=== PATIENT | male | born 1985 | race Caucasian/White ===

== ENCOUNTER 2020-12-04 17:19 | Inpatient (IN) | payer BC, MEDICARE, MEDICAID, SELFPAY ==
--- NOTE | ~2020-12-04 | CT_ITS ---
EXAMINATION: CT CHEST WITHOUT CONTRAST CLINICAL INFORMATION: Follow up pneumothorax. Suspected right lower lobar pneumonia versus effusion. COMPARISON: CT of the chest done on 12/04/2020. TECHNIQUE: Multidetector volumetric CT imaging of the chest was done. Axial MIP volume rendering provided. Sagittal and coronal reformatted images were obtained. This CT examination was performed using dose optimization techniques as appropriate, variously including the following: *Automated exposure control *Adjustment of mA and/or kV according to patient size (this includes techniques or standardized protocols for targeted exams where dose is matched to indication/reason for exam; i.e. extremities or head) *Use of iterative reconstruction technique DLP: 603 mGy-cm FINDINGS: BASTING MARKER: The tip of the tracheostomy tube is seen 4.6 cm above the level of the julissa. LUNGS: Previously documented bibasilar airspace consolidation associated with air bronchogram (right greater than left) shows no significant interval change. Previously documented multiple scattered sub-5 mm tiny nodules appear unchanged. The tracheobronchial tree is patent. Specifically, no new abnormalities since 12/04/2020. MEDIASTINUM: Stable trace amount of pericardial effusion is noted. The heart size is within normal limits. No mediastinal or hilar lymphadenopathy or significant atherosclerotic disease, unchanged. PLEURA: Trace amount of nondrainable bilateral pleural effusions, unchanged. Previously documented right-sided pneumothorax appears improved without resolution. AXILLA: No lymphadenopathy. UPPER ABDOMEN: Unremarkable. OSSEOUS STRUCTURES: No suspicious focal lesion, unchanged. CT/CT chest wo con IMPRESSION: 1. Trace amount, nondrainable bilateral pleural effusions appears similar to prior study dated 12/04/2020. 2. Bibasilar airspace consolidation associated with air bronchogram, also appears stable since prior study. 3. The site of the right-sided pneumothorax appears smaller, without resolution. No other significant change.
--- NOTE | ~2020-12-04 | XR_ITS ---
EXAMINATION: XR CHEST CLINICAL INFORMATION: Follow-up pneumothorax. COMPARISON: Portable chest radiographs dated 10/06/2020 and 12/05/2020. TECHNIQUE: Frontal view of the chest was obtained. FINDINGS: Support devices: Tracheostomy tube in place. There is a persistent tiny right apical pneumothorax. Mild bibasilar opacification is seen. The left lung is clear. The heart and mediastinal structures are unremarkable without significant shift. XR/XR chest 1V IMPRESSION: 1. Persistent tiny right apical pneumothorax. 2. Mild opacification at the right lung base appears increased and could represent a developing small right pleural effusion.
--- NOTE | ~2020-12-04 | CT_ITS ---
EXAMINATION: CT SOFT TISSUE NECK WITHOUT CONTRAST CLINICAL INFORMATION: Increased resistance to suctioning. COMPARISON: None TECHNIQUE: Helical imaging was performed in the axial plane with generation of coronal and sagittal reformatted images. This CT examination was performed using dose optimization techniques as appropriate, variously including the following: *Automated exposure control *Adjustment of mA and/or kV according to patient size (this includes techniques or standardized protocols for targeted exams where dose is matched to indication/reason for exam; i.e. extremities or head) *Use of iterative reconstruction technique DLP: 1152 mGy-cm FINDINGS: Tracheostomy tube properly positioned within the trachea. Significant amount of secretions present above the tracheostomy tube within the subglottic trachea, as well as within the oropharynx. Laryngeal structures are unremarkable. No retropharyngeal collection is seen. No contour abnormality or pathologic enhancement within the oral cavity or pharyngeal mucosal space. Deep spaces of the neck are symmetric. Parapharyngeal fat is preserved.No extra mucosal soft tissue mass or fluid collection is seen. No cervical adenopathy is identified. The parotid glands are homogeneous in attenuation. The submandibular glands are normal. The carotid sheath vasculature opacify normally. The thyroid gland is normal. The mastoid air cells and visualized portions of the paranasal sinuses are well-aerated. The temporomandibular joints are normal. No periapical disease is identified. No acute osseous abnormalities are seen. Small endplate osteophytes present from C3 through C7. The imaged portions of the brain parenchyma are unremarkable. Small right pneumothorax. Please see dedicated report for the intrathoracic findings. CT/CT soft tissue neck wo con IMPRESSION: * Tracheostomy tube appropriately positioned within the trachea. * Secretions present above the tracheostomy tube within the subglottic trachea, oropharynx and nasopharynx. * No evidence of deep space infection or other abnormality within the neck. * Small right pneumothorax. Please see dedicated report for the CT of chest.
--- NOTE | ~2020-12-04 | CT_ITS ---
EXAMINATION: CT CHEST WITHOUT CONTRAST CLINICAL INFORMATION: Shortness of breath. COMPARISON: Chest radiograph done earlier today at 5:52 PM. TECHNIQUE: Multidetector volumetric CT imaging of the chest was done. Axial MIP volume rendering provided. Sagittal and coronal reformatted images were obtained. This CT examination was performed using dose optimization techniques as appropriate, variously including the following: *Automated exposure control *Adjustment of mA and/or kV according to patient size (this includes techniques or standardized protocols for targeted exams where dose is matched to indication/reason for exam; i.e. extremities or head) *Use of iterative reconstruction technique DLP: 504 mGy-cm FINDINGS: [employer]: Endotracheal tube terminating at 3 cm above the julissa. Low lung volumes with increased interstitial markings. Cardiomegaly. LUNGS: There are consolidative opacities in the right greater than left lung bases with internal air bronchograms and associated small pleural effusions. There is a small to moderate right pneumothorax. There are scattered subcentimeter pulmonary nodules for instance, a 3 mm right upper lobe pulmonary nodule (111, series 10), a 2 mm right upper lobe pulmonary nodule on image 116, a 3 mm pulmonary nodule more inferiorly in the right upper lobe on image 166, a 3 mm pulmonary nodule anteriorly in the right lower lobe on image 173, and a 3 mm left upper lobe pulmonary nodule on image 139. There are mucous secretions above the tracheostomy balloon which is inflated to about 2.5 cm in diameter. Otherwise, the main airways are patent. MEDIASTINUM: Normal heart size with trace amount of pericardial fluid. There are a few enlarged mediastinal and hilar lymph nodes without pathologic enlargement. Normal appearance of the thyroid gland. PLEURA: As above, small pleural effusions bilaterally and a small right pneumothorax. AXILLA: Anasarca. Gynecomastia. No lymphadenopathy. UPPER ABDOMEN: Unremarkable. OSSEOUS STRUCTURES: No acute or aggressive osseous abnormalities. CT/CT chest wo con IMPRESSION: There are bibasilar consolidative changes with associated pleural effusions, concerning for multifocal infection or aspiration. There is a small to moderate right pneumothorax. There are multiple subcentimeter pulmonary nodules of uncertain etiology, possibly infectious or inflammatory. A short-term follow-up is recommended to ensure resolution of these findings. This critical result was discussed with JORGE Martinez at 12/04/2020 10:31 PM and it was ascertained that the content and urgency of the report was understood at the time of direct communication.
--- NOTE | ~2020-12-04 | XR_ITS ---
EXAMINATION: XR CHEST CLINICAL INFORMATION: Low oxygen saturation. Follow up pneumothorax. COMPARISON: Most recent chest radiograph dated 12/05/2020. TECHNIQUE: Frontal view of the chest was obtained. FINDINGS: Redemonstration of a tracheostomy. Minimal persistent right apical pneumothorax, decreased when compared to the prior examination. No pleural effusion. No new airspace consolidation. Stable cardiomediastinal silhouette. XR/XR chest 1V IMPRESSION: Minimal right apical pneumothorax, decreased when compared to the prior examination. Additional chronic findings are unchanged.
--- NOTE | ~2020-12-04 | XR_ITS ---
EXAMINATION: XR CHEST CLINICAL INFORMATION: Follow-up pneumothorax and right pleural effusion. COMPARISON: Chest x-ray December 07, 2020 TECHNIQUE: Frontal view of the chest was obtained. FINDINGS: Tracheostomy tube is similar in appearance. Cardiac silhouette is normal in size. The lungs are mildly hypoinflated. Similar subtle opacity of the right lung base is most suggestive of a small layering pleural effusion. Previously identified pneumothorax not definitively visualized on today's radiograph. XR/XR chest 1V IMPRESSION: -Stable small suspected right-sided pleural effusion. -Right apical pneumothorax not clearly reidentified on today's radiograph.
--- NOTE | ~2020-12-04 | XR_ITS ---
EXAMINATION: XR CHEST CLINICAL INFORMATION: Low O2 sat. Dyspnea. Hypoxia. Question pneumonia. COMPARISON: Most recent CT chest dated 12/08/2020. TECHNIQUE: Frontal view of the chest was obtained. FINDINGS: Resolution of the previously seen small right-sided pleural effusion and right lower lobe airspace opacification. No new airspace consolidation. No pleural effusion or pneumothorax. Stable cardiomediastinal silhouette. Redemonstration of a tracheostomy in appropriate position. XR/XR chest 1V IMPRESSION: No acute cardiopulmonary findings.
--- NOTE | ~2020-12-04 | XR_ITS ---
EXAMINATION: XR CHEST CLINICAL INFORMATION: Question of evolving pneumothorax. COMPARISON: 12/04/2020 TECHNIQUE: Frontal view of the chest was obtained. FINDINGS: Endotracheal tube terminates 4.8 cm above the julissa. Stable small right apical pneumothorax. Bilateral lower lobe streaky airspace opacities redemonstrated, as better seen on the recent CT. Trace bilateral pleural effusions. Normal heart size. XR/XR chest 1V IMPRESSION: Stable small right apical pneumothorax. Bilateral lower lobe airspace opacities redemonstrated, as better seen on the previous CT.
--- NOTE | ~2020-12-04 | US_ITS ---
EXAM: Limited chest ultrasound INDICATION: Rule out right-sided pleural effusion COMPARISON: Chest x-ray earlier today FINDINGS: Ultrasound imaging of the right chest revealed no pleural effusion.
--- NOTE | ~2020-12-04 | XR_ITS ---
EXAMINATION: XR CHEST CLINICAL INFORMATION: Shortness of breath. COMPARISON: None. TECHNIQUE: AP view of the chest was obtained. FINDINGS: Normal appearance of the cardiomediastinal silhouette. There is a midline tracheostomy tube terminating at 4 cm above the julissa. Low lung volumes with diffuse bronchovascular crowding and hazy opacities in the lung bases. No pleural effusion or pneumothorax. No acute osseous findings. XR/XR chest 1V IMPRESSION: Interstitial prominence and somewhat hazy opacities in the lung bases are indeterminate and could be related with bronchovascular crowding and subsegmental atelectases in the setting of low lung volumes. However, multifocal infiltrates are difficult to exclude.
--- NOTE | ~2020-12-04 | US_ITS ---
EXAMINATION: US VENOUS WITH DOPPLER UPPER EXTREMITY, BILATERAL CLINICAL INFORMATION: Bilateral upper extremity swelling. COMPARISON: None TECHNIQUE: Ultrasound of the upper extremity is performed using compression sonography and color and pulse Doppler flow with assessment of augmentation of flow. There is also imaging and Doppler assessment of the jugular and subclavian veins. Spectral analysis with color-flow imaging is performed. Today's examination is limited due to patient immobility and numerous tubes and wires overlying the patient. FINDINGS: Neither internal jugular vein could be visualized due to tracheostomy tube securement straps. Bilateral subclavian and axillary veins are patent without evidence of thrombus. Bilateral brachial, basilic and cephalic veins are patent without evidence of thrombus. Bilateral radial and ulnar veins are patent without evidence of thrombus. US/US venous duplex UE BI IMPRESSION: No DVT demonstrated in the bilateral upper extremities.
--- NOTE | ~2020-12-04 | XR_ITS ---
EXAMINATION: XR CHEST CLINICAL INFORMATION: Status post tracheostomy tube change COMPARISON: December 04, 2020 and earlier on same day today. TECHNIQUE: AP portable view of the chest was obtained. FINDINGS: Tracheostomy tube seen in place. The tip is not readily identified. No pneumothorax identified. No significant pleural effusion. There is a similar appearance at the lung bases with some retrocardiac airspace disease. Heart normal size. No evidence of pulmonary edema. XR/XR chest 1V IMPRESSION: Tracheostomy tube in place with distal tip not readily being identified.. Bilateral lower lobe disease without significant change from prior days study..
[2020-12-04 17:26] VITALS: BP 139/79; PULSE 83; RESP 24; O2SAT 100; BMI 30.4
--- NOTE | 2020-12-04 17:26 | ECG_ITS ---
Test Reason : DYSPNEA Blood Pressure : / mmHG Vent. Rate : 080 BPM Atrial Rate : 080 BPM P-R Int : 148 ms QRS Dur : 090 ms QT Int : 372 ms P-R-T Axes : 052 043 000 degrees QTc Int : 429 ms Normal sinus rhythm Nonspecific T wave abnormality Abnormal ECG No previous ECGs available Referred By: Zion Redman Electronically Signed By:STEVIE CANO MD
--- NOTE | 2020-12-04 17:34 | ED.SOB ---
HPI - SOB/Dyspnea General Chief Complaint: Dyspnea Stated Complaint: VENT PROBLEMS Time Seen by Provider: 12/04/20 17:22 Source: family Mode of arrival: EMS Limitations: other (Status post tracheostomy) History of Present Illness HPI Narrative: Patient with history of ALS diagnose 10/2019 was on BiPAP at home status post tracheostomy and on vent since 10/12 had a complicated medical course was admitted to [facility] with pneumonia at home for last 3 weeks on home vent, for last 2 days having problems with increased mucus plug having high peak pressure ventilator going off frequently. No fever no vomiting patient has a G-tube also patient nonverbal secondary to tracheostomy uses visual lj for communication Related Data Allergies Allergy/AdvReac Type Severity Reaction Status Date / Time succinylcholine Allergy Unknown Verified 12/04/20 17:26 Review of Systems Review of Systems: Limited review of system is patient is nonverbal status post tracheostomy patient using visual lj for communication Yes Unobtainable due to mental condition PMFSH Past Medical History Attestation statement: The following information was validated with the patient. Source: old records reviewed and nursing notes reviewed Medical History ALS (amyotrophic lateral sclerosis) Tracheostomy care Social History Social History Advance Directives: Yes Advance Directives on File: Yes Advance Directives Date on File: 12/04/20 Physical Exam Vital Signs: Vital Signs: Last Vital Signs Temp 99.4 F 12/04/20 18:27 Pulse 80 12/04/20 18:27 Resp 20 12/04/20 18:27 BP 128/74 12/04/20 18:27 Pulse Ox 98 12/04/20 18:27 Body Mass Index 30.4 Appearance: Alert. And awake. In mild distress status post tracheostomy Eyes: PERRLA, No Nystagmus HEENT: Pharynx normal. Oral Mucosa moist Neck: Tracheostomy in place CVS: Normal heart rate and rhythm. Pulses normal. Respiratory: No respiratory distress. Equal air entry bilateral, no rales, full long expiration Abdomen: Soft and nontender. Bowel sounds are present, no mass palpable, no CVA tenderness Skin: Skin warm and dry. Normal skin color. Normal skin turgor. Extremities: No lower extremity edema. Neuro: Alert and awake, quadriparesis with no movements of upper extremity or lower extremity Const: General: cooperative Nutritional Appearance: average body habitus HENMT: Mouth: Normal oral and palatal mucosa present GI: Inspection: Yes normal to inspection Palpation (GI): Soft to palpation and nontender : General: Yes no CVA tenderness Back/Spine/Pelvis: Back: no CVA tenderness MDM - SOB/Dyspnea MDM Narrative Medical decision making narrative: Patient AL is status post tracheostomy on home ventilator which was showing high pressure with frequent alarms over 24 hours. Patient had neurologist at [facility] but will be following Dr. Perez here the [place]. When patient placed on ventilator it was without any alarms when we connected patient's ventilator here there was no problem. Patient has tracheostomy tube without inner cannula. Case discussed with supervisor extrusion plan to keep the patient for observation overnight has unable to get patient's ventilator checked. Will admit the patient for observation Medical Records Attestation: I reviewed the patient's medical records. Lab Data Attestation: I reviewed the patient's lab results. Result diagrams: 12/04/20 18:18 12/04/20 18:18 Labs: Lab Results 12/04/20 12/04/20 12/04/20 Range/Units 18:18 18:18 18:18 WBC 11.2 H (4.8-10.8) X10*3/uL RBC 4.14 L (4.60-5.80) X10*6/uL Hgb 12.3 L (14.0-18.0) g/dl Hct 37.6 L (42-52) % MCV 90.8 (80-98) fL MCH 29.7 (27.0-33.0) pg MCHC 32.7 (31.0-36.0) g/dl RDW 13.5 (11.0-16.0) % Plt Count 285 (160-400) X10*3/uL MPV 9.2 L (9.4-12.4) fL Immature Gran % (Auto) 0.2 (0.0-0.4) % Neut % (Auto) 79.9 H (45-73) % Lymph % (Auto) 14.5 L (20-40) % [place] % (Auto) 3.6 (2-11) % Eos % (Auto) 1.4 (0-4) % Baso % (Auto) 0.4 (0-2) % Lymph # (Auto) 1.6 (1.2-4.9) X10*3/uL Winona # (Auto) 0.4 (0.1-1.2) X10*3/uL Eos # (Auto) 0.2 (0.0-0.4) X10*3/uL Baso # (Auto) 0.0 (0.0-0.2) X10*3/uL Abs Immat Gran (auto) 0.02 (0.00-0.03) X10*3/uL Absolute Neuts (auto) 9.0 H (2.0-8.3) X10*3/uL Absolute Nucleated RBC 0.000 (0.0-0.012) X10*3/uL Nucleated RBC % (auto) 0.0 (0.0-0.2) /100WBC Sodium 138 (135-145) mmol/L Potassium 4.2 (3.3-5.1) mmol/L Chloride 104 (96-108) mmol/L Carbon Dioxide 22 (22-29) mmol/L Anion Gap 16 (12-20) BUN 13 (9-16) mg/dL Creatinine 0.47 L (0.5-1.4) mg/dL Estim Creat Clear Calc 244.5 Estimated GFR > 60 Random Glucose 99 (60-115) mg/dL Lactic Acid (0.5-2.0) mmol/L Calcium 9.4 (8.4-10.2) mg/dL Total Bilirubin 0.4 (0.0-1.0) mg/dL Direct Bilirubin 0.2 (0.0-0.5) mg/dL AST 12 (5-37) U/L ALT 16 (0-40) U/L Alkaline Phosphatase 105 (39-117) U/L Total Protein 6.9 (6.5-8.0) g/dL Albumin 4.1 (3.5-5.0) g/dL COVID-19 (GEORGINA) Negative (Negative) COVID-19 Clin Com See Note 12/04/20 Range/Units 18:18 WBC (4.8-10.8) X10*3/uL RBC (4.60-5.80) X10*6/uL Hgb (14.0-18.0) g/dl Hct (42-52) % MCV (80-98) fL MCH (27.0-33.0) pg MCHC (31.0-36.0) g/dl RDW (11.0-16.0) % Plt Count (160-400) X10*3/uL MPV (9.4-12.4) fL Immature Gran % (Auto) (0.0-0.4) % Neut % (Auto) (45-73) % Lymph % (Auto) (20-40) % Win[place] % (Auto) (2-11) % Eos % (Auto) (0-4) % Baso % (Auto) (0-2) % Lymph # (Auto) (1.2-4.9) X10*3/uL Win[place] # (Auto) (0.1-1.2) X10*3/uL Eos # (Auto) (0.0-0.4) X10*3/uL Baso # (Auto) (0.0-0.2) X10*3/uL Abs Immat Gran (auto) (0.00-0.03) X10*3/uL Absolute Neuts (auto) (2.0-8.3) X10*3/uL Absolute Nucleated RBC (0.0-0.012) X10*3/uL Nucleated RBC % (auto) (0.0-0.2) /100WBC Sodium (135-145) mmol/L Potassium (3.3-5.1) mmol/L Chloride (96-108) mmol/L Carbon Dioxide (22-29) mmol/L Anion Gap (12-20) BUN (9-16) mg/dL Creatinine (0.5-1.4) mg/dL Estim Creat Clear Calc Estimated GFR Random Glucose (60-115) mg/dL Lactic Acid 1.4 (0.5-2.0) mmol/L Calcium (8.4-10.2) mg/dL Total Bilirubin (0.0-1.0) mg/dL Direct Bilirubin (0.0-0.5) mg/dL AST (5-37) U/L ALT (0-40) U/L Alkaline Phosphatase (39-117) U/L Total Protein (6.5-8.0) g/dL Albumin (3.5-5.0) g/dL COVID-19 (GEORGINA) (Negative) COVID-19 Clin Com Imaging Data Chest x-ray: Attestation: I personally reviewed and interpreted this imaging study as follows: Radiologist's impression: FINDINGS: Normal appearance of the cardiomediastinal silhouette. There is a midline tracheostomy tube terminating at 4 cm above the julissa. Low lung volumes with diffuse bronchovascular crowding and hazy opacities in the lung bases. No pleural effusion or pneumothorax. No acute osseous findings. XR/XR chest 1V IMPRESSION: Interstitial prominence and somewhat hazy opacities in the lung bases are indeterminate and could be related with bronchovascular crowding and subsegmental atelectases in the setting of low lung volumes. However, multifocal infiltrates are difficult to exclude. Discharge Plan Discharge Clinical Impression: Chronic hypoxemic respiratory failure, ALS (amyotrophic lateral sclerosis) Patient Disposition: Admitted As Inpatient
[2020-12-04 17:56] VITALS: BP 134/74; PULSE 86; O2SAT 100
[2020-12-04 18:27] VITALS: BP 128/74; PULSE 80; RESP 20; TEMP 37.4; O2SAT 98
[2020-12-04 18:28] LABS: MANUAL DIFF FLAG NO
[2020-12-04 18:31] LABS: Basophils Percent Auto 0.4 % (0-2); Eosinophils Absolute Auto 0.2 X10*3/uL (0.0-0.4); Eosinophils Percent Auto 1.4 % (0-4); Hematocrit 37.6 % (42-52); Hemoglobin 12.3 g/dl (14.0-18.0); Imm Gran Abs Auto 0.02 X10*3/uL (0.00-0.03); Imm Gran Pct Auto 0.2 % (0.0-0.4); Lymphocytes Absolute Auto 1.6 X10*3/uL (1.2-4.9); Lymphocytes Percent Auto 14.5 % (20-40); Mean Corpuscular HGB Conc 32.7 g/dl (31.0-36.0); Mean Corpuscular Hemoglobin 29.7 pg (27.0-33.0); Mean Corpuscular Volume 90.8 fL (80-98); Mean Platelet Volume 9.2 fL (9.4-12.4); Monocytes Absolute Auto 0.4 X10*3/uL (0.1-1.2); Monocytes Percent Auto 3.6 % (2-11); Neutrophils Percent Auto 79.9 % (45-73); Platelet Count 285 X10*3/uL (160-400); Red Blood Count 4.14 X10*6/uL (4.60-5.80); Red Cell Distribution Width 13.5 % (11.0-16.0); White Blood Count 11.2 X10*3/uL (4.8-10.8)
[2020-12-04 18:40] LABS: Lactic Acid 1.4 mmol/L (0.5-2.0)
[2020-12-04 18:49] LABS: Alanine Aminotransferase 16 U/L (0-40); Albumin Level 4.1 g/dL (3.5-5.0); Alkaline Phosphatase 105 U/L (39-117); Anion Gap 16 (12-20); Aspartate Amino Transferase 12 U/L (5-37); Bilirubin Direct 0.2 mg/dL (0.0-0.5); Bilirubin Total 0.4 mg/dL (0.0-1.0); Blood Urea Nitrogen 13 mg/dL (9-16); Calcium 9.4 mg/dL (8.4-10.2); Carbon Dioxide 22 mmol/L (22-29); Chloride 104 mmol/L (96-108); Creatinine Clr Calc Pharmacy 244.5; Estimated Glomerular Filt Rate > 60; Glucose Random 99 mg/dL (60-115); Potassium 4.2 mmol/L (3.3-5.1); Sodium 138 mmol/L (135-145); Total Protein 6.9 g/dL (6.5-8.0)
[2020-12-04 18:50] LABS: COVID-19 Test Negative (Negative)
--- NOTE | 2020-12-04 20:17 | PC.NURSE ---
Jasmeet Blanco, ICU PA-C for pt to take home meds. Meds administered by caregiver at bedside via G-tube: hydromorphone, oxycodone, diazepam, gabapentin, ondansetron.
[2020-12-04 20:22] VITALS: O2SAT 98
--- NOTE | 2020-12-04 20:34 | P.HPCC_ITS ---
History of Present Illness Date of Service: 12/04/20 <Yvonne Nelson PA-C - Last Filed: 12/05/20 06:56> Attending physician on admission: Cesario Jarrett <Yvonne Nelson PA-C - Last Filed: 12/05/20 06:56> Chief Complaint: Hypoxic respiratory failure <Yvonne Nelson PA-C - Last Filed: 12/05/20 06:56> Patient is a 34-year-old male with a past medical history of SOD1 ALS who received a tracheostomy and G-tube in September 2020 at [facility] presents with acute on chronic respiratory failure secondary to his vents malfunctioning at home /high peak pressures. His hospital course was complicated by pneumonia in the end of September while in rehab, he had to return to [facility] (10/21-10/31) but was discharged and has been home for the past 3 weeks with his family managing his care. He is here with his fiancee and his father and they state he was having peak pressures up to low 40's for 90 minutes at a time, after irrigating several times, the peak pressures went down but eventually they came back up again. They tried the other vent and had the same cyclical issues and elevated peak pressures, so they were forced to bag the patient until they got him to the emergency room. They met a lot of resistance when they tried to push on the bag but eventually fluid came up out his mouth and they were able to bag some more. They state over the past week they were also having trouble passing suction catheter at all different levels, approx 6cm-24cm deep, and state they have seen some green sputum while doing trach care during the same time frame. Patient states he feels like there is a ?rock in his throat . They deny he has had fevers, increased secretions, vomiting or change in bladder or bowels. Patient is currently being treated with nystatin for oral thrush, family has been applying it to his tongue and suctioning it. Patient's neurologist is Dr. Christensen in the ALS Clinic at [facility], he was diagnosed in Oct 2019. 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 Finally, the trach was placed in September of 2020. He is followed by Dr Smart [place] [facility] [place]. Patients home vent settings are as follows: AC TV410, RR20, PEEP 8, itime 1.3, on room air. Labs revealed a slightly elevated WBC at 11.2, VSS, pt comfortable. PE revealed inability to pass suction catheter past 24 centimetres. Respiratory therapist informed me she was unable to pass it at approximately 6-8 centimetres when he initially arrived to the emergency department. He was not having high peak pressures and saline irrigation helped. Patient speaks via an eye gaze device and is very well informed of his care and is able to answer all questions appropriately. He is on a multitude of medications at home including lovenox, scheduled meds of oxycodone, hydromorphone, gabapentin and diazepam as well as atrovent and albuterol. Reviewed with patient and his family that he is a full code. Assessment and plan discussed with Dr. Jarrett. <Yvonne Nelson PA-C - Last Filed: 12/05/20 06:56> Review of Systems Review of Systems: Yes all other systems are reviewed and are negative <Yvonne Nelson PA-C - Last Filed: 12/05/20 06:56> [facility] Past Medical History Medical History: Medical History (Updated 12/06/20 @ 10:54 by Kristen Cunha MD) ALS (amyotrophic lateral sclerosis) Mucus plugging of bronchi Tracheostomy care <Yvonne Nelson PA-C - Last Filed: 12/05/20 06:56> Functional capacity: bed bound <Yvonne Nelson PA-C - Last Filed: 12/05/20 06:56> Social History Social History: Social History Currently Displaying Signs/Symptoms of Drug Intoxication Withdrawal: No Advance Directives: Yes Advance Directives on File: Yes Advance Directives Date on File: 12/04/20 Do you have thoughts of harming others: None Do you have a plan to hurt others: No Plan service: No Current occupational status: previously employed <KARMEN Martinez Last Filed: 12/05/20 06:56> Meds Allergies/Adverse reactions: Allergies Allergy/AdvReac Type Severity Reaction Status Date / Time succinylcholine Allergy Unknown Verified 12/04/20 17:26 <Yvonne Nelson PA-C - Last Filed: 12/05/20 06:56> Home medications: Home Medications Medication Instructions Recorded Confirmed Last Taken Type acetaminophen 500 mg/15 mL oral 650 mg FEEDING TUBE Q4H PRN 12/04/20 12/04/20 12/04/20 History liquid (Pain Relief Adult) albuterol sulfate 90 mcg/actuation 2 puff INHALATION Q6H 12/04/20 12/04/20 12/04/20 History aerosol inhaler baclofen 10 mg tablet 5 mg FEEDING TUBE Q8H 12/04/20 12/04/20 12/04/20 History cholecalciferol (vitamin D3) 25 1,000 unit FEEDING TUBE DAILY 12/04/20 12/04/20 12/04/20 History mcg (1,000 unit) tablet diazepam 5 mg/5 mL (1 mg/mL) oral 4 mg FEEDING TUBE Q6H PRN 12/04/20 12/06/20 12/04/20 History solution docusate sodium 50 mg/5 mL oral 100 mg FEEDING TUBE BID 12/04/20 12/04/20 Unknown History liquid (Silace) enoxaparin 40 mg/0.4 mL 40 mg SUBCUT DAILY 12/04/20 12/04/20 12/04/20 History subcutaneous syringe fentanyl 100 mcg/hr transdermal 1 patch TOPICAL Q3D 12/04/20 12/04/20 12/02/20 History patch gabapentin 250 mg/5 mL oral 600 mg FEEDING TUBE Q8H 12/04/20 12/04/20 12/04/20 History solution hydromorphone 1 mg/mL oral liquid 1.5 ml FEEDING TUBE Q3H PRN 12/04/20 12/04/20 12/04/20 History ipratropium bromide 17 2 puff INHALATION Q6H 12/04/20 12/04/20 12/04/20 History mcg/actuation HFA aerosol inhaler (Atrovent HFA) lidocaine 5 % topical patch 1 patch TOPICAL DAILY 12/04/20 12/04/20 12/04/20 History nicotine 14 mg/24 hr daily 1 patch TOPICAL DAILY 12/04/20 12/04/20 12/04/20 History transdermal patch nystatin 100,000 unit/mL oral 4 ml PO QID 12/04/20 12/04/20 12/04/20 History suspension ondansetron HCl 4 mg tablet 4 mg FEEDING TUBE Q6H PRN 12/04/20 12/04/20 12/04/20 History oxycodone 5 mg/5 mL oral solution 20 mg FEEDING TUBE Q3H PRN 12/04/20 12/04/20 12/04/20 History pantoprazole 40 mg tablet,delayed 1 tab PO DAILY 12/04/20 12/04/20 Unknown History release polyethylene glycol 3350 17 17 g FEEDING TUBE Q2D 12/04/20 12/04/20 12/04/20 History gram/dose oral powder sennosides 8.8 mg/5 mL oral syrup 5 - 10 ml FEEDING TUBE BEDTIME PRN 12/04/20 12/04/20 12/04/20 History (senna) thiamine mononitrate (vit B1) 100 100 mg FEEDING TUBE DAILY 12/04/20 12/04/20 History mg tablet (Vitamin B-1 (mononitrate)) trazodone 50 mg tablet 1 tab FEEDING TUBE BEDTIME PRN 12/04/20 12/04/20 Unknown History zinc sulfate 50 mg zinc (220 mg) 220 mg FEEDING TUBE DAILY 12/04/20 12/04/20 12/04/20 History capsule <Yvonne Nelson PA-C - Last Filed: 12/05/20 06:56> Physical Exam 2 Vital Signs: Vital Signs: Last Vital Signs Temp 99.4 F 12/04/20 18:27 Pulse 80 12/04/20 18:27 Resp 20 12/04/20 18:27 BP 128/74 12/04/20 18:27 Pulse Ox 98 12/04/20 18:27 Body Mass Index 30.4 <Yvonne Nelson PA-C - Last Filed: 12/05/20 06:56> Const: General: cooperative, healthy appearing, comfortable, no acute distress and well developed <Yvonne Nelson PA-C - Last Filed: 12/05/20 06:56> Orientation/consciousness: patient oriented x3 <Yvonne Nelson PA-C - Last Filed: 12/05/20 06:56> Limitations: no limitations <KARMEN Martinez Last Filed: 12/05/20 06:56> HENMT: Head: Yes normal to inspection <Yvonne Nelson PA-C - Last Filed: 12/05/20 06:56> Eyes: General: appearance normal, both eyes and all related structures <Yvonne Nelson PA-C - Last Filed: 12/05/20 06:56> Neck: Other: trach in place <Yvonne Nelson PA-C - Last Filed: 12/05/20 06:56> Neck: Yes full ROM <Yvonne Nelson PA-C - Last Filed: 12/05/20 06:56> Resp: Effort & Inspection: normal respiratory effort <Yvonne Nelson PA-C - Last Filed: 12/05/20 06:56> Auscultation: clear to auscultation bilaterally <Yvonne Nleson PA-C - Last Filed: 12/05/20 06:56> Cardio: Rate: regular rate <Yvonne Nelson PA-C - Last Filed: 12/05/20 06:56> Rhythm: regular rhythm <Yvonne Nelson PA-C - Last Filed: 12/05/20 06:56> Heart sounds: normal S1 and S2 <Yvonne Nelson PA-C - Last Filed: 12/05/20 06:56> GI: Inspection: Yes normal to inspection <KARMEN Martinez Last Filed: 12/05/20 06:56> Palpation (GI): Soft to palpation and nontender <Yvonne Nelson PA-C - Last Filed: 12/05/20 06:56> Skin: General skin exam: no rashes or lesions noted <MAURISIO Martinez - Last Filed: 12/05/20 06:56> Neuro: General: patient oriented x3 <Yvonne Nelson PA-C - Last Filed: 12/05/20 06:56> Extrem: General: Yes normal to inspection <KARMEN Martinez Last Filed: 12/05/20 06:56> Results Labs CBC and Chem 7: : 12/07/20 05:10 12/07/20 05:10 <KARMEN Martinez Last Filed: 12/05/20 06:56> Labs: Laboratory Results - last 24 hr 12/04/20 12/04/20 12/04/20 18:18 18:18 18:18 MCV 90.8 MCH 29.7 MCHC 32.7 RDW 13.5 Plt Count 285 MPV 9.2 L Immature Gran % (Auto) 0.2 Neut % (Auto) 79.9 H Lymph % (Auto) 14.5 L Stanton % (Auto) 3.6 Eos % (Auto) 1.4 Baso % (Auto) 0.4 Lymph # (Auto) 1.6 Stanton # (Auto) 0.4 Eos # (Auto) 0.2 Baso # (Auto) 0.0 Abs Immat Gran (auto) 0.02 Absolute Neuts (auto) 9.0 H Absolute Nucleated RBC 0.000 Nucleated RBC % (auto) 0.0 Anion Gap 16 Estim Creat Clear Calc 244.5 Estimated GFR > 60 Random Glucose 99 Lactic Acid Calcium 9.4 Total Bilirubin 0.4 Direct Bilirubin 0.2 AST 12 ALT 16 Alkaline Phosphatase 105 Total Protein 6.9 Albumin 4.1 COVID-19 (GEORGINA) Negative COVID-19 Clin Com See Note 12/04/20 18:18 MCV MCH MCHC RDW Plt Count MPV Immature Gran % (Auto) Neut % (Auto) Lymph % (Auto) [place] % (Auto) Eos % (Auto) Baso % (Auto) Lymph # (Auto) Stanton # (Auto) Eos # (Auto) Baso # (Auto) Abs Immat Gran (auto) Absolute Neuts (auto) Absolute Nucleated RBC Nucleated RBC % (auto) Anion Gap Estim Creat Clear Calc Estimated GFR Random Glucose Lactic Acid 1.4 Calcium Total Bilirubin Direct Bilirubin AST ALT Alkaline Phosphatase Total Protein Albumin COVID-19 (GEORGINA) COVID-19 Clin Com <Yvonne Nelson PA-C - Last Filed: 12/05/20 06:56> Imaging Radiologist's Impressions: Impressions Chest X-Ray 12/04/20 17:26 IMPRESSION: Interstitial prominence and somewhat hazy opacities in the lung bases are indeterminate and could be related with bronchovascular crowding and subsegmental atelectases in the setting of low lung volumes. However, multifocal infiltrates are difficult to exclude. CT/CT soft tissue neck wo con IMPRESSION: *? Tracheostomy tube appropriately positioned within the trachea. *? Secretions present above the tracheostomy tube within the subglottic trachea, oropharynx and nasopharynx. *? No evidence of deep space infection or other abnormality within the neck. CT/CT chest wo con IMPRESSION: There are bibasilar consolidative changes with associated pleural effusions, concerning for multifocal infection or aspiration. There is a small to moderate right pneumothorax. There are multiple subcentimeter pulmonary nodules of uncertain etiology, possibly infectious or inflammatory. A short-term follow-up is recommended to ensure resolution of these findings. <Yvonne Nelson PA-C - Last Filed: 12/05/20 06:56> Assessment and Plan (1) ALS (amyotrophic lateral sclerosis): Status: Acute <Yvonne Nelson PA-C - Last Filed: 12/05/20 06:56> Continue lovenox, nebs, pain meds, nebs and vitamins <Yvonne Nelson PA-C - Last Filed: 12/05/20 06:56> (2) Acute on chronic respiratory failure with hypoxia: Status: Acute <KARMEN Martinez Last Filed: 12/05/20 06:56> Patient to get neck CT and chest CT to look for further signs of pneumonia or inflammation, likely bronchoscopy tomorrow with Dr. Perez. Continue home vent settings. Per Dr Jarrett, no antibiotics indicated at this time. <Yvonne Nelson PA-C - Last Filed: 12/05/20 06:56> (3) Thrush, oral: Status: Acute <Yvonne Nelson PA-C - Last Filed: 12/05/20 06:56> Continue Nystatin swish and suction <Yvonne Nelson PA-C - Last Filed: 12/05/20 06:56> (4) Pneumothorax on right: Status: Acute <KARMEN Martinez Last Filed: 12/05/20 06:56> Small right sided, will monitor, consult to thoracic surgery, they will review CXR in the AM and stop by later in the day to see pt. <Yvonne Nelson PA-C - Last Filed: 12/05/20 06:56> (5) Bilateral pneumonia: Status: Acute <Yvonne Nelson PA-C - Last Filed: 12/05/20 06:56> Started Jordy and Patrice, will get sputum culture as well as records from [facility] for recent pneumonia admission. <Yvonne Nelson PA-C - Last Filed: 12/05/20 06:56> (6) Bilateral pleural effusion: Status: Acute <Yvonne Nelson PA-C - Last Filed: 12/05/20 06:56> Monitor, ? chronic as notes from [facility] show pt had them on 10/01/00 and 10/23/00 <Yvonne Nelson PA-C - Last Filed: 12/05/20 06:56>
[2020-12-04 20:49] VITALS: PULSE 76; O2SAT 97
--- NOTE | 2020-12-04 21:30 | PHA.MEDREC ---
Pharmacy Consult ? Medication Reconciliation Pharmacy has completed the medication reconciliation. Spoke with patients roxanne in ED who had a detailed list of home meds
[2020-12-04 21:48] VITALS: BP 125/73; O2SAT 95
--- NOTE | 2020-12-04 23:54 | PC.NURSE ---
Report given to VALET CASHIER, pt attached to portable monitor and transported in stable condition w/ all belongings via this RN and RT Herman. Sister remains at bedside
[2020-12-05] VITALS (36 sets, daily range): BP systolic 116–176; BP diastolic 54–93; PULSE 68–109; RESP 12–20; TEMP 35.4–37.1; O2SAT 91–100; BMI 30.4
[2020-12-05] MEDS: HYDROmorphone HCl 2 MG TABLET G-TUBE ×5 (00:12→20:17)
[2020-12-05] MEDS: Piperacillin Sodium/Tazobactam 4.5 GM in 0.9 % Sodium Chloride 100 ML IV ×2 (00:13→06:11)
[2020-12-05] MEDS: oxyCODONE HCl Immed Release 5 MG TABLET 20 MG G-TUBE ×5 (00:13→20:18)
[2020-12-05] MEDS: Albuterol/Iprat 2.5/0.5MG 3 ML AMPUL.NEB INHALE ×5 (00:21→20:53)
[2020-12-05] MEDS: diazePAM 5 MG TABLET 2.5 MG G-TUBE ×2 (01:04→20:17)
[2020-12-05] MEDS: vancomycin HCL 1,250 MG in 0.9 % Sodium Chloride 250 ML 166.67 MG IV (01:04)
--- NOTE | 2020-12-05 02:00 | ECG_ITS ---
Test Reason : BASE LINE EKG Blood Pressure : / mmHG Vent. Rate : 090 BPM Atrial Rate : 090 BPM P-R Int : 000 ms QRS Dur : 086 ms QT Int : 374 ms P-R-T Axes : 000 042 -24 degrees QTc Int : 457 ms Normal sinus rhythm [address] & T wave abnormality, consider inferior ischemia Abnormal ECG ST more depressed Inferior leads Lateral leads Referred By: Yvonne Nelson Electronically Signed By:STEVIE CANO MD
[2020-12-05 03:47] LABS: Appearance Urine HAZY; Color Urine YELLOW; Glucose Urine UA NEG (NEG); Leukocyte Esterase Urine NEG (NEG); Nitrite Urine NEG (NEG); Urine Blood NEG (NEG); Urine Ketones NEG (NEG); Urine Protein NEG (NEG-TRACE)
[2020-12-05 03:54] LABS: UACC Culture Trigger NO
[2020-12-05 05:30] LABS: VBG Base Excess -2.8 mmol/L; VBG HCO3 21 mmol/L (22-26); VBG pCO2 37 mmHg; VBG pH 7.37 (7.32-7.43); VBG pO2 88 mmHg
[2020-12-05 05:50] LABS: MANUAL DIFF FLAG NO
[2020-12-05 05:52] LABS: Basophils Absolute Auto 0.1 X10*3/uL (0.0-0.2); Basophils Percent Auto 0.5 % (0-2); Eosinophils Absolute Auto 0.1 X10*3/uL (0.0-0.4); Eosinophils Percent Auto 1.1 % (0-4); Hematocrit 36.9 % (42-52); Imm Gran Abs Auto 0.05 X10*3/uL (0.00-0.03); Imm Gran Pct Auto 0.4 % (0.0-0.4); Lymphocytes Absolute Auto 1.5 X10*3/uL (1.2-4.9); Lymphocytes Percent Auto 11.5 % (20-40); Mean Corpuscular HGB Conc 32.5 g/dl (31.0-36.0); Mean Corpuscular Hemoglobin 30.1 pg (27.0-33.0); Mean Corpuscular Volume 92.5 fL (80-98); Mean Platelet Volume 9.1 fL (9.4-12.4); Monocytes Absolute Auto 0.5 X10*3/uL (0.1-1.2); Neutrophils Absolute Auto 10.5 X10*3/uL (2.0-8.3); Neutrophils Percent Auto 82.5 % (45-73); Platelet Count 296 X10*3/uL (160-400); Red Blood Count 3.99 X10*6/uL (4.60-5.80); Red Cell Distribution Width 13.4 % (11.0-16.0); White Blood Count 12.8 X10*3/uL (4.8-10.8)
[2020-12-05 05:57] LABS: Venous Blood Gas Refer to POC result
[2020-12-05] MEDS: Ondansetron ODT 4 MG TAB.RAPDIS TRANSLINGU ×2 (06:11→09:29)
[2020-12-05] MEDS: Pantoprazole Sodium 40 MG/10 ML VIAL IVPUSH (06:11)
[2020-12-05 06:14] LABS: Anion Gap 14 (12-20); Blood Urea Nitrogen 13 mg/dL (9-16); Calcium 9.2 mg/dL (8.4-10.2); Carbon Dioxide 24 mmol/L (22-29); Chloride 106 mmol/L (96-108); Creatinine Clr Calc Pharmacy 239.4; Estimated Glomerular Filt Rate > 60; Glucose Random 108 mg/dL (60-115); Magnesium 2.1 mg/dL (1.6-2.6); Phosphorus 6.5 mg/dL (2.7-4.5); Potassium 4.4 mmol/L (3.3-5.1); Sodium 140 mmol/L (135-145)
[2020-12-05 06:22] LABS: Troponin-I High Sensitivity 3.7 ng/L (<3.5-35.0)
[2020-12-05 08:40] LABS: Procalcitonin 0.03 ng/mL
[2020-12-05] MEDS: Gabapentin 600 MG TABLET G-TUBE ×3 (08:58→20:16)
[2020-12-05] MEDS: Baclofen 10 MG TABLET 5 MG G-TUBE ×3 (08:58→20:16)
[2020-12-05] MEDS: Docusate Sodium 100 MG/10 ML LIQUID G-TUBE (08:59)
[2020-12-05] MEDS: Nicotine 14 MG PATCH.TD24 TRANSDERMA (09:00)
[2020-12-05] MEDS: Zinc Sulfate 220 MG CAPSULE G-TUBE (09:00)
[2020-12-05] MEDS: Lidocaine 4 % Patch ADH..PATCH 1 PATCH TRANSDERMA (09:01)
[2020-12-05] MEDS: Enoxaparin Sodium 40 MG/0.4 ML SYRINGE SUBCUT (09:02)
[2020-12-05 09:34] LABS: Glucose, Whole Blood 139 mg/dL (60-115)
[2020-12-05] MEDS: fentaNYL 100 MCG PATCH.TD72 TRANSDERMA (09:53)
--- NOTE | 2020-12-05 12:03 | MHC.CLN ---
Addendum entered by Chika Shaffer RD 12/05/20 12:07: AGREE WITH PROVIDER'S ASSESSMENT BELOW Original Note: PT IS AT INCREASED NUTRITION RISK R/T HOME TUBE FEEDING SECONDARY TO ALS AND LOW [employer]IMAEL PT'S HOME TUBE FEEDING PROVIDES 2358 KCALS (25.9 KCALS/KG), 102 GRAMS PROTEIN (1.12 G/KG), AND 1209 CC FREE WATER FROM FORMULA W/ 250 CC WATER FLUSHES Q 4 HOURS (29.8 CC/KG) RECOMMEND COMPARABLE TUBE FEEDING VITAL 1.5 AT MAX GOAL RATE 65 ML/HR TO PROVIDE 2340 KCALS (25.7 KCALS/KG), 105 GRAMS PROTEIN (1.15 G/KG), AND 1192 CC FREE WATER FROM FORMULA W/ 240 CC WATER FLUSHES Q 4 HOURS (29 CC/KG) MONITOR TOLERANCE AND LYTES
[2020-12-05] MEDS: Lidocaine HCl 2 % MPF 5 ML VIAL INTRACAMER (13:00)
[2020-12-05] MEDS: cefEPime HCl 2 GM in 0.9 % Sodium Chloride 50 ML IV ×2 (13:17→20:16)
[2020-12-05] MEDS: Acetaminophen Oral Liquid 650 MG/20.3 ML SOLUTION G-TUBE (13:32)
[2020-12-05] MEDS: Metoclopramide HCl 10 MG/2 ML VIAL IVPUSH (14:00)
--- NOTE | 2020-12-05 14:05 | PM.CNGS ---
History of Present Illness Consult details Consult date: 12/05/20 Reason for consult: other (Right pneumothorax) Narrative: Patient is a 34 y.o. male with a PMH of SOD1 ALS who [facility] chronic [facility] failure with hypoxia. Patient's family reportedly was having difficulty suctioning tracheostomy and peak pressures in the low 40's for approx 90 minutes at a time. Due to this, they brought the patient in for further evaluation and ended up bagging him prior to arrival dislodging some fluid out of his mouth. On arrival, patient had a CXR done which showed small right apical PTX which was then followed with a chest CT scan. Chest CT showed bibasilar consolidative changes with associated pleural effusions, concerning for multifocal infection or aspiration, a small to moderate right pneumothorax, and multiple subcentimeter pulmonary nodules of uncertain etiology, possibly infectious or inflammatory. Patient subsequently started on IV abx for PNA, had a bronchoscopy performed by Dr. Perez today, and a repeat CXR was performed this am which again showed stable small right-sided pneumothorax. Thoracic surgery consulted for further management of right pneumothorax. Patient seen and examined this afternoon with father at bedside. Nonverbal, uses computer to communicate. Denies any worsening SOB, resp distress, cough, fevers, or chills. Feels ok. Review of Systems Review of Systems: Yes all other systems are reviewed and are negative Constitutional: Constitutional: Reports no additional constitutional complaints Eyes: Eyes: Reports as per HPI ENT: Reports system reviewed and no additional complaints, except as documented Cardiovascular: Cardiovascular: Reports no additional cardiovascular complaints Respiratory: Respiratory: Reports no additional respiratory complaints Gastrointestinal: Gastrointestinal: Reports no additional gastrointestinal complaints Genitourinary: Genitourinary: Reports no additional male genitourinary complaints Musculoskeletal: Musculoskeletal: Reports no additional musculoskeletal complaints Neurologic: Reports system reviewed and no additional complaints, except as documented Psychiatric: Psychiatric: Reports no additional psychiatric complaints Endocrine: Endocrine: Reports no additional endocrine complaints REPLACED BY [facility] Past Medical History Medical History (Updated 12/26/20 @ 13:03 by Ladarius Perez MD) ALS (amyotrophic lateral sclerosis) Chronic hypercapnic respiratory failure Mucus plugging of bronchi Pneumothorax Tracheostomy care Functional capacity: bed bound Social History Social History (Updated 12/26/20 @ 10:20 by SUNDAR Tan) Patient Tobacco Use Status: Former Tobacco user Tobacco use type: Cigarette Years Smoked: 20 years Advance Directives Date on File: 12/04/20 service: No Current occupational status: previously employed Meds Allergies Allergy/AdvReac Type Severity Reaction Status Date / Time succinylcholine Allergy Severe Cardiac Verified 12/26/20 10:15 Arrest Active Medications: Current Medications Acetaminophen (Acetaminophen Oral Liquid 650 Mg/20.3 Ml Solution) 650 mg G-TUBE Q4H PRN PRN Reason: Pain (Scale Score 1-3) Last Admin: 12/05/20 13:32 Dose: 650 mg Documented by: Albuterol/Ipratropium (Albuterol/Iprat 2.5/0.5mg 3 Ml Ampul.Neb) 3 ml INHALE RQ6H [facility] Last Admin: 12/05/20 11:11 Dose: 3 ml Documented by: Baclofen (Baclofen 10 Mg Tablet) 5 mg G-TUBE TID [facility] Last Admin: 12/05/20 08:58 Dose: 5 mg Documented by: Diazepam (Diazepam 5 Mg Tablet) 2.5 mg G-TUBE Q6H PRN PRN Reason: Muscle Spasm Last Admin: 12/05/20 01:04 Dose: 2.5 mg Documented by: Docusate Sodium (Docusate Sodium 100 Mg/10 Ml Liquid) 100 mg G-TUBE BID [facility] Last Admin: 12/05/20 08:59 Dose: 100 mg Documented by: Enoxaparin Sodium (Enoxaparin Sodium 40 Mg/0.4 Ml Syringe) 40 mg SUBCUT DAILY [facility] Last Admin: 12/05/20 09:02 Dose: 40 mg Documented by: Fentanyl (Fentanyl 100 Mcg Patch.Td72) 100 mcg TRANSDERMA Q3D [facility] Last Admin: 12/05/20 09:53 Dose: 100 mcg Documented by: Gabapentin (Gabapentin 600 Mg Tablet) 600 mg G-TUBE TID [facility] Last Admin: 12/05/20 08:58 Dose: 600 mg Documented by: Hydromorphone HCl (Hydromorphone Hcl 2 Mg Tablet) 2 mg G-TUBE Q3H PRN PRN Reason: Pain (Scale Score 4-6) Last Admin: 12/05/20 09:04 Dose: 2 mg Documented by: Cefepime HCl 2 gm/ Sodium (Chloride) 50 mls @ 100 mls/hr IV Q8H [facility] Last Admin: 12/05/20 13:17 Dose: 100 mls/hr Documented by: Lidocaine (Lidocaine 4 % Patch Adh..Patch) 1 patch TRANSDERMA DAILY [facility] Last Admin: 12/05/20 09:01 Dose: 1 patch Documented by: Nicotine (Nicotine 14 Mg Patch.Td24) 14 mg TRANSDERMA DAILY [facility] Last Admin: 12/05/20 09:00 Dose: 14 mg Documented by: Nystatin (Nystatin Oral Susp 500,000 Unit/5 Ml Oral.Susp) 400,000 unit PO QID [facility]; Protocol Last Admin: 12/05/20 13:18 Dose: Not Given Documented by: Ondansetron HCl (Ondansetron Odt 4 Mg Tab.Rapdis) 4 mg TRANSLINGU Q6H PRN PRN Reason: Nausea Last Admin: 12/05/20 09:29 Dose: 4 mg Documented by: Ondansetron HCl (Ondansetron Hcl 4 Mg/2 Ml Vial) 4 mg IVPUSH Q8H PRN PRN Reason: Nausea Oxycodone HCl (Oxycodone Hcl Immed Release 5 Mg Tablet) 20 mg G-TUBE Q3H PRN PRN Reason: Pain (Scale Score 4-6) Last Admin: 12/05/20 09:03 Dose: 20 mg Documented by: Pantoprazole Sodium (Pantoprazole Sodium 40 Mg/10 Ml Vial) 40 mg IVPUSH DAILY@0630 [facility] Last Admin: 12/05/20 06:11 Dose: 40 mg Documented by: Pharmacy Consult (Consult Rx Vancomycin Dosing) 1 each MISCELLANE DAILY PRN PRN Reason: Consult order Polyethylene Glycol (Polyethylene Glycol 3350 17 Gm Powd.Pack) 17 gm G-TUBE Q2D@0900 [facility] Senna (Senna [place] Extract Oral Syrup 15 Ml Syrup) 15 ml G-TUBE BEDTIME PRN PRN Reason: Constipation Thiamine HCl (Thiamine Hcl 100 Mg Tablet) 100 mg G-TUBE DAILY [facility] Last Admin: 12/05/20 11:10 Dose: Not Given Documented by: Trazodone HCl (Trazodone Hcl 50 Mg Tablet) 50 mg G-TUBE BEDTIME PRN PRN Reason: Sleep Vitamin D (Cholecalciferol (Vitamin D3) 25 Mcg Tablet) 25 mcg G-TUBE DAILY [facility] Last Admin: 12/05/20 11:10 Dose: Not Given Documented by: Zinc Sulfate (Zinc Sulfate 220 Mg Capsule) 220 mg G-TUBE DAILY [facility] Last Admin: 12/05/20 09:00 Dose: 220 mg Documented by: Home Medications Medication Instructions Recorded Confirmed Last Taken Type acetaminophen 500 mg/15 mL oral 650 mg FEEDING TUBE Q4H PRN 12/04/20 12/04/20 12/04/20 History liquid (Pain Relief Adult) albuterol sulfate 90 mcg/actuation 2 puff INHALATION Q6H 12/04/20 12/04/20 12/04/20 History aerosol inhaler baclofen 10 mg tablet 5 mg FEEDING TUBE Q8H 12/04/20 12/04/20 12/04/20 History cholecalciferol (vitamin D3) 25 1,000 unit FEEDING TUBE DAILY 12/04/20 12/04/20 12/04/20 History mcg (1,000 unit) tablet diazepam 5 mg/5 mL (1 mg/mL) oral 4 mg FEEDING TUBE Q6H PRN 12/04/20 12/06/20 12/04/20 History solution docusate sodium 50 mg/5 mL oral 100 mg FEEDING TUBE BID 12/04/20 12/04/20 Unknown History liquid (Silace) enoxaparin 40 mg/0.4 mL 40 mg SUBCUT DAILY 12/04/20 12/04/20 12/04/20 History subcutaneous syringe fentanyl 100 mcg/hr transdermal 1 patch TOPICAL Q3D 12/04/20 12/04/20 12/02/20 History patch gabapentin 250 mg/5 mL oral 600 mg FEEDING TUBE Q8H 12/04/20 12/04/20 12/04/20 History solution lidocaine 5 % topical patch 1 patch TOPICAL DAILY 12/04/20 12/04/20 12/04/20 History nicotine 14 mg/24 hr daily 1 patch TOPICAL DAILY 12/04/20 12/04/20 12/04/20 History transdermal patch ondansetron HCl 4 mg tablet 4 mg FEEDING TUBE Q6H PRN 12/04/20 12/04/20 12/04/20 History oxycodone 5 mg/5 mL oral solution 20 mg FEEDING TUBE Q3H PRN 12/04/20 12/04/20 12/04/20 History polyethylene glycol 3350 17 17 g FEEDING TUBE Q2D 12/04/20 12/04/20 12/04/20 History gram/dose oral powder sennosides 8.8 mg/5 mL oral syrup 5 - 10 ml FEEDING TUBE BEDTIME PRN 12/04/20 12/04/20 12/04/20 History (senna) thiamine mononitrate (vit B1) 100 100 mg FEEDING TUBE DAILY 12/04/20 12/04/20 12/04/20 History mg tablet (Vitamin B-1 (mononitrate)) trazodone 50 mg tablet 1 tab FEEDING TUBE BEDTIME PRN 12/04/20 12/04/20 Unknown History zinc sulfate 50 mg zinc (220 mg) 220 mg FEEDING TUBE DAILY 12/04/20 12/04/20 12/04/20 History capsule bupropion HCl 100 mg tablet mg PO 12/26/20 Unknown History famotidine 20 mg tablet 20 mg PO BID 12/26/20 Unknown History fluconazole 40 mg/mL oral mg PO 12/26/20 Unknown History suspension Physical Exam Vital Signs: Vital Signs: Last Vital Signs Temp 95.8 F L 12/05/20 07:53 Pulse 3 L 12/05/20 13:00 Resp 18 12/05/20 13:00 BP 158/89 H 12/05/20 13:00 Pulse Ox 100 12/05/20 13:00 Oxygen Flow Rate 21 12/04/20 20:22 Body Mass Index 30.4 Const: General: cooperative, healthy appearing, comfortable and no acute distress Nutritional Appearance: well nourished Orientation/consciousness: oriented to person, oriented to place, oriented to time and patient oriented x3 Limitations: other limitations (ALS, communicates with computer device) HENMT: Head: Yes normal to inspection, Yes normocephalic and Yes atraumatic Mouth: Normal oral and palatal mucosa present Eyes: Visual Hawk: normal visual hawk by confrontation Alignment and Position: alignment normal Periorbital: periorbital findings normal Conjunctivae: conjunctivae normal Sclerae: sclerae normal Pupils: Pupil accommodation reflex normal EOM: EOMs intact bilaterally Neck: Neck: Yes normal visual inspection, Yes full ROM, Yes no lymphadenopathy, Yes trachea midline, Yes supple, No lymphadenopathy, No tender, No tracheal deviation and Yes tracheostomy present Lymphatic: no lymphadenopathy noted Chest: Chest palpation & inspection: normal inspection of the chest and no crepitus Resp: Other: Lungs CTA with fine crackles to bilat bases. Tracheostomy in place. Patient on ventilator. Chest expansion is symmetrical. No SQ air palpated Effort & Inspection: normal respiratory effort, able to speak in complete sentences, normal respiratory pattern, no audible wheezes, no cough, no pursed lip breathing, no respiratory distress, no stridor, not tachypneic and no tracheal deviation Auscultation: clear to auscultation bilaterally Cardio: Jugular venous distension: no JVD Palpation: normal PMI Rate: regular rate Rhythm: regular rhythm Heart sounds: S1 normal heart sound present, S2 normal heart sound present, no click, no gallops, no murmurs and no rubs GI: Inspection: Yes normal to inspection Auscultation: normal bowel sounds : General: Yes no CVA tenderness Back/Spine/Pelvis: Back: no CVA tenderness Thoracic/Lumbar Spine: thoracic and lumbar spine normal to inspection Skin: General skin exam: no rashes or lesions noted and dry skin Lesions: no lesions Rashes: no rashes Neuro: General: oriented to person, oriented to place, oriented to time and patient oriented x3 Extrem: General: Yes capillary refill normal and Yes no clubbing, cyanosis or edema Psych: Appearance: grossly normal and well kempt Mental Status: mental status grossly normal Speech and movement: Normal speech and movement present and Clear speech present Affect: normal affect Attitude: cooperative Thought process: Normal thought process present Thought content: Normal thought content present Results Labs Result diagrams: 12/11/20 05:09 12/11/20 05:09 Labs: Abnormal lab results 12/04/20 12/04/20 12/05/20 Range/Units 18:18 18:18 05:23 WBC 11.2 H 12.8 H (4.8-10.8) X10*3/uL RBC 4.14 L 3.99 L (4.60-5.80) X10*6/uL Hgb 12.3 L 12.0 L (14.0-18.0) g/dl Hct 37.6 L 36.9 L (42-52) % MPV 9.2 L 9.1 L (9.4-12.4) fL Neut % (Auto) 79.9 H 82.5 H (45-73) % Lymph % (Auto) 14.5 L 11.5 L (20-40) % Abs Immat Gran (auto) 0.05 H (0.00-0.03) X10*3/uL Absolute Neuts (auto) 9.0 H 10.5 H (2.0-8.3) X10*3/uL VBG HCO3 (22-26) mmol/L Creatinine 0.47 L (0.5-1.4) mg/dL POC Glucose (60-115) mg/dL Phosphorus (2.7-4.5) mg/dL 12/05/20 12/05/20 12/05/20 Range/Units 05:23 05:23 09:30 WBC (4.8-10.8) X10*3/uL RBC (4.60-5.80) X10*6/uL Hgb (14.0-18.0) g/dl Hct (42-52) % MPV (9.4-12.4) fL Neut % (Auto) (45-73) % Lymph % (Auto) (20-40) % Abs Immat Gran (auto) (0.00-0.03) X10*3/uL Absolute Neuts (auto) (2.0-8.3) X10*3/uL VBG HCO3 21 L (22-26) mmol/L Creatinine 0.48 L (0.5-1.4) mg/dL POC Glucose 139 H (60-115) mg/dL Phosphorus 6.5 H (2.7-4.5) mg/dL Short CBC 12/04/20 12/05/20 Range/Units 18:18 05:23 WBC 11.2 H 12.8 H (4.8-10.8) X10*3/uL Hgb 12.3 L 12.0 L (14.0-18.0) g/dl Hct 37.6 L 36.9 L (42-52) % Plt Count 285 296 (160-400) X10*3/uL BMP 12/04/20 12/05/20 18:18 05:23 Sodium 138 140 Potassium 4.2 4.4 Chloride 104 106 Carbon Dioxide 22 24 BUN 13 13 Creatinine 0.47 L 0.48 L Calcium 9.4 9.2 Liver Function 12/04/20 Range/Units 18:18 Total Bilirubin 0.4 (0.0-1.0) mg/dL Direct Bilirubin 0.2 (0.0-0.5) mg/dL AST 12 (5-37) U/L ALT 16 (0-40) U/L Alkaline Phosphatase 105 (39-117) U/L Albumin 4.1 (3.5-5.0) g/dL Urine 12/05/20 Range/Units 03:38 Urine Color YELLOW Urine Appearance HAZY Urine pH 6.0 (5.0-8.0) Ur Specific [place] 1.010 (1.005-1.025) Urine Protein NEG (NEG-TRACE) MG/DL Urine Glucose (UA) NEG (NEG) MG/DL All other labs normal. Imaging Chest x-ray: report reviewed and image reviewed CT scan - chest: report reviewed and image reviewed Assessment and Plan (1) Pneumothorax on right: Status: Resolved Patient is a 34 y.o. male with a PMH of SOD1 ALS who [facility] failure with hypoxia who was found to have a small right pneumothorax. Right pneumothorax: 1st occurence of small right apical PTX noted on CXR and chest CT scan. Too small for bedside tube and remains stable at this time. Pneumothorax likely related to increased intrathoracic pressure during manual ambu-bagging of patient prior to arrival to ER If right pneumothorax increases, would recommend IR pigtail chest tube placement. Recommend repeating CXR in am. If stable, no plan for intervention. Spoke with Dr. Jarrett and he is in agreement. Cough, deep breathe, supplemental O2 Tracheostomy suctioning Multiple pulmonary nodules found on CT: Unsure of etiology at this time but would recommend a short-term chest CT scan in 3 months to assess resolution. Likely inflammatory in nature. Patient may follow-up with pulmonary in the outpatient setting seeing as he is already followed by Dr. Perez to discuss findings of chest CT scan Case discussed with Dr. Luong. Thank you for this consult. Procedures Date of Service Date of Service: 12/05/20
--- NOTE | 2020-12-05 14:39 | MHC.CM.PN ---
Addendum entered by Debi Carey 12/05/20 14:45: HCP scanned into EMR Original Note: Pt with ALS in ICU with respiratory distress/ recurrent PNA. Pt has a trach collar and a home vent. Pt sleeping during CM visit: information obtained from pt's family: austin Cooper and review of EMR and discussions with care team. Pt resides at home with 24/7 family care. [facility] however, according to Allison, service has not yet started d/t 'staffing and training issues'. Pt has all adaptive equipment and uses a sight board to communicate. He requires ALS transport d/t need for trach care. Family is interested in having [facility] services [facility] - broad referrals agreed upon with family knowing barriers to [facility]: staffing, trach training, payor contracts. CM to follow
[2020-12-05] MEDS: fentaNYL citrate/PF 100 MCG/2 ML VIAL IVPUSH (14:45)
[2020-12-05] MEDS: ondansetron HCL 4 MG/2 ML VIAL IVPUSH ×3 (15:00→20:34)
--- NOTE | 2020-12-05 15:05 | PM.CCPN ---
Subjective Subjective Date of Service: 12/05/20 Interval History: Mr. Valencia is a 34 yo M with ALS and chronic respiratory failure who was admitted to the ICU last night because of tracheostomy problems and ventilatory failure. The patient is followed by Dr. Christensen in the ALS Clinic at [facility].? He was diagnosed in October 2019. 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 Finally, a tracheostomy and PEG were placed 10/01/20 at [facility].? Following that, he went to rehab for about a week, got transferred back to [facility] with pneumonia a week later, was in the ICU at [facility] for another 2 weeks, then went back to rehab for about another week, then went home, to be followed by Dr. Perez from [facility].? He?s been home for about the last 3 weeks. The patient lives in a house with his fiancee.? He has additional outstanding family support from his sister, parents, and hoist cylinder loader.? He is ventilated at home on the following settings:? AC 20, Vt 410cc, PEEP 8cm, insp time 1.3 sec. ?They do not have oxygen at home at this time, although they have a prescription for it that is pending.? The patient has a low volume TTS trach cuff that is water filled. Patient speaks via an eye gaze computer and is very well informed of his care and is able to answer all questions appropriately.? He is on a multitude of medications at home including lovenox, scheduled meds of oxycodone, hydromorphone, gabapentin and diazepam as well as atrovent and albuterol. The patient was BIBA last night bec his ventilator was signaling high peak pressures, up to low 40's for 90 minutes at a time.? After irrigating several times, the peak pressures went down but eventually they came back up again. They tried their second ventilator and had the same problems, so they were forced to bag the patient until they got him to the emergency room. ?Over the past week they were also having trouble passing the suction catheter.? The patient himself noted that he feelt like there was a ?rock in his throat .? The patient has had no fevers, increased secretions, vomiting or change in bladder or bowels.? Patient is currently being treated with nystatin for oral thrush, family has been applying it to his tongue and suctioning it. In the ED, the patient was afebrile, with Sat 96% on room air.? He was comfortable.? He was ventilated in the ED with normal pressures.? The suction catheter was only able to be passed about 10?.? Labs in the ED revealed a slightly elevated WBC at 11.2.? Chemistries were unremarkable.? Chest x-ray showed prominent interstitial markings and somewhat hazy opacities in lung bases.? The x-ray also shows a small apical pneumothorax on the right, which the radiologist missed, and which was noted on the subsequent CT scan.? The CT scan also shows a right basilar pneumonia, and also some minor infiltrate in the left base. Patient was admitted to the ICU and ventilated overnight on room air with sats running mostly in the high 90s.? Because of the CT scan and white count, he was started on empiric Vanco and Zosyn. This morning, the patient is completely awake and able to communicate via his eye gaze computer.? He has been a bit diaphoretic and has been complaining of nausea, which he has frequently, but responds readily to Zofran.? On AC 20/400/24%/+8, his? RR is 20, Ve 8L, PIP 16-20, ETCO2 56, Sat 97%.? VBG this morning showed 7.37/37/-2.? HR 89, SR.? BP 158/89.? No JVD at 20-30?.? Chest is CTA w normal exp phase.? RRR, normal-sounding S1 and S2, with no murmur or gallops.? The abdomen is flat and benign.? When we suctioned his PEG tube, we got out 800 cc primarily tube feed.? No edema. I watched Dr. Perez do bronchoscopy.? The lumen of the trach tube was narrowed by secretions.? Otherwise, there was mild tracheobronchitis but no sign of severe pneumonia. Tracheobronchial anatomy was normal. LABORATORY DATA:? As below.? Chemistries are unremarkable, other than phosphorus of 6.5. MICROBIOLOGY:? Sputum Gram stain from early this morning showed 4+ polys with 2+ Gram-negative rods and 1+ yeast. IMPRESSION:? 34 yo young man with ALS. 1. ALS 2. Trach tube occluded by inspisated secretions.? We?ll change to a 7.0 or 8.0 Portex DIC. 3. RLL pneumonia.? Last time he was at [facility] in early October, he grew Pseudomonas out of a respiratory culture that had intermediate resistance to Zosyn, and apparent sensitivity to cefepime.? We will discontinue the Vanco and Zosyn and put him on cefepime. ?We?re trying to get the exact sensitivity pattern from [facility]. 4. High residuals.? CT does not show a gastric dil.? We?ll give him one dose of Reglan, see how he does. ADDENDUM at 14:50:? I assisted Dr. Perez in changing the trach tube to a Portex DIC 8.0 trach.? Post-procedure CXR shows good positioning.? The right-sided apical pneumothorax is still there, same size as it was this morning.? I changed his vent setting to AC 20/400/22%/+6. Critical care time (including extensive review of [facility] records and mult extended d/w family): ?2+ hrs. Critical Care Time (minutes): 120 Physical Exam Vital Signs: Vital Signs: Last Vital Signs Temp 95.8 F L 12/05/20 07:53 Pulse 86 12/05/20 14:00 Resp 20 12/05/20 14:00 BP 159/92 H 12/05/20 14:00 Pulse Ox 95 12/05/20 14:00 Oxygen Flow Rate 21 12/04/20 20:22 Body Mass Index 30.4 Objective Data Labs CBC & Chem 7: 12/05/20 05:23 12/05/20 05:23 Labs: Laboratory Results - last 24 hr 12/04/20 12/04/20 12/04/20 18:18 18:18 18:18 WBC 11.2 H RBC 4.14 L Hgb 12.3 L Hct 37.6 L MCV 90.8 MCH 29.7 MCHC 32.7 RDW 13.5 Plt Count 285 MPV 9.2 L Immature Gran % (Auto) 0.2 Neut % (Auto) 79.9 H Lymph % (Auto) 14.5 L [place] % (Auto) 3.6 Eos % (Auto) 1.4 Baso % (Auto) 0.4 Lymph # (Auto) 1.6 [place] # (Auto) 0.4 Eos # (Auto) 0.2 Baso # (Auto) 0.0 Abs Immat Gran (auto) 0.02 Absolute Neuts (auto) 9.0 H Absolute Nucleated RBC 0.000 Nucleated RBC % (auto) 0.0 VBG pH VBG pCO2 VBG pO2 VBG HCO3 VBG O2 Saturation VBG Base Excess Sodium 138 Potassium 4.2 Chloride 104 Carbon Dioxide 22 Anion Gap 16 BUN 13 Creatinine 0.47 L Estim Creat Clear Calc 244.5 Estimated GFR > 60 POC Glucose Random Glucose 99 Lactic Acid Calcium 9.4 Phosphorus Magnesium Total Bilirubin 0.4 Direct Bilirubin 0.2 AST 12 ALT 16 Alkaline Phosphatase 105 Troponin I High Sens Total Protein 6.9 Albumin 4.1 Procalcitonin Urine Color Urine Appearance Urine pH Ur Specific [place] Urine Protein Urine Glucose (UA) Urine Ketones Urine Blood Urine Nitrite Ur Leukocyte Esterase COVID-19 ([facility]) Negative COVID-19 Clin Com See Note 12/04/20 12/05/20 12/05/20 18:18 03:38 05:23 WBC 12.8 H RBC 3.99 L Hgb 12.0 L Hct 36.9 L MCV 92.5 MCH 30.1 MCHC 32.5 RDW 13.4 Plt Count 296 MPV 9.1 L Immature Gran % (Auto) 0.4 Neut % (Auto) 82.5 H Lymph % (Auto) 11.5 L [place] % (Auto) 4.0 Eos % (Auto) 1.1 Baso % (Auto) 0.5 Lymph # (Auto) 1.5 [place] # (Auto) 0.5 Eos # (Auto) 0.1 Baso # (Auto) 0.1 Abs Immat Gran (auto) 0.05 H Absolute Neuts (auto) 10.5 H Absolute Nucleated RBC 0.000 Nucleated RBC % (auto) 0.0 VBG pH VBG pCO2 VBG pO2 VBG HCO3 VBG O2 Saturation VBG Base Excess Sodium Potassium Chloride Carbon Dioxide Anion Gap BUN Creatinine Estim Creat Clear Calc Estimated GFR POC Glucose Random Glucose Lactic Acid 1.4 Calcium Phosphorus Magnesium Total Bilirubin Direct Bilirubin AST ALT Alkaline Phosphatase Troponin I High Sens Total Protein Albumin Procalcitonin Urine Color YELLOW Urine Appearance HAZY Urine pH 6.0 Ur Specific [place] 1.010 Urine Protein NEG Urine Glucose (UA) NEG Urine Ketones NEG Urine Blood NEG Urine Nitrite NEG Ur Leukocyte Esterase NEG COVID-19 ([facility]) COVID-19 Clin Com 12/05/20 12/05/20 12/05/20 05:23 05:23 05:23 WBC RBC Hgb Hct MCV MCH MCHC RDW Plt Count MPV Immature Gran % (Auto) Neut % (Auto) Lymph % (Auto) [place] % (Auto) Eos % (Auto) Baso % (Auto) Lymph # (Auto) [place] # (Auto) Eos # (Auto) Baso # (Auto) Abs Immat Gran (auto) Absolute Neuts (auto) Absolute Nucleated RBC Nucleated RBC % (auto) VBG pH VBG pCO2 VBG pO2 VBG HCO3 VBG O2 Saturation VBG Base Excess Sodium 140 Potassium 4.4 Chloride 106 Carbon Dioxide 24 Anion Gap 14 BUN 13 Creatinine 0.48 L Estim Creat Clear Calc 239.4 Estimated GFR > 60 POC Glucose Random Glucose 108 Lactic Acid Calcium 9.2 Phosphorus 6.5 H Magnesium 2.1 Total Bilirubin Direct Bilirubin AST ALT Alkaline Phosphatase Troponin I High Sens 3.7 Total Protein Albumin Procalcitonin 0.03 Urine Color Urine Appearance Urine pH Ur Specific [place] Urine Protein Urine Glucose (UA) Urine Ketones Urine Blood Urine Nitrite Ur Leukocyte Esterase COVID-19 ([facility]) COVID-19 Clin Com 12/05/20 12/05/20 05:23 09:30 WBC RBC Hgb Hct MCV MCH MCHC RDW Plt Count MPV Immature Gran % (Auto) Neut % (Auto) Lymph % (Auto) [place] % (Auto) Eos % (Auto) Baso % (Auto) Lymph # (Auto) [place] # (Auto) Eos # (Auto) Baso # (Auto) Abs Immat Gran (auto) Absolute Neuts (auto) Absolute Nucleated RBC Nucleated RBC % (auto) VBG pH 7.37 VBG pCO2 37 VBG pO2 88 VBG HCO3 21 L VBG O2 Saturation 96.0 VBG Base Excess -2.8 Sodium Potassium Chloride Carbon Dioxide Anion Gap BUN Creatinine Estim Creat Clear Calc Estimated GFR POC Glucose 139 H Random Glucose Lactic Acid Calcium Phosphorus Magnesium Total Bilirubin Direct Bilirubin AST ALT Alkaline Phosphatase Troponin I High Sens Total Protein Albumin Procalcitonin Urine Color Urine Appearance Urine pH Ur Specific [place] Urine Protein Urine Glucose (UA) Urine Ketones Urine Blood Urine Nitrite Ur Leukocyte Esterase COVID-19 ([facility]) COVID-19 Clin Com Microbiology Microbiology Results: Microbiology 12/05/20 00:59 Sputum - Suctioned Gram Stain - Final Quality Stroke Does the patient have a stroke diagnosis?: No VTE Prior VTE?: No VTE Risk Level:: Medical - low VTE Device Contraindication: Treatment Not Indicated VTE Drug Contraindication: Treatment Not Indicated Critical Care Time Critical Care Time (minutes): 120
[2020-12-05] MEDS: lisinopriL 5 MG TABLET G-TUBE (15:15)
--- NOTE | 2020-12-05 15:20 | PC.RT ---
12/05/20 trach changed at bedside to 8.0 Portex DIC
--- NOTE | 2020-12-05 16:36 | P.CONPL_ITS ---
History of Present Illness History of Present Illness Consult date: 12/05/20 Chief complaint: Hypoxic resp failure Narrative: I SAW THIS 34 YEARS OLD MALE , THIS MORNING IN THE INTENSIVE CARE UNIT. HE IS ADMITTED SINCE LAST NIGHT, WITH THE HER RESPIRATORY DISTRESS , HIGH PEAK PRESSURE NOTED IN THE RESPIRATORY SYSTEM. AND HYPOXEMIA REQUIRING OXYGEN SUPPLEMENTATION. THE HISTORY IS QUITE SAD, THIS THE YOUNG MALE WAS DIAGNOSED TO HAVE ACUTE IS AMYOTROPHIC LATERAL SCLEROSIS, AFFECTING HIS RESPIRATORY MUSCLE, DIAGNOSED 1ST TIME IN 2019. HE HAD BEEN STARTED ON NON VENTILATORY SUPPORT AT NIGHT WITH BIPAP. IN SEPTEMBER 2020 PATIENT REQUIRED TRACHEOSTOMY AND GASTRIC TUBE PLACEMENT, WHICH WAS DONE AT [facility]. FOR HIS SEVERE VENTILATORY FAILURE HE WAS STARTED ON VENTILATOR WITH THE TIDAL VOLUME 410, RESPIRATORY RATE 20, PEEP OF 8 CM HE WAS NOT REQUIRING OXYGEN. HE SPENT SEVERAL WEEKS AT A REHAB FACILITY AND THEN WAS DISCHARGED HOME, HIS FAMILY TAKING CARE OF THE RESPIRATOR WELL SUCTIONING, WITH THE HELP OF JOB CHANGE CREW MEMBER. AND HE SHE IS ALSO ON GASTRIC FEEDINGS THROUGH THE TUBE. HAS HISTORY DAY THE FAMILY NOTED THAT HIS PEAK PRESSURE SCOTT QUITE FREQUENTLY TO 40-90 CM SUCTIONING BECAME DIFFICULT, AND A BLOCKAGE WAS FELT TO BELOW THE TRACH TUBE . THE PATIENT FELT LIKE A BALL IN HIS THROAT. HE DID NOT HAVE FEVER OR CHILLS, OR ANY CHEST PAIN. Review of Systems Review of Systems: Yes Unobtainable due to mental condition PMFSH Past Medical History Medical History (Updated 12/05/20 @ 16:48 by Kristen Cunha MD) ALS (amyotrophic lateral sclerosis) Mucus plugging of bronchi Tracheostomy care Functional capacity: bed bound Social History Social History Currently Displaying Signs/Symptoms of Drug Intoxication Withdrawal: No Advance Directives: Yes Advance Directives on File: Yes Advance Directives Date on File: 12/04/20 Do you have thoughts of harming others: None Do you have a plan to hurt others: No Plan service: No Current occupational status: previously employed Meds Allergies Allergy/AdvReac Type Severity Reaction Status Date / Time succinylcholine Allergy Unknown Verified 12/04/20 17:26 Active Medications: Current Medications Acetaminophen (Acetaminophen Oral Liquid 650 Mg/20.3 Ml Solution) 650 mg G-TUBE Q4H PRN PRN Reason: Pain (Scale Score 1-3) Last Admin: 12/05/20 13:32 Dose: 650 mg Documented by: Albuterol/Ipratropium (Albuterol/Iprat 2.5/0.5mg 3 Ml Ampul.Neb) 3 ml INHALE RQ6H [facility] Last Admin: 12/05/20 11:11 Dose: 3 ml Documented by: Baclofen (Baclofen 10 Mg Tablet) 5 mg G-TUBE TID [facility] Last Admin: 12/05/20 14:08 Dose: 5 mg Documented by: Diazepam (Diazepam 5 Mg Tablet) 2.5 mg G-TUBE Q6H PRN PRN Reason: Muscle Spasm Last Admin: 12/05/20 01:04 Dose: 2.5 mg Documented by: Docusate Sodium (Docusate Sodium 100 Mg/10 Ml Liquid) 100 mg G-TUBE BID [facility] Last Admin: 12/05/20 08:59 Dose: 100 mg Documented by: Enoxaparin Sodium (Enoxaparin Sodium 40 Mg/0.4 Ml Syringe) 40 mg SUBCUT DAILY [facility] Last Admin: 12/05/20 09:02 Dose: 40 mg Documented by: Fentanyl (Fentanyl 100 Mcg Patch.Td72) 100 mcg TRANSDERMA Q3D [facility] Last Admin: 12/05/20 09:53 Dose: 100 mcg Documented by: Gabapentin (Gabapentin 600 Mg Tablet) 600 mg G-TUBE TID [facility] Last Admin: 12/05/20 14:10 Dose: 600 mg Documented by: Hydromorphone HCl (Hydromorphone Hcl 2 Mg Tablet) 2 mg G-TUBE Q3H PRN PRN Reason: Pain (Scale Score 4-6) Last Admin: 12/05/20 14:25 Dose: 2 mg Documented by: Cefepime HCl 2 gm/ Sodium (Chloride) 50 mls @ 100 mls/hr IV Q8H [facility] Last Infusion: 12/05/20 14:11 Dose: Infused Documented by: Lidocaine (Lidocaine 4 % Patch Adh..Patch) 1 patch TRANSDERMA DAILY [facility] Last Admin: 12/05/20 09:01 Dose: 1 patch Documented by: Nicotine (Nicotine 14 Mg Patch.Td24) 14 mg TRANSDERMA DAILY [facility] Last Admin: 12/05/20 09:00 Dose: 14 mg Documented by: Nystatin (Nystatin Oral Susp 500,000 Unit/5 Ml Oral.Susp) 400,000 unit PO QID [facility]; Protocol Last Admin: 12/05/20 15:05 Dose: Not Given Documented by: Ondansetron HCl (Ondansetron Odt 4 Mg Tab.Rapdis) 4 mg TRANSLINGU Q6H PRN PRN Reason: Nausea Last Admin: 12/05/20 09:29 Dose: 4 mg Documented by: Ondansetron HCl (Ondansetron Hcl 4 Mg/2 Ml Vial) 4 mg IVPUSH Q8H PRN PRN Reason: Nausea Oxycodone HCl (Oxycodone Hcl Immed Release 5 Mg Tablet) 20 mg G-TUBE Q3H PRN PRN Reason: Pain (Scale Score 4-6) Last Admin: 12/05/20 14:24 Dose: 20 mg Documented by: Pantoprazole Sodium (Pantoprazole Sodium 40 Mg/10 Ml Vial) 40 mg IVPUSH DAILY@0630 [facility] Last Admin: 12/05/20 06:11 Dose: 40 mg Documented by: Pharmacy Consult (Consult Rx Vancomycin Dosing) 1 each MISCELLANE DAILY PRN PRN Reason: Consult order Polyethylene Glycol (Polyethylene Glycol 3350 17 Gm Powd.Pack) 17 gm G-TUBE Q2D@0900 [facility] Senna (Senna [place] Extract Oral Syrup 15 Ml Syrup) 15 ml G-TUBE BEDTIME PRN PRN Reason: Constipation Thiamine HCl (Thiamine Hcl 100 Mg Tablet) 100 mg G-TUBE DAILY [facility] Last Admin: 12/05/20 11:10 Dose: Not Given Documented by: Trazodone HCl (Trazodone Hcl 50 Mg Tablet) 50 mg G-TUBE BEDTIME PRN PRN Reason: Sleep Vitamin D (Cholecalciferol (Vitamin D3) 25 Mcg Tablet) 25 mcg G-TUBE DAILY [facility] Last Admin: 12/05/20 11:10 Dose: Not Given Documented by: Zinc Sulfate (Zinc Sulfate 220 Mg Capsule) 220 mg G-TUBE DAILY [facility] Last Admin: 12/05/20 09:00 Dose: 220 mg Documented by: Home Medications Medication Instructions Recorded Confirmed Last Taken Type acetaminophen 500 mg/15 mL oral 650 mg FEEDING TUBE Q4H PRN 12/04/20 12/04/20 12/04/20 History liquid (Pain Relief Adult) albuterol sulfate 90 mcg/actuation 2 puff INHALATION Q6H 12/04/20 12/04/20 12/04/20 History aerosol inhaler baclofen 10 mg tablet 5 mg FEEDING TUBE Q8H 12/04/20 12/04/20 12/04/20 History cholecalciferol (vitamin D3) 25 1,000 unit FEEDING TUBE DAILY 12/04/20 12/04/20 12/04/20 History mcg (1,000 unit) tablet diazepam 5 mg/5 mL (1 mg/mL) oral 2.5 mg FEEDING TUBE Q6H PRN 12/04/20 12/04/20 12/04/20 History solution docusate sodium 50 mg/5 mL oral 100 mg FEEDING TUBE BID 12/04/20 12/04/20 Unknown History liquid (Silace) enoxaparin 40 mg/0.4 mL 40 mg SUBCUT DAILY 12/04/20 12/04/20 12/04/20 History subcutaneous syringe fentanyl 100 mcg/hr transdermal 1 patch TOPICAL Q3D 12/04/20 12/04/20 12/02/20 History patch gabapentin 250 mg/5 mL oral 600 mg FEEDING TUBE Q8H 12/04/20 12/04/20 12/04/20 History solution hydromorphone 1 mg/mL oral liquid 1.5 ml FEEDING TUBE Q3H PRN 12/04/20 12/04/20 12/04/20 History ipratropium bromide 17 2 puff INHALATION Q6H 12/04/20 12/04/20 12/04/20 History mcg/actuation HFA aerosol inhaler (Atrovent HFA) lidocaine 5 % topical patch 1 patch TOPICAL DAILY 12/04/20 12/04/20 12/04/20 History nicotine 14 mg/24 hr daily 1 patch TOPICAL DAILY 12/04/20 12/04/20 12/04/20 History transdermal patch nystatin 100,000 unit/mL oral 4 ml PO QID 12/04/20 12/04/20 12/04/20 History suspension ondansetron HCl 4 mg tablet 4 mg FEEDING TUBE Q6H PRN 12/04/20 12/04/20 12/04/20 History oxycodone 5 mg/5 mL oral solution 20 mg FEEDING TUBE Q3H PRN 12/04/20 12/04/20 12/04/20 History pantoprazole 40 mg tablet,delayed 1 tab PO DAILY 12/04/20 12/04/20 Unknown History release polyethylene glycol 3350 17 17 g FEEDING TUBE Q2D 12/04/20 12/04/20 12/04/20 History gram/dose oral powder sennosides 8.8 mg/5 mL oral syrup 5 - 10 ml FEEDING TUBE BEDTIME PRN 12/04/20 12/04/20 12/04/20 History (senna) thiamine mononitrate (vit B1) 100 100 mg FEEDING TUBE DAILY 12/04/20 12/04/20 12/04/20 History mg tablet (Vitamin B-1 (mononitrate)) trazodone 50 mg tablet 1 tab FEEDING TUBE BEDTIME PRN 12/04/20 12/04/20 Unknown History zinc sulfate 50 mg zinc (220 mg) 220 mg FEEDING TUBE DAILY 12/04/20 12/04/20 12/04/20 History capsule Physical Exam Vital Signs: Vital Signs: Last Vital Signs Temp 98.8 F 12/05/20 16:00 Pulse 99 12/05/20 16:00 Resp 16 12/05/20 16:00 BP 156/93 H 12/05/20 16:00 Pulse Ox 96 12/05/20 16:00 Oxygen Flow Rate 21 12/04/20 20:22 Body Mass Index 30.4 Const: Other: PATIENT IS NONCOMMUNICATIVE, AT THE TIME OF MY EXAM DOES NOT SEEM TO BE IN ACUTE DISTRESS. HENMT: Other: NOT EXAMINABLE Eyes: General: appearance normal, both eyes and all related structures Neck: Other: TRACH TUBE IN PLACE Chest: Chest palpation & inspection: normal inspection of the chest, normal palpation of entire chest wall and no tenderness Resp: Other: PERCUSSION NOTE IS RESONANT. BREATH SOUNDS DECREASED OVER THE LOWER LOBES. A FEW INSPIRATORY CRACKLES ARE HEARD OVER BOTH BASES Cardio: Rhythm: regular rhythm Heart sounds: no gallops and no murmurs GI: Other: G-TUBE IN PLACE Back/Spine/Pelvis: Other: COULD NOT EXAMINE Skin: General skin exam: no rashes or lesions noted Results Laboratory Findings CBC and BMP: 12/05/20 05:23 12/05/20 05:23 Abnormal lab findings: Abnormal Labs 12/04/20 12/04/20 12/05/20 18:18 18:18 05:23 WBC 11.2 H 12.8 H RBC 4.14 L 3.99 L Hgb 12.3 L 12.0 L Hct 37.6 L 36.9 L MPV 9.2 L 9.1 L Neut % (Auto) 79.9 H 82.5 H Lymph % (Auto) 14.5 L 11.5 L Abs Immat Gran (auto) 0.05 H Absolute Neuts (auto) 9.0 H 10.5 H VBG HCO3 Creatinine 0.47 L POC Glucose Phosphorus 12/05/20 12/05/20 12/05/20 05:23 05:23 09:30 WBC RBC Hgb Hct MPV Neut % (Auto) Lymph % (Auto) Abs Immat Gran (auto) Absolute Neuts (auto) VBG HCO3 21 L Creatinine 0.48 L POC Glucose 139 H Phosphorus 6.5 H Microbiology: Microbiology 12/05/20 00:59 Sputum - Suctioned Gram Stain - Final Diagnostic Findings Chest x-ray: report reviewed and image reviewed CT scan - chest: report reviewed and image reviewed Assessment and Plan (1) ALS (amyotrophic lateral sclerosis): Status: Acute (2) Acute on chronic respiratory failure with hypoxia: Status: Acute PATIENT HAS CHRONIC VENTILATORY FAILURE, DUE TO NEUROMUSCULAR DISEASE. BEING MANAGED WITH PERMANENT TRACHEOSTOMY AND A VENTILATOR AT HOME. HAS DEVELOPED ACUTE ON CHRONIC RESPIRATORY FAILURE MAINLY DUE TO MUCUS PLUGGING. (3) Pneumothorax on right: Status: Acute HAS A VERY SMALL PNEUMOTHORAX, MAY BE DUE TO SUDDEN INCREASED INTRATH ORACIC PRESSURE. IT IS NOT SIGNIFICANT ENOUGH AT THIS TIME. EXPECTED TO RESOLVE BY ITSELF. (4) Bilateral pneumonia: Status: Acute CT SCAN OF THE CHEST , SHOWS CONSOLIDATION IN THE RIGHT LOWER LOBE AND ALSO A SMALLER AREA OF CONSOLIDATION IN THE LEFT LOWER LOBE. PATIENT MAY HAVE HAD PULMONARY ASPIRATION, OR MUCOUS RETENTION, CAUSING THE BILATERAL PNEUMONIA. TX ; CONTINUE ON [employer]AGE (5) Bilateral pleural effusion: Status: Acute BILATERAL EFFUSIONS ARE SMALL, SLIGHTLY BIGGER ON THE RIGHT SIDE. WILL NEED TO BE MONITORED. (6) Mucus plugging of bronchi: Status: Acute THIS SEEMS TO BE HIS MAJOR ISSUE AT THIS TIME, I HAVE REQUESTED MY PARTNER DR. CODY TO DO A QUICK BRONCHOSCOPY , AND SUCTIONING NEEDED . Procedures Date of Service Date of Service: 12/05/20
[2020-12-05] MEDS: Dextrose 5 % and Lactated Ring 1,000 ML 250 ML IVCONT (16:45)
[2020-12-05 16:57] LABS: Glucose, Whole Blood 140 mg/dL (60-115)
--- NOTE | 2020-12-05 19:18 | MHC.SHP ---
Pre-Procedural Eval Section A Date of Service: 12/05/20 The patient is an INPATIENT: Yes Section B Chief Complaint: Hypoxic resp failure Allergies: Allergies Allergy/AdvReac Type Severity Reaction Status Date / Time succinylcholine Allergy Unknown Verified 12/04/20 17:26 Plan I have reviewed the history and physical and performed a pertinent physical examination on my patient. No changes have occurred unless specified.
--- NOTE | 2020-12-05 19:19 | PM.OP ---
Brief Operative Note Date of Service: 12/05/20 Pre-op diagnosis: pneumonia Post-op diagnosis: other (occluded tracheostomy, pneumonia) Procedure: bronchoscopy Surgeon: Ladarius Perez MD Anesthesia: local Was an Telephone Clerk [employer] Office used for this Procedure?: No Estimated blood loss (mL): 0 Pathology: none sent Condition: stable Disposition: no change
--- NOTE | 2020-12-05 19:21 | P.EN_ITS ---
Event Note Date of Service: 12/05/20 Event Note: Tracheostomy changed at the bedside. The patient has #8 Portex T TS. This was replaced with a #8 Cuffed Portex DIC at the bedside without any apparent complications. Once it was exchanged it was confirmed with a suction catheter placed into the trachea. the tracheostomy cuff was inflated and maintain good adequate volumes. No apparent complications. Chest x-ray done.
--- NOTE | 2020-12-05 20:18 | PC.NURSE ---
Addendum entered by Justin Whiteside RN 12/05/20 20:28: Patient had frequent episodes of difficulty breathing, which were improved with deep suctioning. Patient with frequent diaphroesis. blood sugar checked POC WNL. Patient requiring constant ice packs over whole body for comfort. Original Note: assumed care from RACHELE Khan; Patient with ALS, total care, communicates through eyegaze, alert and oriented x4. chronic vent requiring some changes, patient with shortness of breath this morning, MD at bedside to brielle. RT at bedside. Patient had bedside bronch, had trach changed to #8 portex with air balloon, well tolerated. Had lidocaine intra-pulmonically during bronch, had 100 mcg IVP fentanyl during trach change, has fentanyl patch to right upper chest, has PRN oxycodone with PRN dilaudid per g-tube often for pain that is difficult to describe by patient even with eyegaze. Patient with 2 large BMs today, still with 850 ccs residual on TF, held TF per MD, x4 hours, got 10 mg IV reglan per MD, reassess at 16:00 with 200 ccs residual, restarted TF at 20 cc per hour with 250 cc Q4 hour for H2O flushes.nausea continues all day, frequent use of zofran/ sl dose ineffective per patient, Md ordered 4 mg q4 hours, pharmacy questioned dose; nursing questioned pharmacy, dose oked per Mariela in pharmacy, nausea continues despite zofran. patient with home TF feeding, and home equipment for TF. Patient family engaged in discussion with nursing regarding using home TF pump and willingness to show nursing staff how to use and to be available at their home number for troubleshooting pump; patient family reluctant to sign agreement, some investigation of our equipment that might facilitate use of their home TF in our equipment. Patient has not yet signed any agreement to that effect, and scroll assembler nursing to follow up, aware of plan and policy.
[2020-12-05] MEDS: Ketorolac Tromethamine 15 MG/ML VIAL IVPUSH (21:24)
[2020-12-06] VITALS (32 sets, daily range): BP systolic 117–159; BP diastolic 50–92; PULSE 89–117; RESP 16–20; TEMP 36.3–37.5; O2SAT 91–100
[2020-12-06] MEDS: oxyCODONE HCl Immed Release 5 MG TABLET 20 MG G-TUBE ×3 (03:05→20:54)
[2020-12-06] MEDS: HYDROmorphone HCl 2 MG TABLET G-TUBE ×4 (03:05→20:53)
[2020-12-06] MEDS: cefEPime HCl 2 GM in 0.9 % Sodium Chloride 50 ML IV ×3 (03:05→20:25)
[2020-12-06] MEDS: Albuterol/Iprat 2.5/0.5MG 3 ML AMPUL.NEB INHALE ×4 (05:05→19:27)
--- NOTE | 2020-12-06 05:47 | PC.NURSE ---
AM labs cancelled per MD Stemp.
[2020-12-06] MEDS: Pantoprazole Sodium 40 MG/10 ML VIAL IVPUSH (06:18)
[2020-12-06] MEDS: Acetaminophen Oral Liquid 650 MG/20.3 ML SOLUTION G-TUBE ×2 (06:20→16:24)
--- NOTE | 2020-12-06 08:58 | MHC.CM.PN ---
Addendum entered by Debi Carey 12/06/20 16:03: Pt has been accepted by [facility] for skilled RN visits with a start date of 12/09. [facility] RN's for service initiation and are waiting on confirmation of start date. They will continue to search for button riveter. Call placed to pt's HCP/sister Tanvir who verbalized concern with no skilled RN services until Wednesday - family would have to be responsible for all care needs as they have been doing. Updated MD on service start dates - he states pt is not feeling well and he may hold a weekend d/c. When pt does d/c, please fax the d/c summary to Monie freed of [facility] at [phone]. The main office number is [phone] and Monie's direct number is [phone]. 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 Call placed to Monie Owens at [facility]. She has accepted the referral and is in the process of finding button riveter. She will contact this administrative underwriter by 3pm today with her findings. Pt has also been tentatively accepted by the [facility]. Per Dmitra, pt's CCM program will pay for multiple agencies or covending to ensure pt has care at home. FINAL INSPECTOR TRUCK TRAILER hours have not been filled at this time. Clinical faxed to Monie at [phone]. Message left with pt's HCP/sister Tanvir at [phone] to update her on progress thus far. CM to follow. MD considering 48 additional hours of IV ATB prior to returning to home. He will consult ID. Original Note: Call placed to pt's sister, Tanvir who states pt was supposed to start VNA service when he was d/c'd from [facility] in October but the agency, [facility], has not been able to begin d/t staffing issues. Family has been providing 24/7 care and are in need of assistance. Pt has Gtube feeds and new trach with vent support if needed. Pt also has [employer] provided through his former employer which expires at the end of this year. He is active with Medicare and Medicaid and has a director of community education through Medicaid, Hua at [phone].
[2020-12-06] MEDS: Baclofen 10 MG TABLET 5 MG G-TUBE ×3 (10:26→20:25)
[2020-12-06] MEDS: Gabapentin 600 MG TABLET G-TUBE ×3 (10:37→20:25)
[2020-12-06] MEDS: Zinc Sulfate 220 MG CAPSULE G-TUBE (10:37)
[2020-12-06] MEDS: Enoxaparin Sodium 40 MG/0.4 ML SYRINGE SUBCUT (10:37)
[2020-12-06] MEDS: Cholecalciferol (Vitamin D3) 25 MCG TABLET G-TUBE (10:37)
[2020-12-06] MEDS: polyethylene glycoL 3350 17 GM POWD.PACK G-TUBE (10:38)
[2020-12-06] MEDS: Lidocaine 4 % Patch ADH..PATCH 1 PATCH TRANSDERMA (10:38)
[2020-12-06] MEDS: Nicotine 14 MG PATCH.TD24 TRANSDERMA (10:38)
[2020-12-06] MEDS: Thiamine HCL 100 MG TABLET G-TUBE (10:39)
--- NOTE | 2020-12-06 10:45 | PM.PNPUL ---
Subjective Subjective Date of Service: 12/06/20 Principal diagnosis: pneumonia/ mucous plugging Interval history: Patient is did improved, post bronchoscopy and, change of tracheostomy, has improved his ventilatory status. Remains afebrile. Doing well on his usual vent settings. Sputum culture has grown Pseudomonas species, sensitivities pending. Objective Data Labs CBC & Chem 7: 12/05/20 05:23 12/05/20 05:23 Labs: Laboratory Results - last 24 hr 12/05/20 16:53 POC Glucose 140 H Microbiology Microbiology Results: Microbiology 12/05/20 00:59 Sputum - Suctioned Gram Stain - Final 12/05/20 00:59 Sputum - Suctioned Sputum Culture - Preliminary Pseudomonas species 12/04/20 18:19 Blood - Venous Blood Culture - Preliminary No growth after 24 hours. 12/04/20 18:19 Blood - Venous Blood Culture - Preliminary No growth after 24 hours. Physical Exam Vital Signs: Vital Signs: Last Vital Signs Temp 97.4 F 12/06/20 08:00 Pulse 94 12/06/20 10:00 Resp 16 12/06/20 10:00 BP 122/62 12/06/20 10:00 Pulse Ox 100 12/06/20 10:00 Oxygen Flow Rate 21 12/04/20 20:22 Body Mass Index 30.4 Const: Other: Fairly comfortable on his current vent setting, or are 16 per minute Neck: Other: Trach tube in place, no infection around the trach stoma. Chest: Chest palpation & inspection: normal inspection of the chest, normal palpation of entire chest wall and no tenderness Resp: Other: Patient does have good aeration on both sides except over the right lower lobe, There are a few inspiratory crepitations over the right lower lobe. Cardio: Rate: regular rate Rhythm: regular rhythm Heart sounds: no gallops and no murmurs GI: Palpation (GI): Soft to palpation, nontender and no masses Procedures Date of Service Date of Service: 12/06/20 Assessment and Plan Assessment and plan (1) Mucus plugging of bronchi: Problem details: Status post bronchoscopy and change of the trach tube, No active mucus plugging at this time. Status: Acute (2) Bilateral pneumonia: Problem details: Radiologically patient has consolidation of the right lower lobe and minimal infiltrate in the left lower lobe Patient has chronic mucus retention, Sputum culture growing Pseudomonas species, this is probably a chronic problem in his case. Recommend treating him with IV cefepime , for a course of 5-7 days. Status: Acute (3) Acute on chronic respiratory failure with hypoxia: Problem details: Patient is the on vent support, 24 hours a day. Doing well on his current vent settings, and will continue to use the vent even at home. Status: Acute (4) ALS (amyotrophic lateral sclerosis): Problem details: Patient is being followed up at [facility] ALS clinic Status: Acute Time Spent With Patient Time: Total time spent is greater than 50% in coordination of care (as documented) at patient's floor/unit and/or counseling patient: Time with patient: 15 - 24 minutes Progress Note: Quality Stroke Does the patient have a stroke diagnosis?: No
[2020-12-06] MEDS: diazePAM 5 MG TABLET 2.5 MG G-TUBE (10:52)
[2020-12-06] MEDS: ondansetron HCL 4 MG/2 ML VIAL IVPUSH ×2 (10:56→16:24)
--- NOTE | 2020-12-06 13:08 | MHC.CLN ---
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 TF IS APPROPRIATE AND PROVIDES ADEQUATE KCALS/PROTEIN AND FREE WATER TO MEET PT'S NEEDS PT HAD SOME HIGH RESIDUALS OVER NIGHT PER NSG BUT TOLERATING NOW PT IS MOVING HIS BOWELS PER NSG PT RECEIVING KATEFARMS 1.4 AT 70ML/HR WITH 250CC FREE WATER FLUSHES Q 4HRS PROVIDES 2352 KCALS (25.9 KCALS/KG BASED ON ABW), 103.4 GRAMS PROTEIN (1.1 G/KG), AND 2709 CC TOTAL FREE WATER FROM FORMULA AND FLUSHES (30 CC/KG) MONITOR TOLERANCE, RESIDUALS, AND LYTES
--- NOTE | 2020-12-06 14:11 | P.PNCC_ITS ---
Subjective Subjective Date of Service: 12/06/20 Interval History: Mr. Valencia is a 34 yo M with ALS and chronic respiratory failure who was admitted to the ICU on Dec 04 because of tracheostomy problems and ventilatory failure. The patient is followed by Dr. Christensen in the ALS Clinic at [facility].? He was diagnosed in October 2019. 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 Finally, a tracheostomy and PEG were placed 10/01/20 at [facility].? Following that, he went to rehab for about a week, got transferred back to [facility] with pneumonia a week later, was in the ICU at [facility] for another 2 weeks, then went back to rehab for about another week, then went home, to be followed by Dr. Perez from [facility] pulmonary.? He?s been home for about the last 3 weeks. The patient lives in a house in [place] with his fiancee.? He has additional outstanding family support from his sister, parents, and manager of business.? He is ventilated at home on the following settings:? AC 20, Vt 410cc, PEEP 8cm, insp time 1.3 sec. ?They do not have oxygen at home at this time, although they have a prescr iption for it that is pending.? The patient had a low volume TTS trach cuff that was water filled. The patient speaks via an eye gaze computer and is very well informed of his care and is able to answer all questions appropriately.? He is on a multitude of medications at home including lovenox, scheduled meds of oxycodone, hydromorphone, gabapentin and diazepam as well as atrovent and albuterol. The patient was BIBA on Dec 04 bec his ventilator was signaling high peak pressures, up to low 40's for 90 minutes at a time.? After irrigating several times, the peak pressures went down but eventually they came back up again. They tried their second ventilator and had the same problems, so they were forced to bag the patient until they got him to the emergency room. ?Over the prior week they were also having trouble passing the suction catheter.? The patient had no fevers, increased secretions, vomiting or change in bladder or bowels. In the ED, the patient was afebrile, with Sat 96% on room air.? He was comfortable.? He was ventilated in the ED with normal pressures.? The suction catheter was only able to be passed about 10?.? Labs in the ED revealed a slightly elevated WBC at 11.2.? Chemistries were unremarkable.? Chest x-ray showed prominent interstitial markings and somewhat hazy opacities in the lung bases.? The CXR also showed a small apical Rt pneumothorax, which the radiologist missed, and which was noted on the subsequent CT scan.? The CT scan also shows a right basilar pneumonia, and also some minor infiltrate in the left base. The patient was admitted to the ICU and ventilated overnight on room air with sats running mostly in the high 90s.? Because of the CT scan and white count, he was started on empiric Vanco and Zosyn. The next day (yesterday), the patient is completely awake and able to communicate via his eye gaze computer.? He was complaining of nausea, responded to Zofran.? Residuals in his Gtube were high, so he was given Relan.? He un derwent bronchoscopy by Dr. juliet sky, which showed inspissated secretions lining his tracheostomy tube.? Otherwise, there was mild tracheobronchitis, but no sign of severe pneumonia, and no tracheaobronchial anatomic abnormalities. ?The trach tube was changed to a Portex DIC size 8.0 trach tube without incident.? Subsequent to that, there were no troubles with ventilation or suctioning.? We changed his vent settting to AC 16/450/24%/+6.? On that, he was running an ETCO2 of 56. Today he remains fully arousable, appropriate, and communicative.? He still feels nauseous sometimes.? Residuals have been in the 200s range.? On AC 20/450/28%/+6, his? RR is 20, PIP 20, ETCO2 55, Sat 96%.? HR 92, SR.? BP 134/76.? No JVD at 20-30?.? Chest is CTA w normal exp phase.? RRR, normal- sounding S1 and S2, with no murmur or gallops.? The abdomen is flat and benign.? No edema. LABORATORY DATA:? None today. IMAGING:? CXR shows small apical right PTX, maybe sl. smaller than yesterday.? Slightly blunted right costophrenic angle. MICROBIOLOGY:? Sputum Gram stain from 12/05 showed 4+ polys with 2+ Gram- negative rods and 1+ yeast.? Culture is growing 4+ pseudomonas IMPRESSION:? 34 yo young man with ALS. 1. ALS 2. Trach tube occluded by inspisated secretions.? Trach was changed to an 8.0 Portex DIC. 3. RLL pneumonia.? Last time he was at [facility] in early October, he grew Pseudomonas out of a respiratory culture that had intermediate sensitivity to Zosyn, and good sensitivity to cefepime, Cipro, and meropenam.? We have him on cefepime pending sensitivities here. 4. Rt Pneumothorax.? Check CXR tomorrow morning. 5. High residuals.? CT does not show a gastric dil.? Rx Reglan prn. Plan at this time is d/c home on Wednesday, 12/09. Time (including extensive discussions with family re current care and home care):? [id number] Critical Care Time (minutes): 0 Physical Exam Vital Signs: Vital Signs: Last Vital Signs Temp 98.8 F 12/06/20 12:00 Pulse 111 H 12/06/20 13:00 Resp 20 12/06/20 13:00 BP 137/76 12/06/20 13:00 Pulse Ox 99 12/06/20 13:00 Oxygen Flow Rate 21 12/04/20 20:22 Body Mass Index 30.4 Objective Data Labs CBC & Chem 7: 12/05/20 05:23 12/05/20 05:23 Labs: Laboratory Results - last 24 hr 12/05/20 16:53 POC Glucose 140 H Microbiology Microbiology Results: Microbiology 12/05/20 00:59 Sputum - Suctioned Gram Stain - Final 12/05/20 00:59 Sputum - Suctioned Sputum Culture - Preliminary Pseudomonas species 12/04/20 18:19 Blood - Venous Blood Culture - Preliminary No growth after 24 hours. 12/04/20 18:19 Blood - Venous Blood Culture - Preliminary No growth after 24 hours. Quality Stroke Does the patient have a stroke diagnosis?: No VTE Prior VTE?: No VTE Risk Level:: Medical - low VTE Device Contraindication: Treatment Not Indicated VTE Drug Contraindication: Treatment Not Indicated
[2020-12-06] MEDS: diazePAM 2 MG TABLET 4 MG G-TUBE (16:28)
--- NOTE | 2020-12-06 17:05 | PM.PNTS ---
Subjective Subjective Date of Service: 12/06/20 Interval history: Patient was seen examined this morning. This is a late entry from that examination. Patient informs me that he had felt his popping sensation in the right side of his chest while he was being bagged for mucus plugging. Patient wondering if this was the on set of his pneumothorax. States that he no longer has right-sided chest discomfort. Physical Exam Vital Signs: Vital Signs: Last Vital Signs Temp 99.5 F 12/06/20 15:00 Pulse 91 12/06/20 17:00 Resp 20 12/06/20 17:00 BP 152/87 H 12/06/20 17:00 Pulse Ox 96 12/06/20 17:00 Oxygen Flow Rate 21 12/04/20 20:22 Body Mass Index 30.4 Const: General: cooperative, healthy appearing, comfortable and no acute distress Nutritional Appearance: well nourished Orientation/consciousness: patient oriented x3 Limitations: no limitations and other limitations (ALS, communicates with computer device) HENMT: Head: Yes normal to inspection, Yes normocephalic and Yes atraumatic Mouth: Normal oral and palatal mucosa present Eyes: General: appearance normal, both eyes and all related structures Alignment and Position: alignment normal Conjunctivae: conjunctivae normal Sclerae: sclerae normal EOM: EOMs intact bilaterally Neck: Neck: Yes normal visual inspection, Yes full ROM, Yes no lymphadenopathy, Yes trachea midline, Yes supple, No lymphadenopathy, No tender, No tracheal deviation and Yes tracheostomy present Lymphatic: no lymphadenopathy noted Chest: Chest palpation & inspection: normal inspection of the chest, normal palpation of entire chest wall, no crepitus and no tenderness Resp: Effort & Inspection: normal respiratory effort, able to speak in complete sentences, normal respiratory pattern, no audible wheezes, no cough, no pursed lip breathing, no respiratory distress, no stridor, not tachypneic and no tracheal deviation Auscultation: clear to auscultation bilaterally Cardio: Jugular venous distension: no JVD Palpation: normal PMI Rate: regular rate Rhythm: regular rhythm Heart sounds: S1 normal heart sound present, S2 normal heart sound present, no click, no gallops, no murmurs, no rubs and normal S1 and S2 GI: Inspection: Yes normal to inspection Auscultation: normal bowel sounds Neuro: General: patient oriented x3 Extrem: General: Yes normal to inspection, Yes capillary refill normal and Yes no clubbing, cyanosis or edema Psych: Appearance: grossly normal and well kempt Mental Status: mental status grossly normal Affect: normal affect Attitude: cooperative Thought process: Normal thought process present Procedures Date of Service Date of Service: 12/06/20 Progress Note: A&P Assessment and plan (1) Mucus plugging of bronchi: Status: Acute (2) Bilateral pneumonia: Status: Acute (3) Acute on chronic respiratory failure with hypoxia: Status: Acute (4) ALS (amyotrophic lateral sclerosis): Status: Acute (5) Pneumothorax on right: Status: Acute Assessment and Plan: Patient is a 34 y.o. male with a PMH of SOD1 ALS who [facility] with hypoxia who was found to have a small right pneumothorax. Right pneumothorax: 1st occurence of small right apical PTX noted on CXR and chest CT scan. Too small for bedside tube and remains stable at this time. Pneumothorax likely related to increased intrathoracic pressure during manual ambu-bagging of patient prior to arrival to ER If right pneumothorax increases, would recommend IR pigtail chest tube placement. Morning chest x-ray shows decrease in small right-sided pneumothorax. No surgical intervention is recommended. Cough, deep breathe, supplemental O2 Tracheostomy suctioning Multiple pulmonary nodules found on CT: Unsure of etiology at this time but would recommend a short-term chest CT scan in 3 months to assess resolution. Likely inflammatory in nature. Patient may follow-up with pulmonary in the outpatient setting seeing as he is already followed by Dr. Perez to discuss findings of chest CT scan Case discussed with Dr. Luong. Thoracic surgery will be signing off at this time Thank you for this consult. Fall Risk Details Current Medications: Current Medications Acetaminophen (Acetaminophen Oral Liquid 650 Mg/20.3 Ml Solution) 650 mg G-TUBE Q4H PRN PRN Reason: Pain (Scale Score 1-3) Last Admin: 12/06/20 16:24 Dose: 650 mg Documented by: Albuterol/Ipratropium (Albuterol/Iprat 2.5/0.5mg 3 Ml Ampul.Neb) 3 ml INHALE RQ6H KRISH Last Admin: 12/06/20 11:07 Dose: 3 ml Documented by: Albuterol/Ipratropium (Albuterol/Iprat 2.5/0.5mg 3 Ml Ampul.Neb) 3 ml INHALE RQ4H PRN PRN Reason: Shortness of Breath Last Admin: 12/06/20 13:59 Dose: 3 ml Documented by: Baclofen (Baclofen 10 Mg Tablet) 5 mg G-TUBE TID [facility] Last Admin: 12/06/20 13:49 Dose: 5 mg Documented by: Diazepam (Diazepam 2 Mg Tablet) 4 mg G-TUBE Q6H PRN PRN Reason: Muscle Spasm Last Admin: 12/06/20 16:28 Dose: 4 mg Documented by: Docusate Sodium (Docusate Sodium 100 Mg/10 Ml Liquid) 100 mg G-TUBE BID [facility] Last Admin: 12/06/20 10:37 Dose: Not Given Documented by: Enoxaparin Sodium (Enoxaparin Sodium 40 Mg/0.4 Ml Syringe) 40 mg SUBCUT DAILY [facility] Last Admin: 12/06/20 10:37 Dose: 40 mg Documented by: Fentanyl (Fentanyl 100 Mcg Patch.Td72) 100 mcg TRANSDERMA Q3D [facility] Last Admin: 12/05/20 09:53 Dose: 100 mcg Documented by: Gabapentin (Gabapentin 600 Mg Tablet) 600 mg G-TUBE TID [facility] Last Admin: 12/06/20 13:48 Dose: 600 mg Documented by: Hydromorphone HCl (Hydromorphone Hcl 2 Mg Tablet) 2 mg G-TUBE Q3H PRN PRN Reason: Pain (Scale Score 4-6) Last Admin: 12/06/20 13:52 Dose: 2 mg Documented by: Cefepime HCl 2 gm/ Sodium (Chloride) 50 mls @ 100 mls/hr IV Q8H [facility] Last Infusion: 12/06/20 11:50 Dose: Infused Documented by: Lidocaine (Lidocaine 4 % Patch Adh..Patch) 1 patch TRANSDERMA DAILY [facility] Last Admin: 12/06/20 10:38 Dose: 1 patch Documented by: Nicotine (Nicotine 14 Mg Patch.Td24) 14 mg TRANSDERMA DAILY [facility] Last Admin: 12/06/20 10:38 Dose: 14 mg Documented by: Nystatin (Nystatin Oral Susp 500,000 Unit/5 Ml Oral.Susp) 400,000 unit PO QID [facility]; Protocol Last Admin: 12/06/20 13:42 Dose: Not Given Documented by: Ondansetron HCl (Ondansetron Odt 4 Mg Tab.Rapdis) 4 mg TRANSLINGU Q6H PRN PRN Reason: Nausea Last Admin: 12/05/20 09:29 Dose: 4 mg Documented by: Ondansetron HCl (Ondansetron Hcl 4 Mg/2 Ml Vial) 4 mg IVPUSH Q4H PRN PRN Reason: Nausea Last Admin: 12/06/20 16:24 Dose: 4 mg Documented by: Oxycodone HCl (Oxycodone Hcl Immed Release 5 Mg Tablet) 20 mg G-TUBE Q3H PRN PRN Reason: Pain (Scale Score 4-6) Last Admin: 12/06/20 13:47 Dose: 20 mg Documented by: Pantoprazole Sodium (Pantoprazole Sodium 40 Mg/10 Ml Vial) 40 mg IVPUSH DAILY@0630 [facility] Last Admin: 12/06/20 06:18 Dose: 40 mg Documented by: Pharmacy Consult (Consult Rx Vancomycin Dosing) 1 each MISCELLANE DAILY PRN PRN Reason: Consult order Polyethylene Glycol (Polyethylene Glycol 3350 17 Gm Powd.Pack) 17 gm G-TUBE Q2D@0900 [facility] Last Admin: 12/06/20 10:38 Dose: 17 gm Documented by: Senna (Senna [place] Extract Oral Syrup 15 Ml Syrup) 15 ml G-TUBE BEDTIME PRN PRN Reason: Constipation Thiamine HCl (Thiamine Hcl 100 Mg Tablet) 100 mg G-TUBE DAILY [facility] Last Admin: 12/06/20 10:39 Dose: 100 mg Documented by: Trazodone HCl (Trazodone Hcl 50 Mg Tablet) 50 mg G-TUBE BEDTIME PRN PRN Reason: Sleep Vitamin D (Cholecalciferol (Vitamin D3) 25 Mcg Tablet) 25 mcg G-TUBE DAILY [facility] Last Admin: 12/06/20 10:37 Dose: 25 mcg Documented by: Zinc Sulfate (Zinc Sulfate 220 Mg Capsule) 220 mg G-TUBE DAILY [facility] Last Admin: 12/06/20 10:37 Dose: 220 mg Documented by: Time Spent With Patient Time: Total time spent is greater than 50% in coordination of care (as documented) at patient's floor/unit and/or counseling patient: Time with patient: 15 - 24 minutes Quality Stroke Does the patient have a stroke diagnosis?: No VTE Prior VTE?: No VTE Risk Level:: Medical - low VTE Device Contraindication: Treatment Not Indicated VTE Drug Contraindication: Treatment Not Indicated
--- NOTE | 2020-12-06 19:35 | OP_ITS ---
SURGEON: Ladarius Perez MD INDICATIONS: Pneumonia and elevated ventilator pressures. PREOPERATIVE DIAGNOSIS: POSTOPERATIVE DIAGNOSIS: PROCEDURE PERFORMED: Bronchoscopy. ESTIMATED BLOOD LOSS: COMPLICATIONS: ANESTHESIA: Local. ASSISTANTS: None. SPECIMENS: POSTOPERATIVE DIAGNOSES: Occluded tracheostomy and pneumonia. DESCRIPTION OF PROCEDURE: After the patient was anesthetized with lidocaine, the bronchoscope was inserted via the tracheostomy up to the level of the trachea. The trachea appeared to be inflamed suggesting some degree of tracheitis. However, #8 Bivona Byprp-Pm-Gnblr tracheostomy was occluded with very thick brown mucus, difficult to pass the bronchoscope. This is likely causing a near complete occlusion of the tracheostomy. After instilling additional lidocaine, the bronchoscope was then passed to the entire tracheobronchial tree that was examined to the segmental level. No evidence of any significant plugs or foreign bodies. The patient did have some mucoid secretions primarily in the right lower lobe that were suctioned. Saline was administered just to clear some mucus. Specimens were not collected as the patient already had a sputum culture sent. The bronchoscope was then removed. The total endoscopic time approximately about 5 minutes. The patient tolerated the procedure well. INTERPRETATION: Diagnostic bronchoscopy demonstrating near complete occlusion of the tracheostomy, likely resulting in the elevated peak pressures and likely resulting in barotrauma. No evidence of any complications post procedure x-ray without any new complications. Ladarius Perez MD MR/MODVelma / [id number]
--- NOTE | 2020-12-06 19:39 | PC.NURSE ---
tmax 99.2, VSS. Pt able to use tablet to make needs known. Vent settings AC 20, TV 450, peep 6, FIO2 28%. Suctioned inline as asked, scant thick white secretions inline. [place] cath draining, offered to wash pt several times, pt kept saying later SR/ST on tele. Tube feedings stopped per pt request for not feeling good, zofran given. Pt said he felt like , asked what exactly didnt feel good, pt stated he had a headache, nausea, body aches, and sweaty. tylenol given, ice packs applied, and valium given for anxiety. aware, when rechecking pt, pt was resting comfortably. pt repo per request, offered pain medications throughout day.
--- NOTE | 2020-12-06 19:47 | PC.NURSE ---
family stated the needed orders for vent change and inner canula to be sent to their respiratory team, they also dont feel comfortable being d/c 12/07. Md aware and spoke with family.
[2020-12-07] VITALS (33 sets, daily range): BP systolic 96–150; BP diastolic 41–95; PULSE 83–111; RESP 20; TEMP 37.2–37.4; O2SAT 93–97
[2020-12-07] MEDS: HYDROmorphone HCl 2 MG TABLET G-TUBE ×4 (00:49→21:11)
[2020-12-07] MEDS: oxyCODONE HCl Immed Release 5 MG TABLET 20 MG G-TUBE ×4 (00:49→21:10)
[2020-12-07] MEDS: Acetaminophen Oral Liquid 650 MG/20.3 ML SOLUTION G-TUBE (00:50)
[2020-12-07] MEDS: Metoclopramide HCl 10 MG/2 ML VIAL IVPUSH ×2 (00:51→23:10)
[2020-12-07] MEDS: cefEPime HCl 2 GM in 0.9 % Sodium Chloride 50 ML IV ×3 (05:01→20:53)
[2020-12-07] MEDS: Albuterol/Iprat 2.5/0.5MG 3 ML AMPUL.NEB INHALE ×3 (05:11→17:27)
[2020-12-07 05:22] LABS: Hemoglobin 10.6 g/dl (14.0-18.0); Mean Corpuscular HGB Conc 31.2 g/dl (31.0-36.0); Mean Corpuscular Hemoglobin 29.1 pg (27.0-33.0); Mean Corpuscular Volume 93.4 fL (80-98); Mean Platelet Volume 8.9 fL (9.4-12.4); Platelet Count 269 X10*3/uL (160-400); Red Blood Count 3.64 X10*6/uL (4.60-5.80); Red Cell Distribution Width 13.2 % (11.0-16.0); White Blood Count 9.5 X10*3/uL (4.8-10.8)
[2020-12-07 05:27] LABS: VBG Base Excess 5.5 mmol/L; VBG HCO3 30 mmol/L (22-26); VBG pCO2 43 mmHg; VBG pH 7.44 (7.32-7.43); VBG pO2 132 mmHg
[2020-12-07 05:40] LABS: Venous Blood Gas Refer to POC result
[2020-12-07 05:49] LABS: Albumin Level 3.6 g/dL (3.5-5.0); Anion Gap 11 (12-20); Blood Urea Nitrogen 10 mg/dL (9-16); Carbon Dioxide 28 mmol/L (22-29); Chloride 106 mmol/L (96-108); Creatinine Clr Calc Pharmacy 294.6; Estimated Glomerular Filt Rate > 60; Glucose Random 94 mg/dL (60-115); Phosphorus 2.1 mg/dL (2.7-4.5); Potassium 3.5 mmol/L (3.3-5.1); Sodium 141 mmol/L (135-145)
[2020-12-07] MEDS: Lactated Ringers 1,000 ML 999 ML IV (06:21)
[2020-12-07] MEDS: Pantoprazole Sodium 40 MG/10 ML VIAL IVPUSH (06:22)
[2020-12-07] MEDS: ondansetron HCL 4 MG/2 ML VIAL IVPUSH ×3 (06:22→21:16)
--- NOTE | 2020-12-07 08:42 | PC.NURSE ---
tube feed restarted at 20ml/hr per pt request. pt would like to recieve tf for approx 1 hr to ensure not taking medications empty stomach per pt request. message sent to cm regarding dc respiratory questions.
[2020-12-07] MEDS: Baclofen 10 MG TABLET 5 MG G-TUBE ×3 (09:56→20:59)
[2020-12-07] MEDS: Thiamine HCL 100 MG TABLET G-TUBE (09:56)
[2020-12-07] MEDS: Zinc Sulfate 220 MG CAPSULE G-TUBE (09:56)
[2020-12-07] MEDS: Cholecalciferol (Vitamin D3) 25 MCG TABLET G-TUBE (09:56)
[2020-12-07] MEDS: Gabapentin 600 MG TABLET G-TUBE ×3 (09:56→20:58)
[2020-12-07] MEDS: Nystatin Oral Susp 500,000 UNIT/5 ML ORAL.SUSP 400000 UNIT PO ×2 (09:56→13:06)
[2020-12-07] MEDS: Docusate Sodium 100 MG/10 ML LIQUID G-TUBE ×2 (09:57→21:05)
[2020-12-07] MEDS: Nicotine 14 MG PATCH.TD24 TRANSDERMA (09:57)
[2020-12-07] MEDS: Enoxaparin Sodium 40 MG/0.4 ML SYRINGE SUBCUT (10:15)
--- NOTE | 2020-12-07 13:45 | P.PNCC_ITS ---
Subjective Subjective Date of Service: 12/07/20 Interval History: Mr. Valencia is a 34 yo M with ALS and chronic respiratory failure who was admitted to the ICU on Dec 04 because of tracheostomy problems and ventilatory failure. The patient is followed by Dr. Christensen in the ALS Clinic at [facility].? He was diagnosed in October 2019. 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 Finally, a tracheostomy and PEG were placed 10/01/20 at [facility].? Following that, he went to rehab for about a week, got transferred back to [facility] with pneumonia a week later, was in the ICU at [facility] for another 2 weeks, then went back to rehab for about another week, then went home, to be followed by Dr. Perez from [facility].? He?s been home for about the last 3 weeks. The patient lives in a house in [place] with his fiancee.? He has additional outstanding family support from his sister, parents, and prekindergarten teacher.? He is ventilated at home on the following settings:? AC 20, Vt 410cc, PEEP 8cm, insp time 1.3 sec. ?They do not have oxygen at home at this time, although they have a prescr iption for it that is pending.? The patient had a low volume TTS trach cuff that was water filled. The patient speaks via an eye gaze computer and is very well informed of his care and is able to answer all questions appropriately.? He is on a multiple medications at home including lovenox, scheduled meds of oxycodone, hydromorphone, gabapentin and diazepam as well as atrovent and albuterol. The patient was BIBA on Dec 04 bec his ventilator was signaling high peak pressures, up to low 40's for 90 minutes at a time.? After irrigating several times, the peak pressures went down but eventually they came back up again. They tried their second ventilator and had the same problems, so they were forced to bag the patient until they got him to the emergency room. ?Over the prior week they were also having trouble passing the suction catheter.? The patient had no fevers, increased secretions, vomiting or change in bladder or bowels.? The patient?s family did tell us that he?s been having recurrent nausea since he?s been home. In the ED, the patient was afebrile, with Sat 96% on room air.? He was comfortable.? He was ventilated in the ED with normal pressures.? The suction catheter was only able to be passed about 10?.? Labs in the ED revealed a slightly elevated WBC at 11.2.? Chemistries were unremarkable.? Chest x-ray showed prominent interstitial markings and somewhat hazy opacities in the lung bases.? The CXR also showed a small apical Rt pneumothorax, which the radiologist missed, and which was noted on the subsequent CT scan.? The CT scan also shows a right basilar pneumonia, and also some minor infiltrate in the left base. The patient was admitted to the ICU and ventilated overnight on room air with sats running mostly in the high 90s.? Because of the CT scan and white count, he was started on empiric Vanco and Zosyn. The next day Dec 05, the patient was completely awake and able to communicate via his eye gaze computer.? He was complaining of nausea, responded to Zofran.? Residuals in his Gtube were high, so he was given Relan.? He underwent [facility] hoscopy by Dr. Perez, which showed inspissated secretions lining his tracheostomy tube.? Otherwise, there was mild tracheobronchitis, but no sign of severe pneumonia, and no tracheaobronchial anatomic abnormalities.? The trach tube was changed to a Portex DIC size 8.0 trach tube without incident.? Subsequent to that, there were no troubles with ventilation or suctioning.? We changed his vent settting to AC 16/450/24%/+6.? He felt more comfortable on a higher rate so we put the rate back up to 20.? On that, he was running an ETCO2 of 50-52. Today he remains fully arousable, appropriate, and very communicative.? He still feels nauseous sometimes.? Residuals have been minimal.? On AC 20/450/24%/+6, his RR is 20, PIP 20, ETCO2 52, Sat 95%.? Peripheral venous blood gas this morning showed 7.44/43/+5. ?HR 92, SR.? BP 130/80.? No JVD at 20-30?.? Normal exp phase.? The abdomen is flat and benign.? Seems to have some minimal central pitting edema. LABORATORY DATA:? As below.? Notably, white count is down, BUN/creatinine are down to 10/0.3, albumin is down 3.6. IMAGING:? Repeat chest x-ray shows smaller residual apical right PTX.? Larger blunted right costophrenic angle, suggestive of pleural effusion. MICROBIOLOGY:? Sputum Gram stain from 12/05 showed 4+ polys with 2+ Gram- negative rods and 1+ yeast.? Culture is growing 4+ pseudomonas, sensitivities not reported yet. IMPRESSION:? 34 yo young man with ALS. 1. ALS 2. Trach tube occluded by inspisated secretions.? Trach was changed to an 8.0 Portex DIC. 3. RLL pneumonia.? Last time he was at [facility] in early October, he grew Pseudomonas out of a respiratory culture that had intermediate sensitivity to Zosyn, and good sensitivity to cefepime, Cipro, and meropenam.? We have him on cefepime pending sensitivities here. 4. Rt Pneumothorax.? Smaller every day. 5. High residuals.? CT does not show a gastric dil.? We are going to change his formula to Vital HN 1.5, see if he absorbs that better.? If not, we?ll try Reglan. 6. Rt. pleural effusion.? By all indications, he could tolerate some diuresis.? If that doesn?t improve his pleural effusion, then he might need a repeat CT scan and possibly a thoracentesis to make sure it?s not an empyema.? But at this moment, there are no suggestions of the latter (e.g. no fever, WBC, or worsening hypoxemia). I called [facility] to see what they need in preparation for discharge.? [phone]. Time (including extensive discussions with patient and family re current care and home care, extensive d/w wellness educator, extensive phone d/w RT from [facility]):? 90 min ([id number] [phone]) Critical Care Time (minutes): 0 Physical Exam Vital Signs: Vital Signs: Last Vital Signs Temp 99.1 F 12/07/20 12:00 Pulse 106 H 12/07/20 13:00 Resp 20 12/07/20 13:00 BP 146/89 H 12/07/20 13:00 Pulse Ox 94 12/07/20 13:00 Oxygen Flow Rate 21 10/13/21 20:22 Body Mass Index 30.4 Objective Data Labs CBC & Chem 7: 12/07/20 05:10 12/07/20 05:10 Labs: Laboratory Results - last 24 hr 12/07/20 12/07/20 12/07/20 05:10 05:10 05:21 WBC 9.5 RBC 3.64 L Hgb 10.6 L Hct 34.0 L MCV 93.4 MCH 29.1 MCHC 31.2 RDW 13.2 Plt Count 269 MPV 8.9 L Absolute Nucleated RBC 0.000 Nucleated RBC % (auto) 0.0 VBG pH 7.44 H VBG pCO2 43 VBG pO2 132 VBG HCO3 30 H VBG O2 Saturation 99.0 VBG Base Excess 5.5 Sodium 141 Potassium 3.5 D Chloride 106 Carbon Dioxide 28 Anion Gap 11 L BUN 10 Creatinine 0.39 L Estim Creat Clear Calc 294.6 Estimated GFR > 60 Random Glucose 94 Calcium 9.0 Phosphorus 2.1 L Magnesium 2.0 Albumin 3.6 Microbiology Microbiology Results: Microbiology 12/05/20 00:59 Sputum - Suctioned Gram Stain - Final 12/05/20 00:59 Sputum - Suctioned Sputum Culture - Preliminary Pseudomonas species 12/04/20 18:19 Blood - Venous Blood Culture - Preliminary No growth after 48 hours. 12/04/20 18:19 Blood - Venous Blood Culture - Preliminary No growth after 48 hours. Quality Stroke Does the patient have a stroke diagnosis?: No VTE Prior VTE?: No VTE Risk Level:: Medical - low VTE Device Contraindication: Treatment Not Indicated VTE Drug Contraindication: Treatment Not Indicated
--- NOTE | 2020-12-07 15:31 | MHC.CLN ---
F/U DISCUSSED CASE WITH PT C/O NAUSEA WITH CURRENT TF SINCE ADMISSION PT AND FAMILY IN AGREEMENT TO TRIAL ELEMENTAL FORMULA RECOMMEND TUBE FEEDING VITAL 1.5 AT MAX GOAL RATE 65 ML/HR TO PROVIDE 2340 KCALS (25.7 KCALS/KG), 105 GRAMS PROTEIN (1.15 G/KG), AND 1192 CC FREE WATER FROM FORMULA START TF AT 20ML/HR AND INCREASE BY 10ML Q 4 HRS UNTIL MAX GOAL IS ACHIEVED MONITOR TOLERANCE, RESIDUALS AND LYTES
--- NOTE | 2020-12-07 15:57 | MHC.CM.PN ---
Addendum entered by Kenna Arrington 12/08/20 11:01: Received message on Case Management voicemail on 12/07 at 14:20 from patient's sister, Tanvir, requesting same info as Allison. Referral made in [employer] to [facility] to relay all of this info. Original Note: Received notification that patient's ariadnaanceAllison is requesting to speak to Case Management. T/W met with patient and Allison. Patient's respiratory company is [employer]. They're requesting a prescription for inner cannulas and current vent settings. T/w is attempting to get cannula brand and size from resp therapist. Dr Jarrett aware. Continue to monitor for d/c needs.
[2020-12-07] MEDS: Furosemide 20 MG/2 ML VIAL IVPUSH (16:04)
[2020-12-07] MEDS: Sodium,Potassium Phosphates POWD.PACK 2 PACKET G-TUBE ×2 (16:05→23:08)
[2020-12-07] MEDS: diazePAM 2 MG TABLET 4 MG G-TUBE (18:39)
[2020-12-07] MEDS: Lactated Ringers 1,000 ML 500 ML IV (21:30)
[2020-12-08] VITALS (33 sets, daily range): BP systolic 110–162; BP diastolic 63–104; PULSE 82–103; RESP 20; TEMP 31.6–36.5; O2SAT 91–100
[2020-12-08] MEDS: Albuterol/Iprat 2.5/0.5MG 3 ML AMPUL.NEB INHALE ×2 (00:17→06:09)
[2020-12-08] MEDS: oxyCODONE HCl Immed Release 5 MG TABLET 20 MG G-TUBE ×4 (04:52→23:51)
[2020-12-08] MEDS: cefEPime HCl 2 GM in 0.9 % Sodium Chloride 50 ML IV ×3 (04:58→19:56)
[2020-12-08] MEDS: Pantoprazole Sodium 40 MG/10 ML VIAL IVPUSH (06:32)
[2020-12-08] MEDS: Docusate Sodium 100 MG/10 ML LIQUID G-TUBE ×2 (08:02→19:55)
[2020-12-08] MEDS: Nicotine 14 MG PATCH.TD24 TRANSDERMA (08:02)
[2020-12-08] MEDS: polyethylene glycoL 3350 17 GM POWD.PACK G-TUBE (08:02)
[2020-12-08] MEDS: Lidocaine 4 % Patch ADH..PATCH 1 PATCH TRANSDERMA (08:02)
[2020-12-08] MEDS: Thiamine HCL 100 MG TABLET G-TUBE (08:03)
[2020-12-08] MEDS: Cholecalciferol (Vitamin D3) 25 MCG TABLET G-TUBE (08:03)
[2020-12-08] MEDS: Zinc Sulfate 220 MG CAPSULE G-TUBE (08:03)
[2020-12-08] MEDS: Gabapentin 600 MG TABLET G-TUBE ×3 (08:03→19:56)
[2020-12-08] MEDS: Enoxaparin Sodium 40 MG/0.4 ML SYRINGE SUBCUT (08:03)
[2020-12-08] MEDS: Baclofen 10 MG TABLET 5 MG G-TUBE ×3 (08:04→19:59)
[2020-12-08] MEDS: fentaNYL 100 MCG PATCH.TD72 TRANSDERMA (08:06)
[2020-12-08 08:13] LABS: VBG Base Excess 8.1 mmol/L; VBG HCO3 33 mmol/L (22-26); VBG pCO2 46 mmHg; VBG pH 7.45 (7.32-7.43); VBG pO2 115 mmHg
[2020-12-08 08:38] LABS: Venous Blood Gas Refer to POC result
[2020-12-08 08:50] LABS: Anion Gap 12 (12-20); Blood Urea Nitrogen 9 mg/dL (9-16); Calcium 9.3 mg/dL (8.4-10.2); Carbon Dioxide 31 mmol/L (22-29); Chloride 104 mmol/L (96-108); Creatinine Clr Calc Pharmacy 310.5; Estimated Glomerular Filt Rate > 60; Glucose Random 100 mg/dL (60-115); Magnesium 1.9 mg/dL (1.6-2.6); Phosphorus 3.3 mg/dL (2.7-4.5); Potassium 3.7 mmol/L (3.3-5.1); Sodium 143 mmol/L (135-145)
[2020-12-08 08:53] LABS: B Type Natriuretic Peptide < 10 pg/mL (<100)
[2020-12-08] MEDS: Metoclopramide HCl 10 MG/2 ML VIAL IVPUSH (09:13)
--- NOTE | 2020-12-08 09:47 | PC.NURSE ---
Pt A&Ox3, denies pain or SOB. Vented through trach ACVC rate 20, PEEP 6, FiO2 24%, Vt 450, EtCO2 54 SaO2 96%, lungs clear, small thick white secretion, on cefepime for pseudomonas species in sputum, susceptible in C&S. Comminicating well with eye gaze eyepad, able to move head and eyes, flaccid everywhere else. NSR w/ unchanged ST depression lead II, no chest pain or SOB, BP stable, 2+ pulses x4 extremities, -960ml fluid balance from IV lasix given last night. Tube feeds have been at 50ml/hr since 0400, 0900 residulas 125ml without nausea. When residual was replaced, and PEG tube meds were given, pt did become nauseous and 10mg reglan IVP was given with positive therapeutic effect, remains at 50ml/hr. Pt requested to talk to preist, racing secretary and handicapper called and left a message as no one picked up. Bed locked and in lowest posiition, semi fowlers, call schreiber in reach. Amina' at bedside.
--- NOTE | 2020-12-08 11:05 | P.PNCC_ITS ---
Subjective Subjective Date of Service: 12/08/20 Critical Care Time (minutes): 0 Comment: Mr. Valencia is a 34 yo M with ALS and chronic respiratory failure who was admitted to the ICU on Dec 04 because of tracheostomy problems and ventilatory failure. The patient is followed by Dr. Christensen in the ALS Clinic at [facility].? He was diagnosed in October 2019. 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 Finally, a tracheostomy and PEG were placed 10/01/20 at [facility].? Following that, he went to rehab for about a week, got transferred back to [facility] with pneumonia a week later, was in the ICU at [facility] for another 2 weeks, then went back to rehab for about another week, then went home, to be followed by Dr. Perez from [facility].? He?s been home for about the last 3 weeks. The patient lives in a house in [place] with his fiancee.? He has additional outstanding family support from his sister, parents, and incinerator plant supervisor.? He is ventilated at home on the following settings:? AC 20, Vt 410cc, PEEP 8cm, insp time 1.3 sec. ?They do not have oxygen at home at this time, although they have a prescription for it that is pending.? The patient had a low volume TTS trach cuff that was water filled. The patient speaks via an eye gaze computer and is very well informed of his care and is able to answer all questions appropriately.? He is on a multiple medications at home including lovenox, scheduled meds of oxycodone, hydromorphone, gabapentin and diazepam as well as atrovent and albuterol. The patient was BIBA on Dec 04 bec his ventilator was signaling high peak pressures, up to low 40's for 90 minutes at a time.? After irrigating several times, the peak pressures went down but eventually they came back up again. They tried their second ventilator and had the same problems, so they were forced to bag the patient until they got him to the emergency room. ?Over the prior week they were also having trouble passing the suction catheter.? The patient had no fevers, increased secretions, vomiting or change in bladder or bowels.? The patient?s family did tell us that he?s been having recurrent nausea since he?s been home. In the ED, the patient was afebrile, with Sat 96% on room air.? He was comfortable.? He was ventilated in the ED with normal pressures.? The suction catheter was only able to be passed about 10?.? Labs in the ED revealed a slightly elevated WBC at 11.2.? Chemistries were unremarkable.? Chest x-ray showed prominent interstitial markings and somewhat hazy opacities in the lung bases.? The CXR also showed a small apical Rt pneumothorax, which the radiologist missed, and which was noted on the subsequent CT scan.? The CT scan also shows a right basilar pneumonia, and also some minor infiltrate in the left base. The patient was admitted to the ICU and ventilated overnight on room air with sats running mostly in the high 90s.? Because of the CT scan and white count, he was started on empiric Vanco and Zosyn, subsequently changed to cefepime. The next day Dec 05, he underwent bronchoscopy by Dr. Perez, which showed inspissated secretions lining his tracheostomy tube.? Otherwise, there was mild tracheobronchitis, but no sign of severe pneumonia, and no tracheaobronchial anatomic abnormalities.? The trach tube was changed to a Portex DIC size 8.0 trach tube without incident.? Subsequent to that, there were no troubles with ventilation or suctioning.? We changed his vent settting to AC 16/450/24%/+6.? He felt more comfortable on a higher rate so we put the rate back up to 20.? On that, he was running an ETCO2 of 50-56. Since then the main symptomatic issue we?ve addressed has been his feeding.? He?s been c/o nausea since he left the [facility].? He didn?t tolerate Jevity at rehab, so he was put on his current formula which is the [employer] standard organic formula. Recent evidence implicates abnormalities of autonomic function in ALS including problems with gastrointestinal (GI) motility. GI complaints reported by ALS pa tients such as constipation, diffuse abdominal pain, and a feeling of fullness or nausea may be attributed to autonomic involvement. Imani et al. found delayed gastric emptying in most ALS patients, indicating autonomic dysfunction (Gastrointestinal dysfunction in amyotrophic lateral sclerosis. Amyotrophic Lateral Sclerosis Other Motor Neuron Disord 1999; 1:15-19). The same authors also reported markedly prolonged colon transit time in ALS (Imani et al: Delayed colonic transit times in amyotrophic lateral sclerosis assessed with radio-opaque markers. Eur J Med Res 1997; 2:473-476).? There is a current trial going on looking at gastrointestinal motility in patients with ALS ( ttps://clinicaltrials.gov/ct2/show/WAW14053823 ). Because of the above, we started him on an elemental tube feed, Vital HN 1.5.? We?ve also stopped the free water flushes that he was getting.? We have also deliberately withheld giving him any Reglan so we can tell if he has a symptomatic improvement from the day elemental formula.? He tells us that his stomach feels much better and his nausea is much better than it was with the old formula, so he would like to continue with the Vital HN. Since we started with the Vital, residuals have been on the order of 100cc or less.? Today, on AC 20/450/21%/+6, his RR is 20, PIP 20, ETCO2 52-55, Sat 94%.? Peripheral venous blood gas this morning showed 7.45/46/+8.? HR 94, SR.? BP 150/89.? He?s been afebrile the entire hospital stay.? No JVD at about 30?.? Chest is completely clear to auscultation, with a normal exp phase.? Heart rate and rhythm are regular, with normal-sounding S1 and S2, with no murmur or gallops.? The abdomen is flat and benign.? He has some minimal central pitting edema. LABORATORY DATA:? As below.? Notably, sodium is up to 143, BUN/creatinine are steady. IMAGING:? Repeat chest x-ray shows no PTX.? RLL opacity w blunted right costophrenic angle is unchanged. - Bilat UE duplex US -- No DVT. - Rt chest US -- no pleural fluid. - Repeat chest CT (bec of worse RLL on CXR) -- no signif pleural eff, RLL infiltrate unchanged from prev CT, LLL infiltrate improved, and much smaller, tiny residual right apical PTX. MICROBIOLOGY:? Sputum Gram stain from 12/05 showed 4+ polys with 2+ Gram- negative rods and 1+ yeast.? Culture is growing 4+ pseudomonas, two different species, both tucker sensitive. IMPRESSION:? 34 yo young man with ALS. 1. ALS 2. Trach tube occluded by inspisated secretions.? Trach was changed to an 8.0 Portex DIC. 3. RLL pneumonia.? Last time he was at [facility] in early October, he grew Pseudomonas out of a respiratory culture that had intermediate sensitivity to Zosyn, and good sensitivity to cefepime, Cipro, and meropenam.? We have him on cefepime now.? Could go home on oral Cipro, +/- nebulized aminoglycoside.? Will be arranged by Dr. Perez. 4. Rt Pneumothorax.? Smaller every day. 5. High residuals.? CT does not show a gastric dil.? Changed his formula to Vital HN 1.5, symptomatically much better tolerated. I spoke with an RT from [facility] to see what they need in preparation for discharge.? [phone].? An RT from their service will come to the hospital tomorrow morning in preparation for discharge. Time (including extensive discussions with patient and family re current care a nd home care, and extensive d/w Dr. Perez):? 90 min ([id number] + [id number]) Physical Exam Vital Signs: Vital Signs: Last Vital Signs Temp 90 F L 12/08/20 09:00 Pulse 94 12/08/20 11:00 Resp 20 12/08/20 11:00 BP 150/89 H 12/08/20 11:00 Pulse Ox 93 12/08/20 11:00 Oxygen Flow Rate 21 12/04/20 20:22 Body Mass Index 30.4 Objective Data Labs CBC & Chem 7: 12/07/20 05:10 12/08/20 08:06 Labs: Laboratory Results - last 24 hr 12/08/20 12/08/20 12/08/20 08:06 08:06 08:07 VBG pH 7.45 H VBG pCO2 46 VBG pO2 115 VBG HCO3 33 H VBG O2 Saturation 99.0 VBG Base Excess 8.1 Sodium 143 Potassium 3.7 Chloride 104 Carbon Dioxide 31 H Anion Gap 12 BUN 9 Creatinine 0.37 L Estim Creat Clear Calc 310.5 Estimated GFR > 60 Random Glucose 100 Calcium 9.3 Phosphorus 3.3 Magnesium 1.9 B-Natriuretic Peptide < 10 Microbiology Microbiology Results: Microbiology 12/05/20 00:59 Sputum - Suctioned Gram Stain - Final 12/05/20 00:59 Sputum - Suctioned Sputum Culture - Final Pseudomonas aeruginosa#2 Pseudomonas aeruginosa 12/04/20 18:19 Blood - Venous Blood Culture - Preliminary No growth after 48 hours. 12/04/20 18:19 Blood - Venous Blood Culture - Preliminary No growth after 48 hours. Quality Stroke Does the patient have a stroke diagnosis?: No VTE Prior VTE?: No VTE Risk Level:: Medical - low VTE Device Contraindication: Treatment Not Indicated VTE Drug Contraindication: Treatment Not Indicated
[2020-12-08] MEDS: Acetaminophen Oral Liquid 650 MG/20.3 ML SOLUTION G-TUBE (12:24)
[2020-12-08] MEDS: HYDROmorphone HCl 2 MG TABLET G-TUBE ×3 (12:24→23:50)
[2020-12-08] MEDS: Magnesium Sulfate/D5W 1 GM/100 ML PIGGYBACK IV (17:10)
[2020-12-08] MEDS: Potassium Chloride Packet 20 MEQ PACKET 40 MEQ G-TUBE (17:10)
[2020-12-08] MEDS: Albuterol Sulfate 90 MCG 8 GM INHALER 4 PUFF INHALE ×2 (17:37→21:23)
[2020-12-08] MEDS: Ipratropium Bromide 1 PUFF/17 MCG INHALER 2 PUFF INHALE ×2 (17:37→21:24)
[2020-12-08] MEDS: Lactulose 20 GM/30 ML SOLUTION PO ×3 (17:45→23:51)
[2020-12-08] MEDS: Lactated Ringers 500 ML IV (21:00)
[2020-12-09] VITALS (32 sets, daily range): BP systolic 119–176; BP diastolic 77–110; PULSE 86–119; RESP 20–21; TEMP 36.7–37.4; O2SAT 92–100; BMI 31.1
[2020-12-09] MEDS: Pantoprazole Sodium 40 MG/10 ML VIAL IVPUSH (04:53)
[2020-12-09] MEDS: cefEPime HCl 2 GM in 0.9 % Sodium Chloride 50 ML IV ×3 (04:54→19:54)
[2020-12-09] MEDS: Lactulose 20 GM/30 ML SOLUTION PO (04:54)
[2020-12-09] MEDS: Ipratropium Bromide 1 PUFF/17 MCG INHALER 2 PUFF INHALE (05:03)
[2020-12-09] MEDS: Albuterol Sulfate 90 MCG 8 GM INHALER 4 PUFF INHALE (05:03)
[2020-12-09] MEDS: HYDROmorphone HCl 2 MG TABLET G-TUBE ×2 (05:06→13:19)
[2020-12-09] MEDS: oxyCODONE HCl Immed Release 5 MG TABLET 20 MG G-TUBE (05:09)
[2020-12-09 05:17] LABS: VBG Base Excess 4.9 mmol/L; VBG HCO3 27 mmol/L (22-26); VBG pCO2 35 mmHg; VBG pO2 90 mmHg
[2020-12-09] MEDS: Metoclopramide HCl 10 MG/2 ML VIAL IVPUSH (05:21)
[2020-12-09 05:25] LABS: Venous Blood Gas Refer to POC result
[2020-12-09 05:33] LABS: Hemoglobin 12.2 g/dl (14.0-18.0); Mean Corpuscular HGB Conc 31.3 g/dl (31.0-36.0); Mean Corpuscular Volume 92.6 fL (80-98); Mean Platelet Volume 8.8 fL (9.4-12.4); Platelet Count 330 X10*3/uL (160-400); Red Blood Count 4.21 X10*6/uL (4.60-5.80); Red Cell Distribution Width 13.3 % (11.0-16.0); White Blood Count 9.4 X10*3/uL (4.8-10.8)
[2020-12-09 05:46] LABS: Anion Gap 13 (12-20); Blood Urea Nitrogen 9 mg/dL (9-16); Calcium 9.6 mg/dL (8.4-10.2); Carbon Dioxide 29 mmol/L (22-29); Chloride 106 mmol/L (96-108); Creatinine Clr Calc Pharmacy 273.6; Estimated Glomerular Filt Rate > 60; Glucose Random 101 mg/dL (60-115); Magnesium 2.1 mg/dL (1.6-2.6); Phosphorus 3.6 mg/dL (2.7-4.5); Potassium 4.4 mmol/L (3.3-5.1); Sodium 144 mmol/L (135-145)
[2020-12-09] MEDS: Thiamine HCL 100 MG TABLET G-TUBE (07:47)
[2020-12-09] MEDS: Cholecalciferol (Vitamin D3) 25 MCG TABLET G-TUBE (07:47)
[2020-12-09] MEDS: Zinc Sulfate 220 MG CAPSULE G-TUBE (07:47)
[2020-12-09] MEDS: Enoxaparin Sodium 40 MG/0.4 ML SYRINGE SUBCUT (07:48)
[2020-12-09] MEDS: Baclofen 10 MG TABLET 5 MG G-TUBE ×3 (07:48→19:55)
[2020-12-09] MEDS: Gabapentin 600 MG TABLET G-TUBE ×3 (07:48→19:55)
[2020-12-09] MEDS: Nicotine 14 MG PATCH.TD24 TRANSDERMA (07:49)
[2020-12-09] MEDS: Lidocaine 4 % Patch ADH..PATCH 1 PATCH TRANSDERMA (08:57)
[2020-12-09] MEDS: levoFLOXacin/D5W 750 MG/150 ML PIGGYBACK 100 MG IV (09:11)
[2020-12-09] MEDS: Docusate Sodium 100 MG/10 ML LIQUID G-TUBE ×2 (09:13→19:54)
--- NOTE | 2020-12-09 10:27 | MHC.CM.PN ---
Met with pt and sister Tanvir. [facility] vent rep Bharathi in room and will ensure pt's home vent is set up with his new settings in anticipation of 12/10 d/c Per discussion with MD in rounds, pt has been started on a new tube feed better formulated for patients with ALS. He is tolerating this well although his residuals remain elevated. As pt did not have services at home, residuals were never tested, therefore, there isn't a baseline. Referral placed to [facility] (pt's existing TF vendor) notifiying them of the change. Script will be completed by and then faxed to [facility]. Referred to [facility] for covending RN visit status. Awaiting correspondance.
--- NOTE | 2020-12-09 11:06 | MHC.CLN ---
F/U PT WITH IMPROVED TOLERANCE ON VITAL HN AND NAUSEA RESOLVED PER PT, ALTHOUGH RESIDUALS ELEVATED THIS MORNING PER NSG REGLAN GIVEN & TF ON HOLD DISCUSSED CASE WITH MD AND CM AT ROUNDS PT RECEIVING VITAL 1.5 AT MAX GOAL RATE 65 ML/HR PROVIDES 2340 KCALS (25.7 KCALS/KG), 105 GRAMS PROTEIN (1.15 G/KG), AND 1192 CC FREE WATER FROM FORMULA IF FREE WATER FLUSHES NEEDED; RECOMMEND 240CC Q 4 HRS TO PROVIDE 2632CC TOTAL WATER FROM FORMULA AND FLUSHES (29CC/KG) MONITOR TOLERANCE, RESIDUALS AND LYTES
--- NOTE | 2020-12-09 15:00 | PM.PNPUL ---
Subjective Subjective Date of Service: 12/09/20 Principal diagnosis: pneumonia/ mucous plugging Interval history: The patient was seen and examined. Currently ventilator. Settings of tidal volume of 450 her respiratory are 20 and a PEEP of 6. Patient did have a blood gas demonstrating a pH 7.5 and a pCO2 35. Patient also had a CT scan of the chest that was personally by me demonstrating significant improvement of the pneumothorax only with a trace along with interval improvement in the right lower lobe consolidation. Yesterday the patient did have some right-sided chest discomfort and we opted on stopping the cough assist device. Will give a break today. I did talk to his respiratory company was able to decrease the assist pressures down to 20 cm. The patient continues to be on antibiotics for the Pseudomonas pneumonia. He is doing well with [place] DIC tracheostomy. I did speak to the patient and also his sister and was able to answer some questions for the father as well. Objective Data Labs CBC & Chem 7: 12/09/20 05:06 12/09/20 05:06 Labs: Laboratory Results - last 24 hr 12/09/20 12/09/20 12/09/20 05:06 05:06 05:11 WBC 9.4 RBC 4.21 L Hgb 12.2 L Hct 39.0 L MCV 92.6 MCH 29.0 MCHC 31.3 RDW 13.3 Plt Count 330 MPV 8.8 L Absolute Nucleated RBC 0.000 Nucleated RBC % (auto) 0.0 VBG pH 7.50 H VBG pCO2 35 VBG pO2 90 VBG HCO3 27 H VBG O2 Saturation 97.0 VBG Base Excess 4.9 Sodium 144 Potassium 4.4 Chloride 106 Carbon Dioxide 29 Anion Gap 13 BUN 9 Creatinine 0.42 L Estim Creat Clear Calc 273.6 Estimated GFR > 60 Random Glucose 101 Calcium 9.6 Phosphorus 3.6 Magnesium 2.1 Microbiology Microbiology Results: Microbiology 12/05/20 00:59 Sputum - Suctioned Gram Stain - Final 12/05/20 00:59 Sputum - Suctioned Sputum Culture - Final Pseudomonas aeruginosa#2 Pseudomonas aeruginosa 12/04/20 18:19 Blood - Venous Blood Culture - Preliminary No growth after 48 hours. 12/04/20 18:19 Blood - Venous Blood Culture - Preliminary No growth after 48 hours. Review of Systems Constitutional: Denies night sweats Denies lip swelling and Denies tongue swelling Cardiovascular: Reports chest pain Respiratory: Reports as per HPI, Denies hemoptysis and Denies excessive phlegm production Gastrointestinal: Denies abdominal pain Allergic/Immunologic: Denies lip swelling and Denies tongue swelling Physical Exam Vital Signs: Vital Signs: Last Vital Signs Temp 98.5 F 12/09/20 08:00 Pulse 101 H 12/09/20 14:00 Resp 20 12/09/20 14:00 BP 159/97 H 12/09/20 14:00 Pulse Ox 96 12/09/20 14:00 Oxygen Flow Rate 21 12/04/20 20:22 Body Mass Index 31.1 Const: General: alert Neck: Neck: Yes normal visual inspection, No full ROM and Yes other (Tracheostomy midline, but angled up. adjusted with wash cloth) Chest: Chest palpation & inspection: normal inspection of the chest Resp: Auscultation: diminished lung sounds Cardio: Rate: regular rate Rhythm: regular rhythm Heart sounds: S1 normal heart sound present and S2 normal heart sound present GI: Palpation (GI): Soft to palpation and nontender Auscultation: normal bowel sounds Skin: General skin exam: rashes and/or lesions noted Procedures Date of Service Date of Service: 12/09/20 Assessment and Plan Assessment and plan (1) Bilateral pneumonia: Problem details: Radiologically patient has consolidation of the right lower lobe and minimal infiltrate in the left lower lobe Patient has chronic mucus retention, Sputum culture growing Pseudomonas species, this is probably a chronic problem in his case. Recommend treating him with IV cefepime , for a course of 5-7 days. Status: Acute (2) Pneumothorax on right: Status: Acute (3) Acute on chronic respiratory failure with hypoxia: Problem details: Patient is the on vent support, 24 hours a day. Doing well on his current vent settings, and will continue to use the vent even at home. Status: Acute (4) ALS (amyotrophic lateral sclerosis): Problem details: Patient is being followed up at [facility] ALS clinic Status: Acute Assessment and Plan: Decrease VE with respiratory alkolosis Hold cough assist today cont levaquin x 14 days repeat CXR Time Spent With Patient Time: Total time spent is greater than 50% in coordination of care (as documented) at patient's floor/unit and/or counseling patient: Time with patient: 15 - 24 minutes Progress Note: Quality Stroke Does the patient have a stroke diagnosis?: No
--- NOTE | 2020-12-09 15:27 | MHC.CM.PN ---
Script for new tube feeds faxed to [facility] at [phone] as well as via [employer] in anticipation of d/c to home on 12/10. Clinical updates faxed to [facility], one of pt's covended [facility] services at [phone]. Confirmed receipt with Roc at [phone] and informed him of pt's tentative d/c date of 12/10. Will contact Roc via phone on 12/10 after ICU rounds to confirm d/c time so [facility] can initiate service intake. Updates sent to [facility] via [employer] in anticipation of 12/10 d/c to home. [facility] was in to pt's room to assist with new home vent settings - they will ensure pt's home vents are programmed in anticipation of pt's d/c. Updated pt's sister, Tanvir and pt on above plans. Pt will need ALS transport to return to home: This will be arranged on 12/10 once a d/c order has been placed.
[2020-12-09] MEDS: Metoclopramide HCl 5 MG TABLET PO ×2 (15:32→19:55)
--- NOTE | 2020-12-09 16:15 | P.PNCC_ITS ---
Subjective Subjective Date of Service: 12/09/20 Interval History: 34-year-old with a rapidly progressive form of AL S and his sole movement is with his eyes and that is how he communicates and presented with a community-acquired pneumonia and of course psych can not rule out aspiration as a potential mechanism but he is on home ventilator with a tracheostomy that did not have a inner cannula and apparently developed inspissated be secretions there creating a obstruction and he also had from the trauma of forced positive-pressure breathing with a bag mechanism a pneumothorax of about 10% and have pleuritic pain as well as hypoxemic respiratory failure from this pneumonia and apparently growing 2 species of Pseudomonas with a degree of susceptibility to cefepime which she has been on but seemingly more sensitive to Levaquin which I am adding as a short-term adjunct and possible l kye-term oral use at home The other problem is is that he is developing significant gastric residuals on his tube feedings and initially was nauseous with tube feedings until the elemental diet which was vital 1.5 was started in the nausea subsided but the residuals remained We offered the possibility of advancing a jejunal tube through the gastric tube and seeing if that would enable him to tolerate full nutritional volume that he needs because currently we reduced his volume but he is thinking about it at this point Critical Care Time (minutes): 45 Physical Exam Vital Signs: Vital Signs: Last Vital Signs Temp 98.1 F 12/09/20 16:00 Pulse 99 12/09/20 16:00 Resp 20 12/09/20 16:00 BP 165/105 H 12/09/20 16:00 Pulse Ox 94 12/09/20 16:00 Oxygen Flow Rate 21 12/04/20 20:22 Body Mass Index 31.1 Awake and alert an oriented and has absolutely no physical movement Abdomen is is soft with no organomegaly nontender Chest without adventitious sounds Cardiac exam without neck vein distension and good bilateral carotid upstrokes Skin is intact without breakdown Objective Data Labs CBC & Chem 7: 12/09/20 05:06 12/09/20 05:06 Labs: Laboratory Results - last 24 hr 12/09/20 12/09/20 12/09/20 05:06 05:06 05:11 WBC 9.4 RBC 4.21 L Hgb 12.2 L Hct 39.0 L MCV 92.6 MCH 29.0 MCHC 31.3 RDW 13.3 Plt Count 330 MPV 8.8 L Absolute Nucleated RBC 0.000 Nucleated RBC % (auto) 0.0 VBG pH 7.50 H VBG pCO2 35 VBG pO2 90 VBG HCO3 27 H VBG O2 Saturation 97.0 VBG Base Excess 4.9 Sodium 144 Potassium 4.4 Chloride 106 Carbon Dioxide 29 Anion Gap 13 BUN 9 Creatinine 0.42 L Estim Creat Clear Calc 273.6 Estimated GFR > 60 Random Glucose 101 Calcium 9.6 Phosphorus 3.6 Magnesium 2.1 Microbiology Microbiology Results: Microbiology 12/05/20 00:59 Sputum - Suctioned Gram Stain - Final 12/05/20 00:59 Sputum - Suctioned Sputum Culture - Final Pseudomonas aeruginosa#2 Pseudomonas aeruginosa 12/04/20 18:19 Blood - Venous Blood Culture - Preliminary No growth after 48 hours. 12/04/20 18:19 Blood - Venous Blood Culture - Preliminary No growth after 48 hours. Quality Stroke Does the patient have a stroke diagnosis?: No VTE Prior VTE?: No VTE Risk Level:: Medical - low VTE Device Contraindication: Treatment Not Indicated VTE Drug Contraindication: Treatment Not Indicated Progress Note: A&P Assessment and plan (1) Mucus plugging of bronchi: Status: Acute (2) Bilateral pleural effusion: Status: Acute (3) Bilateral pneumonia: Status: Acute (4) Pneumothorax on right: Status: Acute (5) Thrush, oral: Status: Acute (6) Acute on chronic respiratory failure with hypoxia: Status: Acute (7) Chronic hypoxemic respiratory failure: Status: Acute (8) ALS (amyotrophic lateral sclerosis): Status: Acute (9) Gastric atonia: Status: Acute Assessment and Plan: Offered placement of a jejunal feeding tube through the gastric tube which he is going to consider and were using Levaquin as an adjunct for his Pseudomonas respiratory infection
[2020-12-09] MEDS: diazePAM 2 MG TABLET 4 MG G-TUBE ×2 (17:00→19:54)
--- NOTE | 2020-12-09 17:25 | P.CNGI_ITS ---
History of Present Illness Data of Consult Service Date: 12/09/20 Primary Care Provider: Bindu Moncada MD HPI Reason for consult: high residuals 34-year-old male with hx of ALS s/p tracheostomy and G-tube in September 2020 at [facility] who I am seeing for assessment of high residuals with tube feeds. He initially presented with acute on chronic respiratory failure secondary vent issues. During his stay he was c/o nausea and was noted to have high residuals for which he was given a few doses of prn reglan and trial of elemental diet but still had high residuals. He has also been on narcotics with dilaudid and fentanyl patch. He denies fevers, worsening SOB, abdominal pain or reflux sx. Review of Systems Review of Systems: Yes all other systems are reviewed and are negative Constitutional: Constitutional: Reports no additional constitutional complaints and Denies night sweats Eyes: Eyes: Reports as per HPI ENT: Reports system reviewed and no additional complaints, except as document ed, Denies lip swelling and Denies tongue swelling Cardiovascular: Cardiovascular: Reports no additional cardiovascular complaints and Reports chest pain Respiratory: Respiratory: Reports as per HPI, Reports no additional respiratory complaints, Denies hemoptysis and Denies excessive phlegm production Gastrointestinal: Gastrointestinal: Reports no additional gastrointestinal complaints and Denies abdominal pain Genitourinary: Genitourinary: Reports no additional male genitourinary complaints Musculoskeletal: Musculoskeletal: Reports no additional musculoskeletal complaints Neurologic: Reports system reviewed and no additional complaints, except as documented Psychiatric: Psychiatric: Reports no additional psychiatric complaints Endocrine: Endocrine: Reports no additional endocrine complaints Allergic/Immunologic: Allergic/Immunologic: Denies lip swelling and Denies tongue swelling PMF Past Medical History Medical History (Updated 12/09/20 @ 16:21 by Lucila Smith MD) ALS (amyotrophic lateral sclerosis) Mucus plugging of bronchi Tracheostomy care Functional capacity: bed bound Social History Social History Currently Displaying Signs/Symptoms of Drug Intoxication Withdrawal: No Advance Directives: Yes Advance Directives on File: Yes Advance Directives Date on File: 12/04/20 Do you have thoughts of harming others: None Do you have a plan to hurt others: No Plan service: No Current occupational status: previously employed Meds Allergies Allergy/AdvReac Type Severity Reaction Status Date / Time succinylcholine Allergy Unknown Verified 12/04/20 17:26 Active Medications: Current Medications Acetaminophen (Acetaminophen Oral Liquid 650 Mg/20.3 Ml Solution) 650 mg G-TUBE Q4H PRN PRN Reason: Pain (Scale Score 1-3) Last Admin: 12/08/20 12:24 Dose: 650 mg Documented by: Albuterol/Ipratropium (Albuterol/Iprat 2.5/0.5mg 3 Ml Ampul.Neb) 3 ml INHALE RQ4H PRN PRN Reason: Shortness of Breath Last Admin: 12/06/20 13:59 Dose: 3 ml Documented by: Baclofen (Baclofen 10 Mg Tablet) 5 mg G-TUBE TID [facility] Last Admin: 12/09/20 15:32 Dose: 5 mg Documented by: Diazepam (Diazepam 2 Mg Tablet) 4 mg G-TUBE Q6H PRN PRN Reason: Muscle Spasm Last Admin: 12/09/20 17:00 Dose: 4 mg Documented by: Docusate Sodium (Docusate Sodium 100 Mg/10 Ml Liquid) 100 mg G-TUBE BID [facility] Last Admin: 12/09/20 09:13 Dose: 100 mg Documented by: Enoxaparin Sodium (Enoxaparin Sodium 40 Mg/0.4 Ml Syringe) 40 mg SUBCUT DAILY [facility] Last Admin: 12/09/20 07:48 Dose: 40 mg Documented by: Fentanyl (Fentanyl 100 Mcg Patch.Td72) 100 mcg TRANSDERMA Q3D [facility] Last Admin: 12/08/20 08:06 Dose: 100 mcg Documented by: Gabapentin (Gabapentin 600 Mg Tablet) 600 mg G-TUBE TID [facility] Last Admin: 12/09/20 15:31 Dose: 600 mg Documented by: Hydromorphone HCl (Hydromorphone Hcl 2 Mg Tablet) 2 mg G-TUBE Q3H PRN PRN Reason: Pain (Scale Score 4-6) Last Admin: 12/09/20 13:19 Dose: 2 mg Documented by: Cefepime HCl 2 gm/ Sodium (Chloride) 50 mls @ 100 mls/hr IV Q8H [facility] Last Infusion: 12/09/20 13:40 Dose: Infused Documented by: Levofloxacin (Levaquin) 750 mg in 150 mls @ 100 mls/hr IV Q24H [facility] Stop: 12/10/20 08:29 Last Infusion: 12/09/20 10:41 Dose: Infused Documented by: Lidocaine (Lidocaine 4 % Patch Adh..Patch) 1 patch TRANSDERMA DAILY [facility] Last Admin: 12/09/20 08:57 Dose: 1 patch Documented by: Metoclopramide HCl (Metoclopramide Hcl 5 Mg Tablet) 5 mg PO QID [facility] Last Admin: 12/09/20 15:32 Dose: 5 mg Documented by: Nicotine (Nicotine 14 Mg Patch.Td24) 14 mg TRANSDERMA DAILY [facility] Last Admin: 12/09/20 07:49 Dose: 14 mg Documented by: Nystatin (Nystatin Oral Susp 500,000 Unit/5 Ml Oral.Susp) 400,000 unit PO QID [facility]; Protocol Last Admin: 12/09/20 15:30 Dose: Not Given Documented by: Ondansetron HCl (Ondansetron Odt 4 Mg Tab.Rapdis) 4 mg TRANSLINGU Q6H PRN PRN Reason: Nausea Last Admin: 12/05/20 09:29 Dose: 4 mg Documented by: Ondansetron HCl (Ondansetron Hcl 4 Mg/2 Ml Vial) 4 mg IVPUSH Q4H PRN PRN Reason: Nausea Last Admin: 12/07/20 21:16 Dose: 4 mg Documented by: Oxycodone HCl (Oxycodone Hcl Immed Release 5 Mg Tablet) 20 mg G-TUBE Q3H PRN PRN Reason: Pain (Scale Score 4-6) Last Admin: 12/09/20 05:09 Dose: 20 mg Documented by: Pantoprazole Sodium (Pantoprazole Sodium 40 Mg/10 Ml Vial) 40 mg IVPUSH DAILY @0630 [facility] Last Admin: 12/09/20 04:53 Dose: 40 mg Documented by: Pharmacy Consult (Consult Rx Vancomycin Dosing) 1 each MISCELLANE DAILY PRN PRN Reason: Consult order Polyethylene Glycol (Polyethylene Glycol 3350 17 Gm Powd.Pack) 17 gm G-TUBE Q2D@0900 [facility] Last Admin: 12/08/20 08:02 Dose: 17 gm Documented by: Senna (Senna [place] Extract Oral Syrup 15 Ml Syrup) 15 ml G-TUBE BEDTIME PRN PRN Reason: Constipation Thiamine HCl (Thiamine Hcl 100 Mg Tablet) 100 mg G-TUBE DAILY [facility] Last Admin: 12/09/20 07:47 Dose: 100 mg Documented by: Trazodone HCl (Trazodone Hcl 50 Mg Tablet) 50 mg G-TUBE BEDTIME PRN PRN Reason: Sleep Vitamin D (Cholecalciferol (Vitamin D3) 25 Mcg Tablet) 25 mcg G-TUBE DAILY [facility] Last Admin: 12/09/20 07:47 Dose: 25 mcg Documented by: Zinc Sulfate (Zinc Sulfate 220 Mg Capsule) 220 mg G-TUBE DAILY [facility] Last Admin: 12/09/20 07:47 Dose: 220 mg Documented by: Home Medications Medication Instructions Recorded Confirmed Last Taken Type acetaminophen 500 mg/15 mL oral 650 mg FEEDING TUBE Q4H PRN 12/04/20 12/04/20 12/04/20 History liquid (Pain Relief Adult) albuterol sulfate 90 mcg/actuation 2 puff INHALATION Q6H 12/04/20 12/04/20 12/04/20 History aerosol inhaler baclofen 10 mg tablet 5 mg FEEDING TUBE Q8H 12/04/20 12/04/20 12/04/20 History cholecalciferol (vitamin D3) 25 1,000 unit FEEDING TUBE DAILY 12/04/20 12/04/20 12/04/20 History mcg (1,000 unit) tablet diazepam 5 mg/5 mL (1 mg/mL) oral 4 mg FEEDING TUBE Q6H PRN 12/04/20 12/06/20 12/04/20 History solution docusate sodium 50 mg/5 mL oral 100 mg FEEDING TUBE BID 12/04/20 12/04/20 Unknown History liquid (Silace) enoxaparin 40 mg/0.4 mL 40 mg SUBCUT DAILY 12/04/20 12/04/20 12/04/20 History subcutaneous syringe fentanyl 100 mcg/hr transdermal 1 patch TOPICAL Q3D 12/04/20 12/04/20 12/02/20 History patch gabapentin 250 mg/5 mL oral 600 mg FEEDING TUBE Q8H 12/04/20 12/04/20 12/04/20 History solution hydromorphone 1 mg/mL oral liquid 1.5 ml FEEDING TUBE Q3H PRN 12/04/20 12/04/20 12/04/20 History ipratropium bromide 17 2 puff INHALATION Q6H 12/04/20 12/04/20 12/04/20 History mcg/actuation HFA aerosol inhaler (Atrovent HFA) lidocaine 5 % topical patch 1 patch TOPICAL DAILY 12/04/20 12/04/20 12/04/20 History nicotine 14 mg/24 hr daily 1 patch TOPICAL DAILY 12/04/20 12/04/20 12/04/20 History transdermal patch nystatin 100,000 unit/mL oral 4 ml PO QID 12/04/20 12/04/20 12/04/20 History suspension ondansetron HCl 4 mg tablet 4 mg FEEDING TUBE Q6H PRN 12/04/20 12/04/20 12/04/20 History oxycodone 5 mg/5 mL oral solution 20 mg FEEDING TUBE Q3H PRN 12/04/20 12/04/20 12/04/20 History pantoprazole 40 mg tablet,delayed 1 tab PO DAILY 12/04/20 12/04/20 Unknown H istory release polyethylene glycol 3350 17 17 g FEEDING TUBE Q2D 12/04/20 12/04/20 12/04/20 History gram/dose oral powder sennosides 8.8 mg/5 mL oral syrup 5 - 10 ml FEEDING TUBE BEDTIME PRN 12/04/20 12/04/20 12/04/20 History (senna) thiamine mononitrate (vit B1) 100 100 mg FEEDING TUBE DAILY 12/04/20 12/04/20 12/04/20 History mg tablet (Vitamin B-1 (mononitrate)) trazodone 50 mg tablet 1 tab FEEDING TUBE BEDTIME PRN 12/04/20 12/04/20 Unknown History zinc sulfate 50 mg zinc (220 mg) 220 mg FEEDING TUBE DAILY 12/04/20 12/04/20 12/04/20 History capsule Physical Exam Vital Signs: Vital Signs: Last Vital Signs Temp 98.1 F 12/09/20 16:00 Pulse 102 H 12/09/20 17:00 Resp 20 12/09/20 17:00 BP 158/98 H 12/09/20 17:00 Pulse Ox 96 12/09/20 17:00 Oxygen Flow Rate 21 12/04/20 20:22 Body Mass Index 31.1 Const: General: cooperative, healthy appearing, comfortable, no acute distress, well developed and alert Nutritional Appearance: average body habitus and well nourished Orientation/consciousness: oriented to person, oriented to place, oriented to time and patient oriented x3 Limitations: no limitations and other limitations (ALS, communicates with computer device) HENMT: Head: Yes normal to inspection, Yes normocephalic and Yes atraumatic Mouth: Normal oral and palatal mucosa present Eyes: General: appearance normal, both eyes and all related structures Vi sual Hawk: normal visual hawk by confrontation Alignment and Position: alignment normal Periorbital: periorbital findings normal Conjunctivae: conjunctivae normal Sclerae: sclerae normal Pupils: Pupil accommodation reflex normal EOM: EOMs intact bilaterally Neck: Neck: Yes normal visual inspection, No full ROM, Yes no lymphadenopathy, Yes trachea midline, Yes supple, No lymphadenopathy, No tender, No tracheal deviation, Yes tracheostomy present and Yes other (Tracheostomy midline, but angled up. adjusted with wash cloth) Lymphatic: no lymphadenopathy noted Chest: Chest palpation & inspection: normal inspection of the chest, normal palpation of entire chest wall, no crepitus and no tenderness Resp: Other: tracheostomy in place Effort & Inspection: normal respiratory effort, not able to speak in complete sentences, normal respiratory pattern, no audible wheezes, no cough, no pursed lip breathing, no respiratory distress, no stridor, not tachypneic and no tracheal deviation Auscultation: clear to auscultation bilaterally and diminished lung sounds Cardio: Jugular venous distension: no JVD Palpation: normal PMI Rate: regular rate Rhythm: regular rhythm Heart sounds: S1 normal heart sound present, S2 normal heart sound present, no click, no gallops, no murmurs, no rubs and normal S1 and S2 GI: Other: 20 Fr G tube in place Inspection: Yes normal to inspection Palpation (GI): Soft to palpation, nontender and no masses Auscultation: normal bowel sounds : General: Yes no CVA tenderness Back/Spine/Pelvis: Back: no CVA tenderness Thoracic/Lumbar Spine: thoracic and lumbar spine normal to inspection Skin: General skin exam: rashes and/or lesions noted and dry skin Lesions: no lesions Rashes: no rashes Neuro: General: oriented to person, oriented to place, oriented to time and patient oriented x3 Motor exam (neuro): strength not 5/5 throughout Extrem: General: Yes normal to inspection, Yes capillary refill normal and Yes no clubbing, cyanosis or edema Psych: Appearance: grossly normal and well kempt Mental Status: mental status grossly normal Speech and movement: Normal speech and movement present and Clear speech present Affect: normal affect Attitude: cooperative Thought process: Normal thought process present Thought content: Normal thought content present Results Labs CBC & Chem 7: 12/09/20 05:06 12/09/20 05:06 Labs: Short CBC 12/09/20 Range/Units 05:06 WBC 9.4 (4.8-10.8) X10*3/uL Hgb 12.2 L (14.0-18.0) g/dl Hct 39.0 L (42-52) % Plt Count 330 (160-400) X10*3/uL BMP 12/09/20 05:06 Sodium 144 Potassium 4.4 Chloride 106 Carbon Dioxide 29 BUN 9 Creatinine 0.42 L Calcium 9.6 Microbiology Microbiology Results: Microbiology 12/05/20 00:59 Sputum - Suctioned Gram Stain - Final 12/05/20 00:59 Sputum - Suctioned Sputum Culture - Final Pseudomonas aeruginosa#2 Pseudomonas aeruginosa 12/04/20 18:19 Blood - Venous Blood Culture - Preliminary No growth after 48 hours. 12/04/20 18:19 Blood - Venous Blood Culture - Preliminary No growth after 48 hours. Assessment and Plan (1) Gastric atonia: Status: Acute 1/ High gastric residuals, suspect he has gastroparesis either from his underlying neurological disorder or from his narcotic needs or both. options include scheduled pro motility agent like reglan, motegrity along with movantik or relistor. If this fails then EGD to r/o GOO with possible placement of 9 Fr J tube thru the G tube. PLAN; 1/ Discussed with patient and he would like to try medical treatment and consider the other options as discussed 2/ recommend scheduled regaln 5 mg QID and can add relistor 12 mg once daily SQ. Would monitor QT with reglan and stop if any dystonia or tics JAIME Procedures Date of Service Date of Service: 12/09/20
--- NOTE | 2020-12-09 18:28 | PC.NURSE ---
Afebrile, vital signs stable. pt uses tablet with eye gaze to communicate. Vent settings remain the same, pt requests suctioning when needed, scant white inline secretions noted. mouth care given with moisturizer. inner canula changed 0800 residual 200ml. MD aware, hold tube feed, recheck at 1000, 1000 residuals 230. GI consulted, plan for reglan and slow increase of tube feedings. reglan started 1600 residual was 20, tube feeds started Vital 1.5 at 20ml/hr. u/o wnl, had 2 BM, bath given, pt repoed as wanted. prevalon mattress used, airtap bed used. Family updated at bedside throughout day.
[2020-12-09] MEDS: Lactated Ringers 1,000 ML 80 ML IVCONT (19:52)
[2020-12-09] MEDS: Lactated Ringers 500 ML 999 ML IV (19:53)
[2020-12-10] VITALS (34 sets, daily range): BP systolic 106–172; BP diastolic 69–104; PULSE 105–132; RESP 20–113; TEMP 36.6–37.7; O2SAT 89–98; BMI 30.8
[2020-12-10] MEDS: Ketorolac Tromethamine 15 MG/ML VIAL IVPUSH (00:05)
[2020-12-10] MEDS: cefEPime HCl 2 GM in 0.9 % Sodium Chloride 50 ML IV ×3 (03:43→19:44)
--- NOTE | 2020-12-10 03:49 | PC.NURSE ---
Tolerating TF (vital @ goal rate of 35 cc/hr) since 1999 with 0400 residual of 45cc.
[2020-12-10 05:23] LABS: VBG Base Excess 6.4 mmol/L; VBG HCO3 28 mmol/L (22-26); VBG pCO2 32 mmHg; VBG pH 7.54 (7.32-7.43); VBG pO2 96 mmHg
[2020-12-10 05:27] LABS: MANUAL DIFF FLAG NO
[2020-12-10 05:29] LABS: Venous Blood Gas Refer to POC result
[2020-12-10 05:30] LABS: Basophils Absolute Auto 0.1 X10*3/uL (0.0-0.2); Basophils Percent Auto 0.6 % (0-2); Eosinophils Absolute Auto 0.3 X10*3/uL (0.0-0.4); Eosinophils Percent Auto 2.7 % (0-4); Hematocrit 42.3 % (42-52); Hemoglobin 13.5 g/dl (14.0-18.0); Imm Gran Abs Auto 0.04 X10*3/uL (0.00-0.03); Imm Gran Pct Auto 0.4 % (0.0-0.4); Lymphocytes Absolute Auto 1.9 X10*3/uL (1.2-4.9); Lymphocytes Percent Auto 17.5 % (20-40); Mean Corpuscular HGB Conc 31.9 g/dl (31.0-36.0); Mean Corpuscular Hemoglobin 29.3 pg (27.0-33.0); Mean Platelet Volume 8.8 fL (9.4-12.4); Monocytes Absolute Auto 0.6 X10*3/uL (0.1-1.2); Monocytes Percent Auto 5.4 % (2-11); Neutrophils Absolute Auto 7.8 X10*3/uL (2.0-8.3); Neutrophils Percent Auto 73.4 % (45-73); Platelet Count 367 X10*3/uL (160-400); Red Cell Distribution Width 13.3 % (11.0-16.0); White Blood Count 10.7 X10*3/uL (4.8-10.8)
[2020-12-10 05:43] LABS: Anion Gap 12 (12-20); Blood Urea Nitrogen 9 mg/dL (9-16); Calcium 9.6 mg/dL (8.4-10.2); Carbon Dioxide 28 mmol/L (22-29); Chloride 107 mmol/L (96-108); Creatinine Clr Calc Pharmacy 289.1; Estimated Glomerular Filt Rate > 60; Glucose Random 115 mg/dL (60-115); Potassium 3.7 mmol/L (3.3-5.1); Sodium 143 mmol/L (135-145)
[2020-12-10] MEDS: Pantoprazole Sodium 40 MG/10 ML VIAL IVPUSH (06:08)
[2020-12-10] MEDS: levoFLOXacin/D5W 750 MG/150 ML PIGGYBACK 100 MG IV (06:08)
[2020-12-10] MEDS: Enoxaparin Sodium 40 MG/0.4 ML SYRINGE SUBCUT (08:30)
[2020-12-10] MEDS: Metoclopramide HCl 5 MG TABLET PO ×4 (08:31→19:44)
[2020-12-10] MEDS: Nicotine 14 MG PATCH.TD24 TRANSDERMA (08:31)
[2020-12-10] MEDS: Nystatin Oral Susp 500,000 UNIT/5 ML ORAL.SUSP 400000 UNIT PO ×3 (08:32→17:43)
[2020-12-10] MEDS: oxyCODONE HCl Immed Release 5 MG TABLET 20 MG G-TUBE ×2 (08:33→13:45)
[2020-12-10] MEDS: Zinc Sulfate 220 MG CAPSULE G-TUBE (08:33)
[2020-12-10] MEDS: Baclofen 10 MG TABLET 5 MG G-TUBE ×3 (08:34→19:43)
[2020-12-10] MEDS: diazePAM 2 MG TABLET 4 MG G-TUBE ×3 (08:35→19:44)
[2020-12-10] MEDS: Cholecalciferol (Vitamin D3) 25 MCG TABLET G-TUBE (08:35)
[2020-12-10] MEDS: Docusate Sodium 100 MG/10 ML LIQUID G-TUBE (08:35)
[2020-12-10] MEDS: Acetaminophen Oral Liquid 650 MG/20.3 ML SOLUTION G-TUBE ×3 (08:36→19:44)
[2020-12-10] MEDS: polyethylene glycoL 3350 17 GM POWD.PACK G-TUBE (08:36)
[2020-12-10] MEDS: Lidocaine 4 % Patch ADH..PATCH 1 PATCH TRANSDERMA (08:37)
[2020-12-10] MEDS: Thiamine HCL 100 MG TABLET G-TUBE (08:37)
[2020-12-10] MEDS: Gabapentin 600 MG TABLET G-TUBE ×3 (08:38→19:44)
--- NOTE | 2020-12-10 09:49 | MHC.CLN ---
F/U DISCUSSED WITH MD AT ROUNDS DR JUNIOR CONSULTED (SEE NOTE) DX GASTRIC ATONIA PT HAD LARGE BM; NOTED MULTIPLE PAIN MEDS MAY BE CONTRIBUTING TO CONSTIPATION AND INCREASED RESIDUALS REGLAN GIVEN & TF CURRENTLY RUNNING AT 35ML/HR WITH LOW RESIDUALS THE PLAN FOR TODAY IS TO INCREASE TF TO GOAL: VITAL 1.5 AT MAX GOAL RATE 65 ML/HR WITH 240CC FWF Q 4 HRS TO PROVIDE 2340 KCALS (25.7 KCALS/KG), 105 GRAMS PROTEIN (1.15 G/KG), AND 2632 ML TOTAL FREE WATER FROM FORMULA AND FLUSHES (29ML/KG) CONTINUE TO MONITOR TOLERANCE, RESIDUALS AND LYTES
--- NOTE | 2020-12-10 10:00 | P.PNPL_ITS ---
Subjective Subjective Date of Service: 12/10/20 Principal diagnosis: pneumonia/ mucous plugging Interval history: Patient was seen and examined. His vent was adjusted by decreasing the tidal volumes to 430 in the flow to 65 liters/minute. Will check a blood gas later on this morning. In the meantime his residual seem to be better on the current medical therapy. He is responding positively to the levofloxacin. Objective Data Labs CBC & Chem 7: 12/10/20 05:16 12/10/20 05:16 Labs: Laboratory Results - last 24 hr 12/10/20 12/10/20 12/10/20 05:16 05:16 05:16 WBC 10.7 RBC 4.60 Hgb 13.5 L Hct 42.3 MCV 92.0 MCH 29.3 MCHC 31.9 RDW 13.3 Plt Count 367 MPV 8.8 L Immature Gran % (Auto) 0.4 Neut % (Auto) 73.4 H Lymph % (Auto) 17.5 L [place] % (Auto) 5.4 Eos % (Auto) 2.7 Baso % (Auto) 0.6 Lymph # (Auto) 1.9 [place] # (Auto) 0.6 Eos # (Auto) 0.3 Baso # (Auto) 0.1 Abs Immat Gran (auto) 0.04 H Absolute Neuts (auto) 7.8 Absolute Nucleated RBC 0.000 Nucleated RBC % (auto) 0.0 VBG pH 7.54 H VBG pCO2 32 VBG pO2 96 VBG HCO3 28 H VBG O2 Saturation 99.0 VBG Base Excess 6.4 Sodium 143 Potassium 3.7 Chloride 107 Carbon Dioxide 28 Anion Gap 12 BUN 9 Creatinine 0.40 L Estim Creat Clear Calc 289.1 Estimated GFR > 60 Random Glucose 115 Calcium 9.6 Microbiology Microbiology Results: Microbiology 12/04/20 18:19 Blood - Venous Blood Culture - Final No growth after 5 days. 12/04/20 18:19 Blood - Venous Blood Culture - Final No growth after 5 days. 12/05/20 00:59 Sputum - Suctioned Gram Stain - Final 12/05/20 00:59 Sputum - Suctioned Sputum Culture - Final Pseudomonas aeruginosa#2 Pseudomonas aeruginosa Review of Systems Constitutional: Denies night sweats Denies change in voice, Denies lip swelling, Denies mouth pain and Denies tongue swelling Cardiovascular: Denies chest pain Respiratory: Reports cough Gastrointestinal: Denies abdominal pain Reports as per HPI Psychiatric: Reports anxiety Allergic/Immunologic: Denies lip swelling and Denies tongue swelling Physical Exam Vital Signs: Vital Signs: Last Vital Signs Temp 98.6 F 12/10/20 08:00 Pulse 110 H 12/10/20 09:00 Resp 20 12/10/20 09:00 BP 159/98 H 12/10/20 09:00 Pulse Ox 94 12/10/20 09:00 Oxygen Flow Rate 12/04/20 20:22 Body Mass Index 30.8 Const: General: alert Neck: Neck: Yes normal visual inspection and Yes tracheostomy present Chest: Chest palpation & inspection: normal inspection of the chest Resp: Auscultation: diminished lung sounds Cardio: Rate: regular rate Rhythm: regular rhythm Heart sounds: S1 normal heart sound present and S2 normal heart sound present GI: Palpation (GI): Soft to palpation and nontender Auscultation: normal bowel sounds Skin: General skin exam: rashes and/or lesions noted Procedures Date of Service Date of Service: 12/10/20 Assessment and Plan Assessment and plan (1) Bilateral pneumonia: Problem details: Radiologically patient has consolidation of the right lower lobe and minimal infiltrate in the left lower lobe Patient has chronic mucus retention, Sputum culture growing Pseudomonas species, this is probably a chronic problem in his case. Recommend treating him with IV cefepime , for a course of 5-7 days. Status: Acute (2) Pneumothorax on right: Status: Acute (3) Acute on chronic respiratory failure with hypoxia: Problem details: Patient is the on vent support, 24 hours a day. Doing well on his current vent settings, and will continue to use the vent even at home. 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
--- NOTE | 2020-12-10 12:18 | MHC.CM.PN ---
Per discussion with MD at rounds: pt will stay at [facility] until his tube feedings are better maximized and d/c on 12/12. D/C updates sent to [facility] and [facility] via phone call to [employer] clinical energy project manager at [phone]. [facility] will be able to start services on 12/11 for the overnight. Received correspondence from [facility] re: tube feeding: they do not have Vital 1.5 on hand and would like to substitute however, MD and RD documentation faxed to [facility] does not support this. [facility] will fax prior auth forms to CM for completion. Message left with pt's CCM Dmitra updating her on tentative d/c plans for 12/11. Met with pt and his sister at length to review d/c plan. Tanvir has been updating [facility] with d/c information. They have adjusted his home vent with his new settings. CM will follow
[2020-12-10 12:37] LABS: ABG Base Excess 4.8 mmol/L; ABG HCO3 32 mmol/L (22-26); ABG pCO2 57 mmHg (32-45); ABG pCO2 TC 59 mmHg (32-45); ABG pH 7.35 (7.35-7.45); ABG pH TC 7.34 (7.35-7.45); ABG pO2 80 mmHg (83-108); ABG pO2 TC 83 (83-108)
[2020-12-10] MEDS: Albuterol Sulfate 90 MCG 8 GM INHALER 2 PUFF INHALE ×3 (14:35→20:57)
[2020-12-10] MEDS: Ipratropium Bromide 1 PUFF/17 MCG INHALER 2 PUFF INHALE ×3 (14:36→20:57)
[2020-12-10] MEDS: Lactated Ringers 1,000 ML 80 ML IVCONT (14:36)
--- NOTE | 2020-12-10 14:42 | P.PNCC_ITS ---
Subjective Subjective Date of Service: 12/10/20 Interval History: 34-year-old male with ALS and completely lacking movement except for eyes through which he communicates who presented with a recurrence within 1 month of Pseudomonas pneumonia with right lower lobe consolidation He developed delayed gastric emptying and something of a clinical ileus and because of the opiates he was on he got 1 dose of methylnaltrexone with good affect and reduced residuals and a positive bowel movement and we rate able to restart his feedings at a lower rate but when we pushed up on the feedings and b ecause beyond 24 hours since methylnaltrexone residuals did climb and we had to withhold his feedings and restarted a lower rate Developed a sense of respiratory distress diaphoretic with tachycardia stat chest x-ray no pneumothorax no infiltrate and blood gas showed elevated pCO2 with an acute respiratory acidosis and a matching arterial pCO2 and end-tidal CO2 so is just simply seemed like he was hypoventilating and we did we increased tidal volume by 20% end-tidal CO2 came down to about 47-48 the expected response he subjectively improved heart rate initially over 130 came down to 120 oxygen saturations at 92% Critical Care Time (minutes): 45 Physical Exam Vital Signs: Vital Signs: Last Vital Signs Temp 99.8 F 12/10/20 12:00 Pulse 127 H 12/10/20 14:00 Resp 20 12/10/20 14:00 BP 147/91 H 12/10/20 14:00 Pulse Ox 95 12/10/20 14:00 Oxygen Flow Rate 21 12/04/20 20:22 Body Mass Index 30.8 Awake and oriented Objective Data Labs CBC & Chem 7: 12/10/20 05:16 12/10/20 05:16 Labs: Laboratory Results - last 24 hr 12/10/20 12/10/20 12/10/20 05:16 05:16 05:16 WBC 10.7 RBC 4.60 Hgb 13.5 L Hct 42.3 MCV 92.0 MCH 29.3 MCHC 31.9 RDW 13.3 Plt Count 367 MPV 8.8 L Immature Gran % (Auto) 0.4 Neut % (Auto) 73.4 H Lymph % (Auto) 17.5 L [place] % (Auto) 5.4 Eos % (Auto) 2.7 Baso % (Auto) 0.6 Lymph # (Auto) 1.9 [place] # (Auto) 0.6 Eos # (Auto) 0.3 Baso # (Auto) 0.1 Abs Immat Gran (auto) 0.04 H Absolute Neuts (auto) 7.8 Absolute Nucleated RBC 0.000 Nucleated RBC % (auto) 0.0 O2 Saturation ABG pH at Pt Temp ABG pH (Temp Correct) ABG pCO2 at Pt Temp ABG pCO2 (Temp Corrct ABG pO2 at Pt Temp ABG pO2 (Temp Correct ABG HCO3 ABG Base Excess (Actual) VBG pH 7.54 H VBG pCO2 32 VBG pO2 96 VBG HCO3 28 H VBG O2 Saturation 99.0 VBG Base Excess 6.4 Sodium 143 Potassium 3.7 Chloride 107 Carbon Dioxide 28 Anion Gap 12 BUN 9 Creatinine 0.40 L Estim Creat Clear Calc 289.1 Estimated GFR > 60 Random Glucose 115 Calcium 9.6 12/10/20 12:31 WBC RBC Hgb Hct MCV MCH MCHC RDW Plt Count MPV Immature Gran % (Auto) Neut % (Auto) Lymph % (Auto) [place] % (Auto) Eos % (Auto) Baso % (Auto) Lymph # (Auto) [place] # (Auto) Eos # (Auto) Baso # (Auto) Abs Immat Gran (auto) Absolute Neuts (auto) Absolute Nucleated RBC Nucleated RBC % (auto) O2 Saturation 94.0 ABG pH at Pt Temp 7.35 ABG pH (Temp Correct) 7.34 L ABG pCO2 at Pt Temp 57 H ABG pCO2 (Temp Corrct 59 H ABG pO2 at Pt Temp 80 L ABG pO2 (Temp Correct 83 ABG HCO3 32 H ABG Base Excess (Actual) 4.8 VBG pH VBG pCO2 VBG pO2 VBG HCO3 VBG O2 Saturation VBG Base Excess Sodium Potassium Chloride Carbon Dioxide Anion Gap BUN Creatinine Estim Creat Clear Calc Estimated GFR Random Glucose Calcium Microbiology Microbiology Results: Microbiology 12/04/20 18:19 Blood - Venous Blood Culture - Final No growth after 5 days. 12/04/20 18:19 Blood - Venous Blood Culture - Final No growth after 5 days. 12/05/20 00:59 Sputum - Suctioned Gram Stain - Final 12/05/20 00:59 Sputum - Suctioned Sputum Culture - Final Pseudomonas aeruginosa#2 Pseudomonas aeruginosa Quality Stroke Does the patient have a stroke diagnosis?: No VTE Prior VTE?: No VTE Risk Level:: Medical - low VTE Device Contraindication: Treatment Not Indicated VTE Drug Contraindication: Treatment Not Indicated Progress Note: A&P Assessment and plan (1) Tracheostomy care: Status: Acute (2) Gastric atonia: Status: Acute (3) Mucus plugging of bronchi: Status: Acute (4) Bilateral pleural effusion: Status: Acute (5) Bilateral pneumonia: Status: Acute (6) Pneumothorax on right: Status: Acute (7) Thrush, oral: Status: Acute (8) Acute on chronic respiratory failure with hypoxia: Status: Acute (9) Chronic hypoxemic respiratory failure: Status: Acute (10) ALS (amyotrophic lateral sclerosis): Status: Acute Assessment and Plan: So outside of increasing tidal volume by 20% to 500 cc watching the end-tidal CO2 correct no further changes are being made but I will do a a bedside echo
[2020-12-11] VITALS (20 sets, daily range): BP systolic 120–162; BP diastolic 64–96; PULSE 98–110; RESP 15–20; TEMP 36.6–37.3; O2SAT 93–100; BMI 31.2
[2020-12-11 01:15] LABS: ABG Refer to POC result
[2020-12-11] MEDS: cefEPime HCl 2 GM in 0.9 % Sodium Chloride 50 ML IV (03:44)
--- NOTE | 2020-12-11 04:21 | PC.NURSE ---
CARE ASSUMED 23:15..AWAKE..ALERT...NODS YES/NO TO QUESTIONS....COMMUNICATES [employer]IA [employer] CONTROLLED MESSAGE COMMUNICATION BOARD..EXTREMETIES FLACCID...RR CONTROLLED ON VENTILATOR VIA TRACH...SCANT TRACHEAL SECRETIONS...VITAL 55 CC/HR VIA PEG...RESIDUAL ASPIRATE 15-30 ML...[place] CATHETER RE-APPLIED AT AND COLLECTING YELLOW URINE...REFUSES PAIN MED OVERNIGHT...S.TACH HR 100'S..NO ECTOPY...FATHER AT BEDSIDE..RESTFUL OVERNIGHT
[2020-12-11] MEDS: Albuterol Sulfate 90 MCG 8 GM INHALER 2 PUFF INHALE ×4 (04:49→11:24)
[2020-12-11] MEDS: Ipratropium Bromide 1 PUFF/17 MCG INHALER 2 PUFF INHALE ×4 (04:49→11:24)
[2020-12-11 05:13] LABS: VBG Base Excess 4.6 mmol/L; VBG HCO3 27 mmol/L (22-26); VBG pCO2 35 mmHg; VBG pO2 92 mmHg
[2020-12-11] MEDS: diazePAM 2 MG TABLET 4 MG G-TUBE ×2 (05:24→10:59)
[2020-12-11] MEDS: Pantoprazole Sodium 40 MG/10 ML VIAL IVPUSH (05:25)
[2020-12-11 05:37] LABS: MANUAL DIFF FLAG NO
[2020-12-11 05:41] LABS: Basophils Percent Auto 0.4 % (0-2); Eosinophils Absolute Auto 0.4 X10*3/uL (0.0-0.4); Hematocrit 39.8 % (42-52); Hemoglobin 12.5 g/dl (14.0-18.0); Imm Gran Abs Auto 0.04 X10*3/uL (0.00-0.03); Imm Gran Pct Auto 0.4 % (0.0-0.4); Lymphocytes Absolute Auto 1.8 X10*3/uL (1.2-4.9); Lymphocytes Percent Auto 20.1 % (20-40); Mean Corpuscular HGB Conc 31.4 g/dl (31.0-36.0); Mean Corpuscular Hemoglobin 28.8 pg (27.0-33.0); Mean Corpuscular Volume 91.7 fL (80-98); Monocytes Absolute Auto 0.5 X10*3/uL (0.1-1.2); Monocytes Percent Auto 5.9 % (2-11); Neutrophils Absolute Auto 6.3 X10*3/uL (2.0-8.3); Neutrophils Percent Auto 69.2 % (45-73); Platelet Count 356 X10*3/uL (160-400); Red Blood Count 4.34 X10*6/uL (4.60-5.80); Red Cell Distribution Width 13.6 % (11.0-16.0); White Blood Count 9.1 X10*3/uL (4.8-10.8)
[2020-12-11 06:01] LABS: Anion Gap 14 (12-20); Blood Urea Nitrogen 12 mg/dL (9-16); Calcium 9.1 mg/dL (8.4-10.2); Carbon Dioxide 23 mmol/L (22-29); Chloride 108 mmol/L (96-108); Creatinine Clr Calc Pharmacy 298.4; Estimated Glomerular Filt Rate > 60; Glucose Random 114 mg/dL (60-115); Potassium 4.3 mmol/L (3.3-5.1); Sodium 141 mmol/L (135-145)
[2020-12-11 06:53] LABS: Venous Blood Gas Refer to POC result
[2020-12-11] MEDS: Baclofen 10 MG TABLET 5 MG G-TUBE (08:15)
[2020-12-11] MEDS: Cholecalciferol (Vitamin D3) 25 MCG TABLET G-TUBE (08:15)
[2020-12-11] MEDS: Zinc Sulfate 220 MG CAPSULE G-TUBE (08:15)
[2020-12-11] MEDS: Enoxaparin Sodium 40 MG/0.4 ML SYRINGE SUBCUT (08:16)
[2020-12-11] MEDS: Nicotine 14 MG PATCH.TD24 TRANSDERMA (08:16)
[2020-12-11] MEDS: Gabapentin 600 MG TABLET G-TUBE (08:16)
[2020-12-11] MEDS: Docusate Sodium 100 MG/10 ML LIQUID G-TUBE (08:16)
[2020-12-11] MEDS: Lidocaine 4 % Patch ADH..PATCH 1 PATCH TRANSDERMA (08:17)
[2020-12-11] MEDS: Metoclopramide HCl 5 MG TABLET PO (08:17)
[2020-12-11] MEDS: Thiamine HCL 100 MG TABLET G-TUBE (08:18)
[2020-12-11] MEDS: Nystatin Oral Susp 500,000 UNIT/5 ML ORAL.SUSP 400000 UNIT PO (08:18)
[2020-12-11] MEDS: fentaNYL 100 MCG PATCH.TD72 TRANSDERMA (08:25)
--- NOTE | 2020-12-11 09:54 | MHC.CLN ---
F/U LARGE BM 12/10, 12/11 TF VITAL 1.5 CURRENTLY RUNNING AT 55ML/HR WITH LOW RESIDUALS PROVIDES 1980KCALS (25KCALS/KG BASED ON CMW), 89G PROTEIN (1.1G/KG), 1488CC TOTAL WATER FROM FORMULA AND FLUSHES (19ML/KG) THE PLAN FOR TODAY IS TO INCREASE TF TO GOAL: VITAL 1.5 AT MAX GOAL RATE 65 ML/HR WITH 240CC FWF Q 4 HRS TO PROVIDE 2340 KCALS (25.7 KCALS/KG), 105 GRAMS PROTEIN (1.15 G/KG), AND 2632 ML TOTAL FREE WATER FROM FORMULA AND FLUSHES (29ML/KG) CONTINUE TO MONITOR TOLERANCE, RESIDUALS AND LYTES PT PENDING D/C HOME TODAY
--- NOTE | 2020-12-11 10:05 | PM.PNPUL ---
Subjective Subjective Date of Service: 12/11/20 Principal diagnosis: pneumonia/ mucous plugging Interval history: The patient was seen on exam. His ventilator had to be changed since he became hypercarbic and symptomatic. His end-tidal CO2 seems to be very much on par with his ABG. Therefore his settings were changed and his vent volumes were increased to 500 tidal volume. Seems to be tolerating it well. Tolerated the cough assist but feels like the pressure is too low. Will increase it to his baseline the level. The patient will be completed a course of antibiotics at home. In it looks like he will be going home today. I did send a prescription for his tracheostomy with her cannulas along with the new vent settings to his [employer] company. They had to come by in adjust the settings prior to him going home. Objective Data Labs CBC & Chem 7: 12/11/20 05:09 12/11/20 05:09 Labs: Laboratory Results - last 24 hr 12/10/20 12/11/20 12/11/20 12:31 05:07 05:09 WBC 9.1 RBC 4.34 L Hgb 12.5 L Hct 39.8 L MCV 91.7 MCH 28.8 MCHC 31.4 RDW 13.6 Plt Count 356 MPV 9.0 L Immature Gran % (Auto) 0.4 Neut % (Auto) 69.2 Lymph % (Auto) 20.1 [place] % (Auto) 5.9 Eos % (Auto) 4.0 Baso % (Auto) 0.4 Lymph # (Auto) 1.8 [place] # (Auto) 0.5 Eos # (Auto) 0.4 Baso # (Auto) 0.0 Abs Immat Gran (auto) 0.04 H Absolute Neuts (auto) 6.3 Absolute Nucleated RBC 0.000 Nucleated RBC % (auto) 0.0 O2 Saturation 94.0 ABG pH at Pt Temp 7.35 ABG pH (Temp Correct) 7.34 L ABG pCO2 at Pt Temp 57 H ABG pCO2 (Temp Corrct 59 H ABG pO2 at Pt Temp 80 L ABG pO2 (Temp Correct 83 ABG HCO3 32 H ABG Base Excess (Actual) 4.8 VBG pH 7.50 H VBG pCO2 35 VBG pO2 92 VBG HCO3 27 H VBG O2 Saturation 98.0 VBG Base Excess 4.6 Sodium Potassium Chloride Carbon Dioxide Anion Gap BUN Creatinine Estim Creat Clear Calc Estimated GFR Random Glucose Calcium 12/11/20 05:09 WBC RBC Hgb Hct MCV MCH MCHC RDW Plt Count MPV Immature Gran % (Auto) Neut % (Auto) Lymph % (Auto) [place] % (Auto) Eos % (Auto) Baso % (Auto) Lymph # (Auto) [place] # (Auto) Eos # (Auto) Baso # (Auto) Abs Immat Gran (auto) Absolute Neuts (auto) Absolute Nucleated RBC Nucleated RBC % (auto) O2 Saturation ABG pH at Pt Temp ABG pH (Temp Correct) ABG pCO2 at Pt Temp ABG pCO2 (Temp Corrct ABG pO2 at Pt Temp ABG pO2 (Temp Correct ABG HCO3 ABG Base Excess (Actual) VBG pH VBG pCO2 VBG pO2 VBG HCO3 VBG O2 Saturation VBG Base Excess Sodium 141 Potassium 4.3 Chloride 108 Carbon Dioxide 23 Anion Gap 14 BUN 12 Creatinine 0.39 L Estim Creat Clear Calc 298.4 Estimated GFR > 60 Random Glucose 114 Calcium 9.1 Microbiology Microbiology Results: Microbiology 12/04/20 18:19 Blood - Venous Blood Culture - Final No growth after 5 days. 12/04/20 18:19 Blood - Venous Blood Culture - Final No growth after 5 days. 12/05/20 00:59 Sputum - Suctioned Gram Stain - Final 12/05/20 00:59 Sputum - Suctioned Sputum Culture - Final Pseudomonas aeruginosa#2 Pseudomonas aeruginosa Review of Systems Constitutional: Denies night sweats Denies change in voice, Denies lip swelling, Denies mouth pain and Denies tongue swelling Cardiovascular: Denies chest pain Respiratory: Reports cough Gastrointestinal: Denies abdominal pain Reports as per HPI Psychiatric: Reports anxiety Allergic/Immunologic: Denies lip swelling and Denies tongue swelling Physical Exam Vital Signs: Vital Signs: Last Vital Signs Temp 98.7 F 12/11/20 08:00 Pulse 102 H 12/11/20 09:00 Resp 20 12/11/20 09:00 BP 147/87 H 12/11/20 09:00 Pulse Ox 95 12/11/20 09:00 Oxygen Flow Rate 21 12/04/20 20:22 Body Mass Index 31.2 Const: General: alert Neck: Neck: Yes normal visual inspection, Yes full ROM, Yes no lymphadenopathy and Yes trachea midline Chest: Chest palpation & inspection: normal inspection of the chest Resp: Auscultation: diminished lung sounds Cardio: Rate: regular rate Rhythm: regular rhythm Heart sounds: S1 normal heart sound present and S2 normal heart sound present GI: Palpation (GI): Soft to palpation and nontender Auscultation: normal bowel sounds Skin: General skin exam: rashes and/or lesions noted Procedures Date of Service Date of Service: 12/11/20 Assessment and Plan Assessment and plan (1) Tracheostomy care: Status: Acute (2) Acute on chronic respiratory failure with hypoxia: Status: Acute (3) ALS (amyotrophic lateral sclerosis): Problem details: Patient is being followed up at [facility] ALS clinic Status: Acute (4) Pneumothorax on right: Status: Acute (5) Bilateral pneumonia: Status: Acute Assessment and Plan: Continue vent settings. We will make sure his respiratory company sets up his on ventilator read the same settings Will need an outpatient ABG Needs to set up with tracheostomy clinic or otherwise will change it in our office Tracheostomy and trach supplies sent to his DME company Continue cough assist at the normal pressures as tolerated Will follow-up in 1-2 weeks with a virtual visit with the pulmonary office Time Spent With Patient Time: Total time spent is greater than 50% in coordination of care (as documented) at patient's floor/unit and/or counseling patient: Time with patient: Greater than 35 minutes Progress Note: Quality Stroke Does the patient have a stroke diagnosis?: No
--- NOTE | 2020-12-11 10:59 | MHC.CM.PN ---
Addendum entered by Debi Carey 12/11/20 13:55: Pt ready to d/c to home w/new VNA services through [facility] and [facility]: [facility] continues to work on staffing but will contact family when they have vent trained staff. Bharathi from [facility] will meet pt and [facility] at pt's home: [facility] will delivery new tube feeding on 12/12, new trach supplies to arrive on 12/13 from [facility]. All scripts (5 total) faxed to [facility] on [address] [facility] [address] for family to sisal picker later today. D/C Summary faxed to [facility], [facility] and pt's CCM, Ludwin. Pt will receive a call from [facility] for follow up as confirmed by Dr. Perez ([facility] insurance account specialist). Family aware and in agreement of above. Original Note: Met with pt, sister/HCP Tanvir and pt's father extensively to review d/c plans: pt will be transported via [facility] today at noon. [facility] will use their vent with pt's settings pre programmed. RACHELE Garvin from pt's respiratory vendor, [facility], will meet pt and [facility] at pt's home today after noon to assist with the transition of vents. Pt's scripts for po Levaquin and Relistor prefilled syringes faxed to [facility]. of note, Relistor is a special order med and may require 1-2 days for availability. Pt will take this on a prn basis for constipation. Instructed Tanvir that prefilled syringes are not pt's dose: she will need to use 1/2 of the syringe only. 12mg prefilled - 1/2 = 6mg pt dose. She verbalized understanding. Call placed to [facility] pulmonary office to correct pt address on respiratory script for vent and trach supplies. This will be faxed to [facility] today per office. Confirmed with Ames that pt's Vital 1.5 GT feed will be delivered to pt's home on , 12/12. Pt will be sent home with 3 bottles and tubing in case there is an unforseen delay. Pt was also given 4 disposable inner trach cannulas should his respiratory supplies, which are scheduled for home delivery on 12/13, be delayed. CM is waiting for d/c summary to fax to [facility] for 12/10 telephone call confirmed start of services this evening as well as to [facility] for covended services to begin this week. D/C summary will also be faxed to pt's community service patrol officer, Ludwin.
[2020-12-11] MEDS: oxyCODONE HCl Immed Release 5 MG TABLET 20 MG G-TUBE (11:37)
--- NOTE | 2020-12-11 12:45 | PM.DS ---
DS: Providers Provider Date of Service: 12/11/20 Date of admission: 12/04/20 20:22 Date of discharge: 12/11/20 Primary care physician: Bindu Moncada MD Admitting clinician: Cesario Jarrett Attending physician on admission: Cesario Jarrett Consults: 12/04/20 22:41 Consult to Pulmonology Stat Consulting Provider: Ladarius Perez Reason for consultation: pt of yours, ALS with trach, has b/l pna, pleural effusions & pneumothorax 12/04/20 23:12 Consult to Thoracic Surgery Stat Consulting Provider: Marlon Luong Reason for consultation: pneumothorax & trach issues Has provider been notified: Yes 12/09/20 06:36 Consult to Pulmonology Routine Consulting Provider: Ladarius Perez Reason for consultation: pneumonia Has provider been notified: Yes 12/10/20 06:19 Consult to Pulmonology Routine Consulting Provider: Ladarius Perez Reason for consultation: neuromuscular disease Has provider been notified: Yes Attending physician on discharge: Lucila Smith Discharging clinician: Lucila Smith DS: Diagnosis Discharge Diagnosis (1) Tracheostomy care: Status: Acute (2) Acute on chronic respiratory failure with hypoxia: Status: Acute (3) ALS (amyotrophic lateral sclerosis): Status: Acute (4) Pneumothorax on right: Status: Acute (5) Bilateral pneumonia: Status: Acute DS: Summary Hospital Course Hospital Course: 34-year-old with a ALS who is only movement is eye movement through which he communicates as well admitted with acute hypoxic respiratory failure due to bilateral pneumonia from Pseudomonas and was moderately sensitive to cefepime which he received for 1 week and for 2 days of which he had IV Levaquin as an adjunct and tolerated and because of sensitivity to Levaquin he will continue that p.o. at home for 1 more week Ventilator has been adjusted to the patient's comfort and tidal volume giving him comfort was 500 cc with no air hunger and he is down to just room air with FiO2 of 21% Because of chronic opiate dependence for pain he requires methyl naltrexone to aid it in bowel movement and avoid obstipation and also to avoid an atonic gastric problem so he can tolerate his feedings at the goal rate of 65 cc/hour and that is vital 1.5 Pulmonary consult prescribing his tracheostomy with inner cannula and the cleaning and replacing frequency and process Home ventilator and respiratory services as well as visiting nurse services all in place Time spent discussing smoking cessation with patient: 3 to 10 minutes Status at Discharge Functional status at discharge: bed bound Overall status at discharge: patient is back to baseline Time Spent with Patient Time attestation: Total time spent providing and/or coordinating discharge services: Discharge coordination time: Greater than 30 minutes Quality: Stroke Does the patient have a stroke diagnosis?: No Physical Exam Vital Signs: Vital Signs: Last Vital Signs Temp 99.1 F 12/11/20 12:00 Pulse 108 H 12/11/20 12:00 Resp 15 12/11/20 12:00 BP 162/64 H 12/11/20 12:00 Pulse Ox 100 12/11/20 12:00 Oxygen Flow Rate 21 12/04/20 20:22 Body Mass Index 31.2 Alert and oriented and ventilator dependent due to chronic neuromuscular disease Excellent lab work including blood gas and perfectly compensated and last chest x-ray perfectly clear and no adventitious sounds Abdomen benign soft with good bowel sounds and no organomegaly Cardiac exam with normal sinus rhythm and no gallops no murmurs and good bilateral carotid upstrokes Skin intact DS: Data Data Completed and Pending Labs on day of discharge: Laboratory Results - last 24 hr 12/11/20 12/11/20 12/11/20 05:07 05:09 05:09 WBC 9.1 RBC 4.34 L Hgb 12.5 L Hct 39.8 L MCV 91.7 MCH 28.8 MCHC 31.4 RDW 13.6 Plt Count 356 MPV 9.0 L Immature Gran % (Auto) 0.4 Neut % (Auto) 69.2 Lymph % (Auto) 20.1 [place] % (Auto) 5.9 Eos % (Auto) 4.0 Baso % (Auto) 0.4 Lymph # (Auto) 1.8 [place] # (Auto) 0.5 Eos # (Auto) 0.4 Baso # (Auto) 0.0 Abs Immat Gran (auto) 0.04 H Absolute Neuts (auto) 6.3 Absolute Nucleated RBC 0.000 Nucleated RBC % (auto) 0.0 VBG pH 7.50 H VBG pCO2 35 VBG pO2 92 VBG HCO3 27 H VBG O2 Saturation 98.0 VBG Base Excess 4.6 Sodium 141 Potassium 4.3 Chloride 108 Carbon Dioxide 23 Anion Gap 14 BUN 12 Creatinine 0.39 L Estim Creat Clear Calc 298.4 Estimated GFR > 60 Random Glucose 114 Calcium 9.1 Discharge Plan Discharge Anticipated Discharge Date/Time: 12/11/20 12:09 Patient Disposition: Home Health Service Discharge Diagnosis: Acute hypoxemic respiratory failure from Pseudomonas pneumonia Referrals: [facility] [Outside] - 1 Week Bindu Moncada MD [Primary Care Provider] - 1 Week Discharge Medications: New levofloxacin 750 mg Tablet 750 mg PO Q24H 7 Days Qty: 7 RF: 0 albuterol sulfate [Ventolin HFA] 90 mcg/actuation Hfa Aerosol Inhaler 2 puff inhalation RQ4H 30 Days RF: 0 Atrovent HFA 17 mcg/actuation Hfa Aerosol Inhaler 2 puff inhalation RQ4H 30 Days RF: 0 diazepam 2 mg Tablet 4 mg G-tube Q6H PRN (Reason: Muscle Spasm) Qty: 240 RF: 0 Relistor 8 mg/0.4 mL Syringe 8 mg subcut Q2D PRN (Reason: Constipation) 30 Days Qty: 5.6 RF: 0 Continued docusate sodium [Silace] 50 mg/5 mL liquid 100 mg feeding tube BID RF: 0 nystatin 100,000 unit/mL suspension 4 ml PO QID RF: 0 nicotine 14 mg/24 hr patch 24 hour 1 patch topical DAILY RF: 0 trazodone 50 mg tablet 1 tab feeding tube BEDTIME PRN (Reason: Sleep) RF: 0 ondansetron HCl 4 mg tablet 4 mg feeding tube Q6H PRN (Reason: Nausea) RF: 0 oxycodone 5 mg/5 mL solution 20 mg feeding tube Q3H PRN (Reason: Pain (Scale Score 4-6)) RF: 0 gabapentin 250 mg/5 mL solution 600 mg feeding tube Q8H RF: 0 sennosides [senna] 8.8 mg/5 mL syrup 5 - 10 ml feeding tube BEDTIME PRN (Reason: Constipation) RF: 0 diazepam 5 mg/5 mL (1 mg/mL) solution 4 mg feeding tube Q6H PRN (Reason: Muscle Spasm) RF: 0 fentanyl 100 mcg/hr patch 72 hour 1 patch topical Q3D RF: 0 baclofen 10 mg tablet 5 mg feeding tube Q8H RF: 0 pantoprazole 40 mg tablet,delayed release (DR/EC) 1 tab PO DAILY RF: 0 lidocaine 5 % adhesive patch,medicated 1 patch topical DAILY RF: 0 polyethylene glycol 3350 17 gram/dose powder 17 g feeding tube Q2D RF: 0 albuterol sulfate 90 mcg/actuation HFA aerosol inhaler 2 puff inhalation Q6H RF: 0 acetaminophen [Pain Relief Adult] 500 mg/15 mL liquid 650 mg feeding tube Q4H PRN (Reason: Pain (Scale Score 1-3)) RF: 0 enoxaparin 40 mg/0.4 mL syringe 40 mg subcut DAILY RF: 0 Atrovent HFA 17 mcg/actuation HFA aerosol inhaler 2 puff inhalation Q6H RF: 0 zinc sulfate 50 mg zinc (220 mg) capsule 220 mg feeding tube DAILY RF: 0 cholecalciferol (vitamin D3) 25 mcg (1,000 unit) tablet 1,000 unit feeding tube DAILY RF: 0 thiamine mononitrate (vit B1) [Vitamin B-1 (mononitrate)] 100 mg tablet 100 mg feeding tube DAILY RF: 0 Discontinued hydromorphone 1 mg/mL liquid 1.5 ml feeding tube Q3H PRN (Reason: Pain (Scale Score 4-6)) RF: 0 Discharge Orders: Discharge Order (Routine); Ordered 12/11/20 Ordered By: Lucila Smith Diet: other Activity on Discharge: As tolerated Stand Alone Forms: Patient Portal Discharge page Care Plan Goals: Follow plan of care Health Concerns: ALS Plan of Treatment: One week of p.o. Levaquin Assessment: Resolving pneumonia and respiratory insufficiency
== END 2020-12-11 12:54 | disposition home health service (06) | DRG 130 ==
LOC: HO.ED 20:02 → HO.EDOVER 20:47 → HO.ICU 22:27
PROVIDERS: Anesthesiology; Admitting Provider Physician Assistant; Emergency Provider Internal Medicine; PCP Pediatrics; Visit Provider Internal Medicine Cardiovascular Disease
DX: J95.03 Malfunction of tracheostomy stoma (principal); J15.1 Pneumonia due to Pseudomonas; J91.8 Pleural effusion in other conditions classified elsewhere; T17.590A Other foreign object in bronchus causing asphyxiation, initial encounter; J96.21 Acute and chronic respiratory failure with hypoxia; G12.21 Amyotrophic lateral sclerosis; B37.0 Candidal stomatitis; J93.9 Pneumothorax, unspecified; R91.8 Other nonspecific abnormal finding of lung field; K31.89 Other diseases of stomach and duodenum; X58.XXXA Exposure to other specified factors, initial encounter; Z99.81 Dependence on supplemental oxygen; Z20.822 Contact with and (suspected) exposure to COVID-19; Z79.891 Long term (current) use of opiate analgesic; Z79.899 Other long term (current) drug therapy
CPT/HCPCS: 36415; 36600; 70490; 71045; 71250; 76604; 80048; 80076; 81003; 82040; 82803; 82947; 83605; 83735; 83880; 84100; 84145; 84484; 85025; 85027; 87040; 87070; 87077; 87186; 87205; 87635; 93005; 93970; 94002; 94003; 94640; 94799; 99284; 99285; J0692; J1650; J1885; J1940; J1956; J2212; J2405; J2543; J2765; J3010; J3370; J3475

== ENCOUNTER → 2020-12-26 10:13 | Outpatient (BNVA) | payer BC, MEDICARE, MEDICAID, SELFPAY | PROVIDERS: PCP Pediatrics; Visit Provider Hospitalist ==

== ENCOUNTER → 2021-02-11 09:40 | Outpatient (BNVA) | payer BC, MEDICARE, MEDICAID, SELFPAY | PROVIDERS: PCP Pediatrics; Visit Provider Hospitalist ==

== ENCOUNTER 2021-04-01 11:03 | Emergency (ER) | payer BC, MEDICARE, MEDICAID, SELFPAY ==
[2021-04-01] VITALS (13 sets, daily range): BP systolic 103–135; BP diastolic 72–86; PULSE 70–81; RESP 16–18; TEMP 32–37.1; O2SAT 98–100; BMI 30.4
--- NOTE | ~2021-04-01 | CT_ITS ---
EXAMINATION: CT HEAD WITHOUT CONTRAST CLINICAL INFORMATION: Confusion COMPARISON: None TECHNIQUE: Contiguous axial imaging was performed from the skull base to vertex without intravenous administration of contrast. Coronal and sagittal reformatted images are performed at CT scanner This CT examination was performed using dose optimization techniques as appropriate, variously including the following: *Automated exposure control *Adjustment of mA and/or kV according to patient size (this includes techniques or standardized protocols for targeted exams where dose is matched to indication/reason for exam; i.e. extremities or head) *Use of iterative reconstruction technique DLP: 5.12+688.65 mGy-cm FINDINGS: There is no evidence of acute intracranial hemorrhage or territorial infarction. No abnormal mass effect or midline shift is seen. Kruger to white matter differentiation is well preserved. No extra-axial fluid collections are identified. The ventricles are normal in size. There is no abnormal attenuation within the brain parenchyma. The osseous structures and soft tissues are normal. The mastoid air cells and visualized portions of the paranasal sinuses are well aerated. CT/CT head/brain wo con IMPRESSION: No acute intracranial pathology.
--- NOTE | ~2021-04-01 | CT_ITS ---
EXAMINATION: CT CHEST, ABDOMEN AND PELVIS WITHOUT CONTRAST CLINICAL INFORMATION: Pneumonia. Abdominal pain and distention. COMPARISON: Chest x-ray 04/01/2021. CT of chest 12/08/2020, 12/04/2020 TECHNIQUE: Multidetector volumetric CT imaging of the chest, abdomen and pelvis was obtained without oral or intravenous contrast. Coronal and sagittal reformatted images are performed at CT scanner [This CT examination was performed using dose optimization techniques as appropriate, variously including the following: *Automated exposure control *Adjustment of mA and/or kV according to patient size (this includes techniques or standardized protocols for targeted exams where dose is matched to indication/reason for exam; i.e. extremities or head) *Use of iterative reconstruction technique] DLP: 7.31+7.31+532.95+1443.79 mGy-cm. FINDINGS: CT CHEST: Lungs: There is dense consolidation at the dependent lung bases bilateral, worse on the right. There are air bronchograms at the right posterior lobe. Severity of airspace disease is unchanged since CAT scan of 12/04/2020. There is no new airspace opacity. Endotracheal tube in place. Mediastinum: There is no mediastinal mass. No significant lymphadenopathy. The heart size is normal. No pericardial effusion. Thyroid is unremarkable. Pleura: Small dependent bilateral pleural effusions. Axilla: No lymphadenopathy. CT ABDOMEN AND PELVIS: Liver, Gallbladder and Biliary Tree: The liver is normal in size, shape, and attenuation. No focal hepatic lesion or biliary ductal dilatation is present. The gallbladder is unremarkable with no evidence of radiopaque gallstones, gallbladder wall thickening, or obvious pericholecystic inflammatory changes. Pancreas: No acute change of the pancreas. No mass. No pancreatic duct dilatation. Spleen: Spleen normal in size and contour. No focal lesion. Adrenal Glands: Adrenal glands are normal in size. No focal mass. Kidneys and Ureters: The kidneys are normal in size, shape, and attenuation. No hydronephrosis, hydroureter, or calculi seen. No perinephric stranding. Bladder: Unremarkable. Gastrointestinal Tract: There are scattered diverticula of the colon. There is no diverticulitis. There is no bowel wall thickening /edema. There is no bowel obstruction. There is a moderate to large volume of stool in the colon. The appendix is surgically absent . The small bowel loops are unremarkable. Percutaneous gastrotomy tube in place. There is no hiatal hernia. Rectal probe in place. Mesentery: No focal inflammation. No free fluid. No free air. Abdominal Wall: No significant hernia is appreciated. Lymph Nodes: Normal. Vascular: Unremarkable. Pelvic Viscera: Unremarkable. Osseous Structures: Unremarkable. CT/CT abdomen pelvis wo con IMPRESSION: 1. Chronic consolidation at dependent lung bases, right greater than left unchanged since 12/04/2020. 2. Small bilateral pleural effusions. 3. Large volume of stool in the colon. Percutaneous gastrotomy catheter. No acute change of the bowel. 4. No acute abnormality the abdomen or the pelvis.
--- NOTE | ~2021-04-01 | XR_ITS ---
EXAMINATION: XR CHEST CLINICAL INFORMATION: Fever COMPARISON: Previous chest x-ray November 2020 TECHNIQUE: Frontal view of the chest was obtained. FINDINGS: There is a tracheostomy tube with tip 5 cm above the julissa. The cardiac and mediastinal contours are stable. There are increased markings at the right lung base questionable for right lower lobe atelectasis or pneumonia. The lungs are otherwise clear. There is no pleural effusion or pneumothorax. Bony structures are unremarkable. There is a G-tube. XR/XR chest 1V IMPRESSION: Question right lower lobe pneumonia.
--- NOTE | ~2021-04-01 | MR_ITS ---
EXAMINATION: MR BRAIN WITHOUT CONTRAST CLINICAL INFORMATION: Delirium. COMPARISON: CT head from 04/01/2021. TECHNIQUE: MRI of the brain was obtained using routine sequences without contrast. FINDINGS: No focal restricted diffusion is demonstrated to suggest acute or subacute cerebral ischemia. No evidence of acute or chronic hemorrhagic products on heme-sensitive imaging. Few nonspecific scattered periventricular and deep white matter T2 FLAIR hyperintensities. No additional parenchymal signal abnormalities. The ventricles are normal in morphology and size. No abnormal mass effect. No midline shift. Normal appearance of the pituitary gland. Normal positioning of the cerebellar tonsils. Normal arterial and venous vascular flow voids are present. Tracheostomy tube in place. Normal, homogeneous marrow signal. Moderate mucosal thickening of the right maxillary sinus. Mild mucosal thickening of the remaining paranasal sinuses. Moderate rightward nasal septal deviation. Small volume fluid layering within the pharynx. No prominent bilateral mastoid effusions. MR/MR head/brain wo con IMPRESSION: 1. No acute intracranial abnormalities. 2. Minimal nonspecific white matter changes. 3. No additional MRI abnormalities to explain the patient's symptoms.
--- NOTE | 2021-04-01 11:44 | ED_ITS ---
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 He was on intermittent BiPAP as of March of 2020. By September use ventilator dependent With a feeding tube. He was hospitalized here in November with pneumonia. He recently has been treated for urinary tract infection by his PCP. Urinalysis with cultures and sensitivities were sent 4 days ago. Over the last 2 days, however, his abdomen has been getting distended. No nausea vomiting or diarrhea. But per his fiancee his stools have been more ?sticky than normal. But no melena. No significant fevers. No history of abdominal surgeries other than his feeding tube He has a [place] catheter. Other symptoms significant for hallucinating. He typically can use is eyes 2 type within accommodating keyboard, but lately has been too confused. This is been going on over the last several days and so far has been attributed to the urinary tract infection He typically gets all of his care in home Related Data Home Medications Medication Instructions Recorded Confirmed acetaminophen 500 mg/15 mL oral 500 mg FEEDING TUBE Q4H PRN 12/04/20 04/01/21 liquid (Pain Relief Adult) albuterol sulfate 90 mcg/actuation 2 puff INHALATION Q6H 12/04/20 04/01/21 aerosol inhaler baclofen 10 mg tablet 5 mg FEEDING TUBE Q8H 12/04/20 04/01/21 diazepam 5 mg/5 mL (1 mg/mL) oral 4 mg FEEDING TUBE Q6H PRN 12/04/20 04/01/21 solution docusate sodium 50 mg/5 mL oral 100 mg FEEDING TUBE BID 12/04/20 04/01/21 liquid (Silace) enoxaparin 40 mg/0.4 mL 40 mg SUBCUT DAILY 12/04/20 04/01/21 subcutaneous syringe fentanyl 100 mcg/hr transdermal 1 patch TOPICAL Q72H 12/04/20 04/01/21 patch gabapentin 250 mg/5 mL oral 600 mg FEEDING TUBE Q8H 12/04/20 04/01/21 solution lidocaine 5 % topical patch 1 - 3 patch TOPICAL DAILY 12/04/20 04/01/21 oxycodone 5 mg/5 mL oral solution 10 - 20 mg FEEDING TUBE Q3H PRN 12/04/20 04/01/21 polyethylene glycol 3350 17 17 g FEEDING TUBE DAILY 12/04/20 04/01/21 gram/dose oral powder sennosides 8.8 mg/5 mL oral syrup 5 - 10 ml FEEDING TUBE BEDTIME PRN 12/04/20 04/01/21 (senna) thiamine mononitrate (vit B1) 100 100 mg FEEDING TUBE DAILY 12/04/20 04/01/21 mg tablet (Vitamin B-1 (mononitrate)) trazodone 50 mg tablet 1 tab FEEDING TUBE BEDTIME PRN 12/04/20 04/01/21 zinc sulfate 50 mg zinc (220 mg) 220 mg FEEDING TUBE DAILY 12/04/20 04/01/21 capsule bupropion HCl 100 mg tablet 150 mg PO BID 12/26/20 04/01/21 famotidine 20 mg tablet 20 mg PO BID 12/26/20 04/01/21 fluconazole 40 mg/mL oral 100 mg FEEDING TUBE DAILY 12/26/20 04/01/21 suspension Lactobacil rhamnosus GG 10 billion 1 tab PO BID 02/11/21 04/01/21 cell-inulin 200 mg chewable tablet ([facility]) simethicone 40 mg/0.6 mL oral 0.9 ml PO TID PRN 02/11/21 04/01/21 drops,suspension (Infants Simethicone) bismuth subsalicylate 262 mg/15 mL 262 mg PO Q4H PRN 04/01/21 04/01/21 oral suspension (Pepto-Bismol) cefdinir 250 mg/5 mL oral 300 mg FEEDING TUBE BID 04/01/21 04/01/21 suspension cholecalciferol (vitamin D3) 50 50 mcg FEEDING TUBE DAILY 04/01/21 04/01/21 mcg (2,000 unit) capsule (Vitamin D3) ipratropium bromide 17 2 puff INHALATION Q6H 04/01/21 04/01/21 mcg/actuation HFA aerosol inhaler (Atrovent HFA) methylnaltrexone 8 mg/0.4 mL 4 - 8 mg SUBCUT DAILY PRN 04/01/21 04/01/21 subcutaneous syringe (Relistor) nicotine 7 mg/24 hr daily 1 patch TRANSDERMAL DAILY 04/01/21 04/01/21 transdermal patch ondansetron HCl 4 mg/5 mL oral 4 mg PO Q4H PRN 04/01/21 04/01/21 solution Allergies Allergy/AdvReac Type Severity Reaction Status Date / Time succinylcholine Allergy Severe Cardiac Verified 02/11/21 09:41 Arrest Review of Systems Comments: No significant fevers. Temperature is ranging around 98 Comments: No known chest pain Comments: No cough or change in ventilatory status Comments: Abdominal distension and discomfort as noted Comments: Recent urinary tract infection Comments: No rash or breakdown Comments: Advanced ALS, trach dependent. Recent hallucinations and confusion Physical Exam Vital Signs: Vital Signs: Last Vital Signs Temp 97.9 F 04/01/21 18:29 Pulse 75 04/01/21 18:29 Resp 16 04/01/21 18:29 BP 132/86 04/01/21 18:29 Pulse Ox 100 04/01/21 18:29 BMI result Body Mass Index 30.4 Const: Other: Patient is awake. Able to answer yes and no questions with small head movements and eye movements HENMT: Other: Tracheostomy tube is in place. Surrounding skin is clean dry and intact without infection Resp: Other: Ventilated. Good air movement bilaterally Cardio: Other: Regular rate and rhythm GI: Other: Abdomen is firm but not rigid. Distended. Tympanitic. Skin: Other: No obvious breakdown or rash Neuro: Other: No voluntary movements other than small head movements and eye movements Extrem: Other: No obvious trauma Course Course Course Narrative: Patient with abdominal pain and distension. Intra-abdominal infection or abscess Perforated viscus Appendicitis Cholecystitis Urinary tract infection Pancreatitis 13:21. On straight catheterization for urine, patient put out 1200 cc of urine. He confirms he feels better after this. Abdomen is less firm Will order Olea catheter for acute urinary retention. 17:08 pm Workup in the emergency department so far shows white count of 12.3. Chemistries show bicarb is slightly low at 20. BUN is higher than previously at 19. Otherwise creatinine is stable as is sodium and potassium. Urinalysis today shows no evidence of infection. There are no white cells or bacteria or nitrites. CT scan the brain is unremarkable CT scan of the chest shows chronic consolidation of the dependent lung bases without change from prior CT scan in November of 2020. Small pleural effusion. CT scan of the abdomen shows large volume of stool in the colon but no acute findings. Case discussed with MRI. They are able to do an MRI of the brain today. ABG ordered to assess for potential CO2 retention as cause of confusion and delirium 19:54. Blood gas shows pCO2 is 26. PO2 is 110. Bicarb is 19. No evidence this would be causing his mental status changes. His MRI shows no acute changes, only minimal nonspecific white matter changes. I discussed these findings with his fiancee who was at bedside. It appears the main issue today was urinary Retention. He is stable for discharge home. Follow-up with Urology. Also follow-up with Neurology MDM - Abdominal Pain Lab Data Result diagrams: 04/01/21 15:27 04/01/21 15:27 Labs: Lab Results 04/01/21 04/01/21 04/01/21 Range/Units 13:46 13:46 15:27 WBC 12.3 H (4.8-10.8) X10*3/uL RBC 3.82 L (4.60-5.80) X10*6/uL Hgb 11.7 L (14.0-18.0) g/dl Hct 36.2 L (42.0-52.0) % MCV 94.8 (80.0-98.0) fL MCH 30.6 (27.0-33.0) pg MCHC 32.3 (31.0-36.0) g/dl RDW 14.1 (11.0-16.0) % Plt Count 352 (160-400) X10*3/uL MPV 9.6 (9.4-12.4) fL Immature Gran % (Auto) 0.5 H (0.0-0.4) % Neut % (Auto) 71.3 (45-73) % Lymph % (Auto) 19.5 L (20-40) % [place] % (Auto) 5.8 (2-11) % Eos % (Auto) 2.4 (0-4) % Baso % (Auto) 0.5 (0-2) % Lymph # (Auto) 2.4 (1.2-4.9) X10*3/uL [place] # (Auto) 0.7 (0.1-1.2) X10*3/uL Eos # (Auto) 0.3 (0.0-0.4) X10*3/uL Baso # (Auto) 0.1 (0.0-0.2) X10*3/uL Abs Immat Gran (auto) 0.06 H (0.00-0.03) X10*3/uL Absolute Neuts (auto) 8.8 H (2.0-8.3) x10*3/uL Absolute Nucleated RBC 0.000 (0.0-0.012) X10*3/uL Nucleated RBC % (auto) 0.0 (0.0-0.2) /100WBC PT (9.9-13.0) SEC INR (0.9-1.1) D-Dimer High Sensitivty NG/ML O2 Saturation % ABG pH at Pt Temp (7.35-7.45) ABG pCO2 at Pt Temp (32-45) mmHg ABG pO2 at Pt Temp (83-108) mmHg ABG HCO3 (22-26) mmol/L ABG Base Excess (Actual) mmol/L Sodium (135-145) mmol/L Potassium (3.3-5.1) mmol/L Chloride (96-108) mmol/L Carbon Dioxide (22-29) mmol/L Anion Gap (12-20) BUN (9-16) mg/dL Creatinine (0.5-1.4) mg/dL Estim Creat Clear Calc Estimated GFR Random Glucose (60-115) mg/dL Lactic Acid (0.5-2.0) mmol/L Calcium (8.4-10.2) mg/dL Total Bilirubin (0.0-1.0) mg/dL AST (5-37) U/L ALT (0-40) U/L Alkaline Phosphatase (39-117) U/L Ammonia (13-55) umol/L Total Protein (6.5-8.0) g/dL Albumin (3.5-5.0) g/dL Lipase (8-78) U/L Urine Color YELLOW Urine Appearance CLOUDY Urine pH 6.5 (5.0-8.0) Ur Specific [place] 1.010 (1.005-1.025) Urine Protein NEG (NEG-TRACE) MG/DL Urine Glucose (UA) NEG (NEG) MG/DL Urine Ketones NEG (NEG) MG/DL Urine Blood NEG (NEG) Urine Nitrite NEG (NEG) Ur Leukocyte Esterase NEG (NEG) COVID-19 ([place]) Negative (Negative) COVID-19 Clin Com See Note 04/01/21 04/01/21 04/01/21 Range/Units 15:27 15:27 15:27 WBC (4.8-10.8) X10*3/uL RBC (4.60-5.80) X10*6/uL Hgb (14.0-18.0) g/dl Hct (42.0-52.0) % MCV (80.0-98.0) fL MCH (27.0-33.0) pg MCHC (31.0-36.0) g/dl RDW (11.0-16.0) % Plt Count (160-400) X10*3/uL MPV (9.4-12.4) fL Immature Gran % (Auto) (0.0-0.4) % Neut % (Auto) (45-73) % Lymph % (Auto) (20-40) % [place] % (Auto) (2-11) % Eos % (Auto) (0-4) % Baso % (Auto) (0-2) % Lymph # (Auto) (1.2-4.9) X10*3/uL [place] # (Auto) (0.1-1.2) X10*3/uL Eos # (Auto) (0.0-0.4) X10*3/uL Baso # (Auto) (0.0-0.2) X10*3/uL Abs Immat Gran (auto) (0.00-0.03) X10*3/uL Absolute Neuts (auto) (2.0-8.3) x10*3/uL Absolute Nucleated RBC (0.0-0.012) X10*3/uL Nucleated RBC % (auto) (0.0-0.2) /100WBC PT 13.6 H (9.9-13.0) SEC INR 1.2 H (0.9-1.1) D-Dimer High Sensitivty < 150 NG/ML O2 Saturation % ABG pH at Pt Temp (7.35-7.45) ABG pCO2 at Pt Temp (32-45) mmHg ABG pO2 at Pt Temp (83-108) mmHg ABG HCO3 (22-26) mmol/L ABG Base Excess (Actual) mmol/L Sodium 137 (135-145) mmol/L Potassium 3.8 (3.3-5.1) mmol/L Chloride 108 (96-108) mmol/L Carbon Dioxide 20 L (22-29) mmol/L Anion Gap 13 (12-20) BUN 19 H (9-16) mg/dL Creatinine 0.47 L (0.5-1.4) mg/dL Estim Creat Clear Calc 242.1 Estimated GFR > 60 Random Glucose 97 (60-115) mg/dL Lactic Acid 1.5 (0.5-2.0) mmol/L Calcium 9.6 (8.4-10.2) mg/dL Total Bilirubin 0.4 (0.0-1.0) mg/dL AST 23 D (5-37) U/L ALT 50 H (0-40) U/L Alkaline Phosphatase 119 H (39-117) U/L Ammonia (13-55) umol/L Total Protein 7.0 (6.5-8.0) g/dL Albumin 4.0 (3.5-5.0) g/dL Lipase 50 (8-78) U/L Urine Color Urine Appearance Urine pH (5.0-8.0) Ur Specific [place] (1.005-1.025) Urine Protein (NEG-TRACE) MG/DL Urine Glucose (UA) (NEG) MG/DL Urine Ketones (NEG) MG/DL Urine Blood (NEG) Urine Nitrite (NEG) Ur Leukocyte Esterase (NEG) COVID-19 ([place]) (Negative) COVID-19 Clin Com 04/01/21 04/01/21 Range/Units 15:27 17:30 WBC (4.8-10.8) X10*3/uL RBC (4.60-5.80) X10*6/uL Hgb (14.0-18.0) g/dl Hct (42.0-52.0) % MCV (80.0-98.0) fL MCH (27.0-33.0) pg MCHC (31.0-36.0) g/dl RDW (11.0-16.0) % Plt Count (160-400) X10*3/uL MPV (9.4-12.4) fL Immature Gran % (Auto) (0.0-0.4) % Neut % (Auto) (45-73) % Lymph % (Auto) (20-40) % [place] % (Auto) (2-11) % Eos % (Auto) (0-4) % Baso % (Auto) (0-2) % Lymph # (Auto) (1.2-4.9) X10*3/uL [place] # (Auto) (0.1-1.2) X10*3/uL Eos # (Auto) (0.0-0.4) X10*3/uL Baso # (Auto) (0.0-0.2) X10*3/uL Abs Immat Gran (auto) (0.00-0.03) X10*3/uL Absolute Neuts (auto) (2.0-8.3) x10*3/uL Absolute Nucleated RBC (0.0-0.012) X10*3/uL Nucleated RBC % (auto) (0.0-0.2) /100WBC PT (9.9-13.0) SEC INR (0.9-1.1) D-Dimer High Sensitivty NG/ML O2 Saturation 99.0 % ABG pH at Pt Temp 7.45 (7.35-7.45) ABG pCO2 at Pt Temp 26 L (32-45) mmHg ABG pO2 at Pt Temp 110 H (83-108) mmHg ABG HCO3 19 L (22-26) mmol/L ABG Base Excess (Actual) -3.3 mmol/L Sodium (135-145) mmol/L Potassium (3.3-5.1) mmol/L Chloride (96-108) mmol/L Carbon Dioxide (22-29) mmol/L Anion Gap (12-20) BUN (9-16) mg/dL Creatinine (0.5-1.4) mg/dL Estim Creat Clear Calc Estimated GFR Random Glucose (60-115) mg/dL Lactic Acid (0.5-2.0) mmol/L Calcium (8.4-10.2) mg/dL Total Bilirubin (0.0-1.0) mg/dL AST (5-37) U/L ALT (0-40) U/L Alkaline Phosphatase (39-117) U/L Ammonia 24 (13-55) umol/L Total Protein (6.5-8.0) g/dL Albumin (3.5-5.0) g/dL Lipase (8-78) U/L Urine Color Urine Appearance Urine pH (5.0-8.0) Ur Specific [place] (1.005-1.025) Urine Protein (NEG-TRACE) MG/DL Urine Glucose (UA) (NEG) MG/DL Urine Ketones (NEG) MG/DL Urine Blood (NEG) Urine Nitrite (NEG) Ur Leukocyte Esterase (NEG) COVID-19 ([place]) (Negative) COVID-19 Clin Com Discharge Plan Discharge Clinical Impression: Acute urinary retention Patient Disposition: Home, Self-Care Instructions: Olea Catheter Placement and Care (ED), Urinary Retention in Men (ED) Additional Instructions: Follow-up with urology. Dr. Teixeira. See phone number provided. Also call your neurologist for follow-up. Her workup here showed urinary retention of 1200 cc of urine. Symptoms were reviewed soft after [place] catheter placement. He will need to keep the [place] catheter in for least the next several days if not longer. Prescriptions: No Action docusate sodium [Silace] 50 mg/5 mL liquid 100 mg feeding tube BID 0RF trazodone 50 mg tablet 1 tab feeding tube BEDTIME PRN (Reason: Sleep) 0RF oxycodone 5 mg/5 mL solution 10 - 20 mg feeding tube Q3H PRN (Reason: Pain (Scale Score 4-6)) 0RF Rx Instructions: give with hydromorphone gabapentin 250 mg/5 mL solution 600 mg feeding tube Q8H 0RF Rx Instructions: give with baclofen sennosides [senna] 8.8 mg/5 mL syrup 5 - 10 ml feeding tube BEDTIME PRN (Reason: Constipation) 0RF diazepam 5 mg/5 mL (1 mg/mL) solution 4 mg feeding tube Q6H PRN (Reason: Muscle Spasm) 0RF fentanyl 100 mcg/hr patch 72 hour 1 patch topical Q72H 0RF baclofen 10 mg tablet 5 mg feeding tube Q8H 0RF Rx Instructions: give with gabapentin lidocaine 5 % adhesive patch,medicated 1 - 3 patch topical DAILY 0RF polyethylene glycol 3350 17 gram/dose powder 17 g feeding tube DAILY 0RF albuterol sulfate 90 mcg/actuation HFA aerosol inhaler 2 puff inhalation Q6H 0RF acetaminophen [Pain Relief Adult] 500 mg/15 mL liquid 500 mg feeding tube Q4H PRN (Reason: Pain (Scale Score 1-3)) 0RF enoxaparin 40 mg/0.4 mL syringe 40 mg subcut DAILY 0RF zinc sulfate 50 mg zinc (220 mg) capsule 220 mg feeding tube DAILY 0RF thiamine mononitrate (vit B1) [Vitamin B-1 (mononitrate)] 100 mg tablet 100 mg feeding tube DAILY 0RF ondansetron HCl 4 mg/5 mL Solution 4 mg PO Q4H PRN (Reason: Nausea And Vomiting) 0RF nicotine 7 mg/24 hr Patch 24 Hour 1 patch TRANSDERMAL DAILY 0RF cefdinir 250 mg/5 mL Suspension For Reconstitution 300 mg feeding tube BID 0RF Rx Instructions: x 7 days ( 03/28/21 to 04/03/21) cholecalciferol (vitamin D3) [Vitamin D3] 50 mcg (2,000 unit) Capsule 50 mcg feeding tube DAILY 0RF bismuth subsalicylate [Pepto-Bismol] 262 mg/15 mL Suspension 262 mg PO Q4H PRN (Reason: upset stomach) 0RF Rx Instructions: do not exceed 8 doses in a 24 hour period Atrovent HFA 17 mcg/actuation HFA aerosol inhaler 2 puff inhalation Q6H 0RF Relistor 8 mg/0.4 mL syringe 4 - 8 mg subcut DAILY PRN (Reason: Constipation) 0RF famotidine 20 mg tablet 20 mg PO BID 0RF bupropion HCl 100 mg tablet 150 mg PO BID 0RF fluconazole 40 mg/mL suspension for reconstitution 100 mg feeding tube DAILY 0RF [facility] 10 billion cell -200 mg tablet,chewable 1 tab PO BID 0RF simethicone [Infants Simethicone] 40 mg/0.6 mL drops,suspension 0.9 ml PO TID PRN (Reason: gas) 0RF Referrals: Ahmet Teixeira MD [Physician] - 2 days PMF Past Medical History Medical History (Updated 04/01/21 @ 19:57 by Stewart Jalloh MD) ALS (amyotrophic lateral sclerosis) Chronic hypercapnic respiratory failure Mucus plugging of bronchi Pneumothorax Tracheostomy care Social History Social History (Updated 12/26/20 @ 10:20 by SUNDAR Tan) Alcohol intake: former Patient Tobacco Use Status: Former Tobacco user Tobacco use type: Cigarette Years Smoked: 20 years Use of substances other than those prescribed or required for medical reasons: No Advance Directives: Yes Advance Directives on File: Yes Advance Directives Date on File: 12/04/20 service: No Current occupational status: previously employed
--- NOTE | 2021-04-01 12:34 | PHA.MEDREC ---
Pharmacy Consult ? Medication Reconciliation Pharmacy has completed the medication reconciliation. Patient had list.
--- NOTE | 2021-04-01 13:21 | PC.NURSE ---
Following straight cath for u/a pt reports feeling better. abd is less taught. urine was dark yellow with sediment at the end of cath.
[2021-04-01 13:57] LABS: Appearance Urine CLOUDY; Color Urine YELLOW; Glucose Urine UA NEG (NEG); Leukocyte Esterase Urine NEG (NEG); Nitrite Urine NEG (NEG); PH 6.5 (5.0-8.0); Urine Blood NEG (NEG); Urine Ketones NEG (NEG); Urine Protein NEG (NEG-TRACE)
[2021-04-01 14:30] LABS: COVID-19 Test Negative (Negative)
--- NOTE | 2021-04-01 15:07 | PC.NURSE ---
pt tolerate CT, no events of note. awaits femoral stick from MD. family remains at bedside. states that patient's metation has been waxing and waining. has not been sleeping well then is altered and unable to use communication device as he normally would.
[2021-04-01 15:36] LABS: MANUAL DIFF FLAG NO
[2021-04-01 15:38] LABS: Basophils Absolute Auto 0.1 X10*3/uL (0.0-0.2); Basophils Percent Auto 0.5 % (0-2); Eosinophils Absolute Auto 0.3 X10*3/uL (0.0-0.4); Eosinophils Percent Auto 2.4 % (0-4); Hematocrit 36.2 % (42.0-52.0); Hemoglobin 11.7 g/dl (14.0-18.0); Imm Gran Abs Auto 0.06 X10*3/uL (0.00-0.03); Imm Gran Pct Auto 0.5 % (0.0-0.4); Lymphocytes Absolute Auto 2.4 X10*3/uL (1.2-4.9); Lymphocytes Percent Auto 19.5 % (20-40); Mean Corpuscular HGB Conc 32.3 g/dl (31.0-36.0); Mean Corpuscular Hemoglobin 30.6 pg (27.0-33.0); Mean Corpuscular Volume 94.8 fL (80.0-98.0); Mean Platelet Volume 9.6 fL (9.4-12.4); Monocytes Absolute Auto 0.7 X10*3/uL (0.1-1.2); Monocytes Percent Auto 5.8 % (2-11); Neutrophils Absolute Auto 8.8 x10*3/uL (2.0-8.3); Neutrophils Percent Auto 71.3 % (45-73); Platelet Count 352 X10*3/uL (160-400); Red Blood Count 3.82 X10*6/uL (4.60-5.80); Red Cell Distribution Width 14.1 % (11.0-16.0); White Blood Count 12.3 X10*3/uL (4.8-10.8)
[2021-04-01 15:43] LABS: INTERNATIONAL NORM RATIO 1.2 (0.9-1.1); Prothrombin Time 13.6 SEC (9.9-13.0)
[2021-04-01 15:55] LABS: Ammonia 24 umol/L (13-55)
[2021-04-01 15:56] LABS: Alanine Aminotransferase 50 U/L (0-40); Alkaline Phosphatase 119 U/L (39-117); Anion Gap 13 (12-20); Aspartate Amino Transferase 23 U/L (5-37); Bilirubin Total 0.4 mg/dL (0.0-1.0); Blood Urea Nitrogen 19 mg/dL (9-16); Calcium 9.6 mg/dL (8.4-10.2); Carbon Dioxide 20 mmol/L (22-29); Chloride 108 mmol/L (96-108); Creatinine Clr Calc Pharmacy 242.1; D Dimer High Sensitivity < 150 NG/ML; Estimated Glomerular Filt Rate > 60; Glucose Random 97 mg/dL (60-115); Lipase 50 U/L (8-78); Potassium 3.8 mmol/L (3.3-5.1); Sodium 137 mmol/L (135-145)
[2021-04-01 15:58] LABS: Lactic Acid 1.5 mmol/L (0.5-2.0)
--- NOTE | 2021-04-01 16:17 | PC.NURSE ---
Pt cleansed of sml wet BM, [place] inserted with 15 cc out. none had drained with [place] cath. awaiting CT results. color remains good. nsr on monitor. no breakdown on buttocks. this RN asked faily about positioning to left or right sside lying and they state that patient doesn't like it. feet elevated,
[2021-04-01 17:38] LABS: ABG Base Excess -3.3 mmol/L; ABG HCO3 19 mmol/L (22-26); ABG pCO2 26 mmHg (32-45); ABG pH 7.45 (7.35-7.45); ABG pO2 110 mmHg (83-108)
[2021-04-01 17:57] LABS: ABG Refer to POC result
[2021-04-01] MEDS: fentaNYL 75 MCG PATCH.TD72 TRANSDERMA (18:40)
== END 2021-04-01 20:30 | disposition home or self-care (01) ==
PROVIDERS: Emergency Provider Emergency Medicine; PCP Pediatrics
DX: J18.9 Pneumonia, unspecified organism (principal); R33.9 Retention of urine, unspecified; R10.9 Unspecified abdominal pain; R41.0 Disorientation, unspecified; R50.9 Fever, unspecified; G12.21 Amyotrophic lateral sclerosis; Z20.822 Contact with and (suspected) exposure to COVID-19; Z79.899 Other long term (current) drug therapy
CPT/HCPCS: 70450; 70551; 71045; 71250; 74176; 80053; 81003; 82140; 82803; 83605; 83690; 85025; 85379; 85610; 87040; 87635; 94002; 94003; 96360; 99284; 99285

== ENCOUNTER → 2021-04-11 13:25 | Outpatient (BNVA) | payer BC, MEDICARE, MEDICAID, SELFPAY | PROVIDERS: PCP Pediatrics; Visit Provider Urology ==

== ENCOUNTER → 2021-04-18 14:13 | Outpatient (BNVA) | payer BC, MEDICARE, MEDICAID, SELFPAY | PROVIDERS: PCP Pediatrics; Visit Provider Hospitalist ==

== ENCOUNTER 2021-05-12 09:09 | Day surgery (SDC) | payer BC, MEDICARE, MEDICAID, SELFPAY ==
[2021-05-07 14:43] VITALS: BMI 24.3
--- NOTE | 2021-05-09 15:18 | HO.ANESPROP2 ---
Documented by User: Aletha Velazco NP 05/09/21 15:51 HPI - Anesthesia Eval Consult details Narrative: 35yo M for Insertion Suprapubic Tube and Bronchoscopy Fiberoptic ALS vented via trach, resides at home Optimized per PCP, Dr Moncada. Fentanyl currently being titrated down d/t concern for oversedation/hypotension as noted in 02/2021 office visit. (05/09/21 Addendum to 02/2021 note read to this provider by RACHELE Raines. Maria Luisa fax not working. Will continue to attempt fax to have before OR) Chronic opioids - fentanyl patch and oxy via g tube Enoxaparin daily Case reviewed with Dr Puente Cardiac Arrest at [facility] with Succinylcholine [facility] Active Problems Active Problems: All Active Problems (Updated 05/07/21 @ 14:38 by Lesa Carbone RN) Chronic hypoxemic respiratory failure (Acute) ALS (amyotrophic lateral sclerosis) (Acute) Hypotonic neurogenic bladder (Acute) Consolidation of right lower lobe of lung (Acute) Chronic hypercapnic respiratory failure (Acute) Pneumothorax (Acute) Tracheostomy care (Acute) Past Medical History Medical History (Updated 05/07/21 @ 14:38 by Lesa Carbone RN) ALS (amyotrophic lateral sclerosis) Anxiety Asthma Bedridden Chronic hypercapnic respiratory failure Consolidation of right lower lobe of lung Depression Gastrostomy tube in place Mucus plugging of bronchi Pneumothorax Tracheostomy care Surgical History Surgical History (Updated 05/07/21 @ 14:38 by Lesa Carbone, RACHELE) History of appendectomy History of bronchoscopy Hx of tracheostomy Social History Social History Are you a primary administrator health care facility to a significant other at home: No Do you presently have visiting nurse or other home services: Yes Alcohol intake: former Patient Tobacco Use Status: Former Tobacco user Tobacco use type: Cigarette Years Smoked: 20 years Advance Directives Date on File: 12/04/20 service: No Current occupational status: previously employed Meds Allergies Allergy/AdvReac Type Severity Reaction Status Date / Time succinylcholine Allergy Severe Cardiac Verified 05/07/21 12:21 Arrest Home Medications Medication Instructions Recorded Confirmed Last Taken Type acetaminophen 500 mg/15 mL oral 500 mg FEEDING TUBE Q4H PRN 12/04/20 05/07/21 12/04/20 History liquid (Pain Relief Adult) albuterol sulfate 90 mcg/actuation 2 puff INHALATION Q6H 12/04/20 05/07/21 05/12/21 History aerosol inhaler diazepam 5 mg/5 mL (1 mg/mL) oral 4 mg FEEDING TUBE Q6H PRN 12/04/20 05/07/21 03/31/21 History solution docusate sodium 50 mg/5 mL oral 100 mg FEEDING TUBE BID 12/04/20 05/07/21 03/31/21 History liquid (Silace) enoxaparin 40 mg/0.4 mL 40 mg SUBCUT DAILY 12/04/20 05/12/21 05/10/21 History subcutaneous syringe gabapentin 250 mg/5 mL oral 600 mg FEEDING TUBE Q8H 12/04/20 05/07/21 04/01/21 History solution oxycodone 5 mg/5 mL oral solution 10 - 20 mg FEEDING TUBE Q3H PRN 12/04/20 05/07/21 05/12/21 History polyethylene glycol 3350 17 17 g FEEDING TUBE DAILY 12/04/20 05/07/21 03/31/21 History gram/dose oral powder sennosides 8.8 mg/5 mL oral syrup 5 - 10 ml FEEDING TUBE BEDTIME PRN 12/04/20 05/07/21 12/04/20 History (senna) thiamine mononitrate (vit B1) 100 100 mg FEEDING TUBE DAILY 12/04/20 05/07/21 03/31/21 History mg tablet (Vitamin B-1 (mononitrate)) zinc sulfate 50 mg zinc (220 mg) 220 mg FEEDING TUBE DAILY 12/04/20 05/07/21 03/31/21 History capsule famotidine 20 mg tablet 20 mg PO BID 12/26/20 05/07/21 03/31/21 History fluconazole 40 mg/mL oral 100 mg FEEDING TUBE DAILY 12/26/20 05/07/21 Unknown History suspension Lactobacil rhamnosus GG 10 billion 1 tab PO BID 02/11/21 05/07/21 Unknown History cell-inulin 200 mg chewable tablet ([facility]) bismuth subsalicylate 262 mg/15 mL 262 mg PO Q4H PRN 04/01/21 05/07/21 Unknown History oral suspension (Pepto-Bismol) cholecalciferol (vitamin D3) 50 50 mcg FEEDING TUBE DAILY 04/01/21 05/07/21 03/31/21 History mcg (2,000 unit) capsule (Vitamin D3) ipratropium bromide 17 2 puff INHALATION Q6H 04/01/21 05/07/21 05/12/21 History mcg/actuation HFA aerosol inhaler (Atrovent HFA) methylnaltrexone 8 mg/0.4 mL 4 - 8 mg SUBCUT DAILY PRN 04/01/21 05/07/21 Unknown History subcutaneous syringe (Relistor) ondansetron HCl 4 mg/5 mL oral 4 mg PO Q4H PRN 04/01/21 05/07/21 Unknown History solution fentanyl 25 mcg/hr transdermal patch TRANSDERMAL 05/07/21 05/07/21 05/11/21 History patch Exam Exam Date and Time: May 09, 2021 1518 Height,Weight and Vital Signs: Height 5 ft 8 in Weight 72.575 kg Pertinent Lab Results Pertinent Lab Results: Laboratory Tests 04/01/21 04/01/21 15:27 15:27 WBC 12.3 H Hgb 11.7 L Hct 36.2 L Plt Count 352 Sodium 137 Potassium 3.8 Chloride 108 Carbon Dioxide 20 L BUN 19 H Creatinine 0.47 L Narrative Narrative: EKG 11/2020 Vent. Rate : 090 BPM ? ? Atrial Rate : 090 BPM ?? P-R Int : 000 ms? QRS Dur : 086 ms ? ? QT Int : 374 ms ? ? ? P-R-T Axes : 000 042 -24 degrees ?? QTc Int : 457 ms ? Normal sinus rhythm ST & T wave abnormality, consider inferior ischemia Abnormal ECG ? ST more depressed Inferior leads Lateral leads Assessment and Plan Assessment Anesthesia Assessment: Chart Reviewed Documented by User: Clifford Sandoval MD 05/12/21 17:03 [facility] Past Medical History Medical History (Updated 05/07/21 @ 14:38 by Lesa Carbone RN) ALS (amyotrophic lateral sclerosis) Anxiety Asthma Bedridden Chronic hypercapnic respiratory failure Consolidation of right lower lobe of lung Depression Gastrostomy tube in place Mucus plugging of bronchi Pneumothorax Tracheostomy care Family History Family history of problems with anesthesia: No Surgical History Surgical History (Updated 05/07/21 @ 14:38 by Lesa Carbone, RACHELE) History of appendectomy History of bronchoscopy Hx of tracheostomy History of Problems with Anesthesia: Yes (cardiac arrest after Succinylcholine administration ) Social History Social History Are you a primary administrator health care facility to a significant other at home: No Do you presently have visiting nurse or other home services: Yes Alcohol intake: former Patient Tobacco Use Status: Former Tobacco user Tobacco use type: Cigarette Years Smoked: 20 years Advance Directives Date on File: 12/04/20 service: No Current occupational status: previously employed Meds Allergies Allergy/AdvReac Type Severity Reaction Status Date / Time succinylcholine Allergy Severe Cardiac Verified 05/07/21 12:21 Arrest Home Medications Medication Instructions Recorded Confirmed Last Taken Type acetaminophen 500 mg/15 mL oral 500 mg FEEDING TUBE Q4H PRN 12/04/20 05/07/21 12/04/20 History liquid (Pain Relief Adult) albuterol sulfate 90 mcg/actuation 2 puff INHALATION Q6H 12/04/20 05/07/21 05/12/21 History aerosol inhaler diazepam 5 mg/5 mL (1 mg/mL) oral 4 mg FEEDING TUBE Q6H PRN 12/04/20 05/07/21 03/31/21 History solution docusate sodium 50 mg/5 mL oral 100 mg FEEDING TUBE BID 12/04/20 05/07/21 03/31/21 History liquid (Silace) enoxaparin 40 mg/0.4 mL 40 mg SUBCUT DAILY 12/04/20 05/12/21 05/10/21 History subcutaneous syringe gabapentin 250 mg/5 mL oral 600 mg FEEDING TUBE Q8H 12/04/20 05/07/21 04/01/21 History solution oxycodone 5 mg/5 mL oral solution 10 - 20 mg FEEDING TUBE Q3H PRN 12/04/20 05/07/21 05/12/21 History polyethylene glycol 3350 17 17 g FEEDING TUBE DAILY 10/05/07/21 03/31/21 History gram/dose oral powder sennosides 8.8 mg/5 mL oral syrup 5 - 10 ml FEEDING TUBE BEDTIME PRN 12/04/20 05/07/21 12/04/20 History (senna) thiamine mononitrate (vit B1) 100 100 mg FEEDING TUBE DAILY 12/04/20 05/07/21 03/31/21 History mg tablet (Vitamin B-1 (mononitrate)) zinc sulfate 50 mg zinc (220 mg) 220 mg FEEDING TUBE DAILY 12/04/20 05/07/21 03/31/21 History capsule famotidine 20 mg tablet 20 mg PO BID 12/26/20 05/07/21 03/31/21 History fluconazole 40 mg/mL oral 100 mg FEEDING TUBE DAILY 12/26/20 05/07/21 Unknown History suspension Lactobacil rhamnosus GG 10 billion 1 tab PO BID 02/11/21 05/07/21 Unknown History cell-inulin 200 mg chewable tablet ([facility]) bismuth subsalicylate 262 mg/15 mL 262 mg PO Q4H PRN 04/01/21 05/07/21 Unknown History oral suspension (Pepto-Bismol) cholecalciferol (vitamin D3) 50 50 mcg FEEDING TUBE DAILY 04/01/21 05/07/21 03/31/21 History mcg (2,000 unit) capsule (Vitamin D3) ipratropium bromide 17 2 puff INHALATION Q6H 04/01/21 05/07/21 05/12/21 History mcg/actuation HFA aerosol inhaler (Atrovent HFA) methylnaltrexone 8 mg/0.4 mL 4 - 8 mg SUBCUT DAILY PRN 04/01/21 05/07/21 Unknown History subcutaneous syringe (Relistor) ondansetron HCl 4 mg/5 mL oral 4 mg PO Q4H PRN 04/01/21 05/07/21 Unknown History solution fentanyl 25 mcg/hr transdermal patch TRANSDERMAL 05/07/21 05/07/21 05/11/21 History patch Exam Airway Mallampati Class: IV (unobtainable ) TM Dist: >3cm Neck ROM: Poor (Trach in situ ) Loose/Missing/Broken Teeth: Yes Heart: rrr Lungs: mechanical breath sounds b/l Assessment and Plan Assessment Anesthesia Assessment: Anesthesia Plan Discussed Final Anesthetic Review Family History of Problems with Anesthesia: No History of Problems with Anesthesia: Yes (cardiac arrest after Succinylcholine administration ) NPO: Yes ASA Class: IV Final Preanesthetic Review: Meds/Allgs Chart Reviewed, Consent Obtained/Reviewed and Anes Risks/Benef Reviewed Patient Risk: High Procedure Risk: High Anesthetic Plan Anesthetic Plan: GA Disposition: Standard PACU
[2021-05-12] VITALS (10 sets, daily range): BP systolic 116–153; BP diastolic 72–75; PULSE 74–105; RESP 16–26; TEMP 37–37.2; O2SAT 97–100
--- NOTE | 2021-05-12 09:07 | PC.NURSE ---
SISTER LAVERN IS HIS POA AND RESP BY BEDSIDE.
--- NOTE | 2021-05-12 09:21 | PC.NURSE ---
FIANCE AND SISTER BY BEDSIDE TO HELP GET PATIENT SITUATED. RESP BY BEDSIDE ASSISTING `
--- NOTE | 2021-05-12 09:34 | PC.NURSE ---
MD CODY BY BEDSIDE WITH PATIENT. RESP SCHUYLER BY BEDSIDE AND FAMILT BY BEDSIDE. JEB AND MYSELF BY BEDSIDE.
[2021-05-12] MEDS: Lactated Ringers 1,000 ML 100 ML IVCONT (10:19)
--- NOTE | 2021-05-12 10:34 | MHC.SHP ---
Pre-Procedural Eval Section A Date of Service: 05/12/21 The patient is an INPATIENT: No Changes since office visit: No Cold of Flu in the past 2 weeks, No New Medical Problems, No Changes in Medication and No Patient answered all questions The History & Physical has been completed within 30 days and I have reviewed it.: Yes Section B Chief Complaint: dysfunction of bladder Allergies: Allergies Allergy/AdvReac Type Severity Reaction Status Date / Time succinylcholine Allergy Severe Cardiac Verified 05/07/21 12:21 Arrest Plan I have reviewed the history and physical and performed a pertinent physical examination on my patient. No changes have occurred unless specified.
--- NOTE | 2021-05-12 10:39 | MHC.SHP ---
Pre-Procedural Eval Section A Date of Service: 05/12/21 The patient is an INPATIENT: No Changes since office visit: No Cold of Flu in the past 2 weeks, No New Medical Problems, No Changes in Medication and No Patient answered all questions The History & Physical has been completed within 30 days and I have reviewed it.: Yes Section B Chief Complaint: dysfunction of bladder Details of Present Illness: cysto and SPT placement Relevant Family History (Specify if Yes): No Relevant Social History: None Present Medications: see Short Stay Collaborative assessment Medical History: Significant History History of Previous Operations: No relevant previous surgery Allergies: Allergies Allergy/AdvReac Type Severity Reaction Status Date / Time succinylcholine Allergy Severe Cardiac Verified 05/07/21 12:21 Arrest Review of Systems Sugical H&P ROS: Negative: Constitution, Cardiovascular, Respiratory, Neurological, Psychiatric, Hem-Onc, Allergic/Immunologic, Gastrointestinal, Genitourinary, Musculoskeletal, Integumentary, Endocrine and Eyes/Ears/Nose/Throat Exam Surgical H&P Exam: Normal: HEENT, Normal: Heart, Normal: Lungs, Normal: Extremities, Normal: Abdomen, Normal: Skin and Normal: Neurological Plan Diagnosis/Plan: Unchanged (cysto and SPT placement) I have reviewed the history and physical and performed a pertinent physical examination on my patient. No changes have occurred unless specified.
--- NOTE | 2021-05-12 11:14 | PC.RT ---
pt. arrived to [facility] via [facility]. I met patient and sister and EMS in the ED and transported them to [facility]. Pt was on his home vent with current settings that Dr. Perez ordered for home. AC/VC 20-500-21%-6+. pt on Trilogy vent. Pt in no resp distress. Pt ib SSS being prepped for Bronchscopt that will be done br Dr. Benitez and a Supra Pubic Tube procedure also. Pt was sxn several times on the vent x 3 for sm pale white. PIP's 20-22. HR 79 SAT 97% BP 129/74 ETC02 26. At bedside is sister Dylan and Amina Cooper. Pt was taken off his home vent andplaced on standby. Pt was connectd to ambu bag where anesthesia was bagging the pt to the OR for his procedures. Resp on standby for PACU to place pt on his home vent and recovery.
--- NOTE | 2021-05-12 11:46 | P.OP_ITS ---
Operative Note Operative Note Date of Service: 05/12/21 Narrative: PreOperative Diagnosis:?neurogenic bladder Post Operative Diagnosis:?neurogenic bladder Procedure:? 1. Cystoscopy 2. Suprapubic tube placement Surgeon: Dr Ahmet Teixeira Anesthesia:?Sedation plus local Indications for procedure: 35-year-old male with ALS progressive and neurogenic bladder and indwelling F oley catheter. Recommendation for suprapubic tube in order to minimize damage to bladder. Procedure: After informed consent was verified the patient was brought to the operating room and placed in a supine position.? Anesthesia was administered per protocol. The patient was placed in a modified dorsal lithotomy position and prepped and draped in a sterile fashion. A safety pause was performed confirming patient identity, procedure and antibiotics. A 22 Hungarian cystoscope was inserted per urethra. Bladder was examined in its entirety. No abnormalities seen. Air bubble was located at the dome of the bladder. A finder needle was inserted 2 fingerbreaths above the symphysis pubis on the abdomen into the bladder.? The needle was visualized in the bladder via cystoscopy. Local anesthetic was infiltrated subcutaneously around the needle introduction site. A small, 1cm horizontal incision was made.? A trocar introducer was advanced through the abdominal wall into the bladder under visualization. The obturator was removed and a 16 Fr castle catheter placed. 7cc was used to inflate the balloon. The external portion of the trocar was removed. Dressing was placed, the bladder was emptied, and a drainage bag was attached. The patient tolerated the procedure and was transferred in stable condition to the recovery area. Suprapubic tube will be changed in 1 month with a follow-up office visit.
--- NOTE | 2021-05-12 13:03 | PM.OP ---
Brief Operative Note Date of Service: 05/12/21 Pre-op diagnosis: Atelectasis, pneumonia Post-op diagnosis: other (Atelectasis, pneumonia, endobronchial lesions) Procedure: Bronchoscopy with washings, brushings and endobronchial biopsies Implants: Surgeon: Ladarius Perez MD Anesthesia: GETA Was an Electrical And Instrument Engineer used for this Procedure?: No Estimated blood loss (mL): 1 Pathology: other (RML endobronchial polypoid lesion, LMS endobronchial polypoid lesion) Condition: stable Disposition: same day
--- NOTE | 2021-05-12 13:54 | PC.RT ---
pt recovered in PACU on his current home vent setting for appx 1 hour. Ambulance called and arrievd shortly after. Pt transported to PACU to Ambulance ([facility]) without incident and was placed in the back of the truck with his sister without incident. pt remained stable throughout his transport to the ambulance
--- NOTE | 2021-05-13 13:53 | OP_ITS ---
SURGEON: Ladarius Perez MD PREOPERATIVE DIAGNOSIS: POSTOPERATIVE DIAGNOSIS: PROCEDURE PERFORMED: Bronchoscopy with washings, brushings, and endobronchial biopsies. ESTIMATED BLOOD LOSS: COMPLICATIONS: ANESTHESIA: General endotracheal anesthesia via his already established tracheostomy. ASSISTANTS: SPECIMENS: ASA CLASSIFICATIONS: 4. PREOPERATIVE DIAGNOSES: Atelectasis, pneumonia. POSTOPERATIVE DIAGNOSES: Atelectasis, pneumonia, and endobronchial lesions. DESCRIPTION OF PROCEDURE: After the patient was adequately sedated, the flexible digital bronchoscope was placed via the tracheostomy tube to the level of the main julissa. Main julissa appeared to be normal and about 3-4 cm from the distal part of the tracheostomy. No evidence of any significant suction trauma. After instilling additional lidocaine, the bronchoscope was then navigated to the entire tracheobronchial tree. The patient did have moderate purulent secretions from the right lower lobe for the most part. In addition to that, the patient did have endobronchial lesions primarily in the right middle lobe and polypoid lesion just at the level of the julissa the medial and the lateral segments of the right middle lobe. In addition to another area of irregularity of the mucosa and the right lower lobe and a more pronounced polypoid lesion in the mid left mainstem bronchus area. Using brush thus introduced into the right lower lobe for microbiology. Bronchial washings were also collected primarily from the right lower lobe. All the mucus plugs were removed. Using forceps navigated to the right middle lobe and 2 endobronchial biopsies were collected from the polypoid area in the right middle lobe. That specimen cup was closed and placed in formalin. Subsequently after that, navigated to the left mainstem bronchus where using forceps, it was able to remove the whole polypoid area and again that was placed in formalin for further evaluation. The patient did receive 1 ampule of epinephrine mixed in with saline, half of the right middle lobe biopsy and half of the left mainstem bronchus biopsy. Good hemostasis at the end of the procedure. The bronchoscope was then removed. The total endoscopic time approximately 15 minutes. The patient tolerated the procedure well. Vital signs were stable throughout the procedure. INTERPRETATION: 1. Endobronchial biopsy with forceps of the right middle lobe polypoid lesion and of the left mainstem bronchus polypoid lesion. 2. Microscopic brushings from the right lower lobe. 3. Bronchial washings from the right lower lobe and other segments. Ladarius Perez MD MR/MODL / [id number]
== END 2021-05-12 13:45 | disposition home or self-care (01) ==
PROVIDERS: Hospitalist; PCP Pediatrics; Visit Provider Urology
PROC: (CPT 51102; principal; 2021-05-12 10:20)
PROC: 0BJ08ZZ Inspection of Tracheobronchial Tree, Via Natural or Artificial Opening Endoscopic (ICD-10-PCS; CPT 31622; 2021-05-12 10:20)
DX: N31.9 Neuromuscular dysfunction of bladder, unspecified (principal); J42 Unspecified chronic bronchitis; J98.09 Other diseases of bronchus, not elsewhere classified; J18.1 Lobar pneumonia, unspecified organism; J98.11 Atelectasis; G12.21 Amyotrophic lateral sclerosis; Z87.891 Personal history of nicotine dependence
CPT/HCPCS: 51102; 31625; 31623; 87071; 87077; 87102; 87186; 87205; 88305; 94799; J0131; J0171; J1956; J3010

== ENCOUNTER → 2021-05-13 10:08 | Outpatient (BNVA) | payer BC, MEDICARE, MEDICAID, SELFPAY | PROVIDERS: PCP Pediatrics; Visit Provider Urology | DX: N31.9 Neuromuscular dysfunction of bladder, unspecified (principal); Z87.891 Personal history of nicotine dependence | CPT/HCPCS: Q3014 ==

== ENCOUNTER → 2021-06-06 12:37 | Outpatient (BNVA) | payer BC, MEDICARE, MEDICAID, SELFPAY | PROVIDERS: PCP Pediatrics; Visit Provider Internal Medicine Gastroenterology | DX: Z13.89 Encounter for screening for other disorder (principal) ==

== ENCOUNTER → 2021-06-10 10:22 | Outpatient (BNVA) | payer BC, MEDICARE, MEDICAID, SELFPAY | PROVIDERS: PCP Pediatrics; Visit Provider Urology | DX: R33.9 Retention of urine, unspecified (principal); N31.9 Neuromuscular dysfunction of bladder, unspecified | CPT/HCPCS: 51702; 51705; 52005 ==